=== PATIENT | female | born 1950 | race Hispanic/Latino ===

== ENCOUNTER 2018-03-28 07:30 | Day surgery (SDC) | payer OTHER ==
--- NOTE | 2018-03-23 15:52 | RAD REPORT ---
EXAM DESCRIPTION: RAD - Chest Pa And Lat (2 Views) - 03/23/2018 3:00 pm CLINICAL HISTORY: Preop chest, pending cardiac catheterization COMPARISON: None. TECHNIQUE: PA and lateral views of the chest were obtained. FINDINGS: The lungs are clear. Interstitial markings are mildly prominent believed be baseline. Hea rt size is normal and central vasculature is within normal limits. No pleural effusion or pneumothor ax seen. No acute bony finding noted. No aortic abnormality. IMPRESSION: No acute cardiopulmonary process.
[2018-03-23 16:21] LABS: Absolute Lymphocytes (CBC) 1.9 K/uL (0.7-4.9); Absolute Monocytes 0.5 K/uL (0.1-1.3); Absolute Neutrophil 6.7 K/uL (1.8-8.0); Basophils % 0.4 % (0-1.3); Eosinophils % 1.3 % (0-4.4); Hematocrit 39.3 % (36.0-45.0); Lymphocytes % 20.8 % (15.3-44.8); MCH 30.4 pg (27.0-35.0); MPV 8.1 fL (7.6-11.3); Monocytes % 5.3 % (3.3-12.3); RBC Red Blood Cell Count 4.37 M/uL (3.86-4.86)
[2018-03-23 17:25] LABS: BUN Blood Urea Nitrogen 12 mg/dL (6-20); Bicarbonate 30 mEq/L (21-31); Glucose Level 88 mg/dL (65-120); Potassium 3.8 mEq/L (3.6-5.0); Sodium Level 139 mEq/L (135-145)
[2018-03-28] MEDS ORDERED: NA CHLORIDE 0.9% 500 ML ONE (07:54)
[2018-03-28] MEDS ORDERED: MIDAZOLAM HCL 2 MG/2 ML INJ ONE ×2 (10:43→11:02)
[2018-03-28] MEDS ORDERED: HEPA 1000U/500MLS 1,000 UNIT/500 ML BAG IV ONE (10:43)
[2018-03-28] MEDS ORDERED: LIDOCAINE 1% 20 ML MDV ONE (10:43)
[2018-03-28] MEDS ORDERED: FENTANYL CITR 100 MCG/2 ML ONE (10:44)
--- NOTE | 2018-03-29 12:10 | OP ---
Surgeon: Leif Cazares MD Plug Assembler: Elvie Tobias. Procedure: Left heart catheterization, selective coronary arteriogram. Indication: Unstable angina. History Of Present Illness: Ms. Miguel was brought to the filling station laborer as an outpatient. She was prepped and draped in the routine sterile fashion. Given 4 mg of Versed for IV sedation. 6-Lithuanian sheath i ntroduced in the right common femoral artery. Angio-Seal was used to close the case. 6-Lithuanian bakari ter was used to do the diagnostic coronary arteriogram. What I found approximately 3 years ago, Ms. Miguel had a calcified shell like lesion in the main, ostial right main and left main with about 20-30 % stenosis. Rest of the arteries were free of disease. The patient tolerated the procedure well. T here were no complications. Estimated Blood Loss: 5 cc. Total Conscious Sedation: 30 minutes. Final Diagnosis: Mild to moderate coronary artery disease. Continue medical therapy. ISAIAH/KERRY Voice ID: [id number] Report ID: [id number]
== END 2018-03-28 13:38 | disposition home or self-care (01) ==
LOC: CCL 07:30
DX: I25.110 Atherosclerotic heart disease of native coronary artery with unstable angina pectoris (principal); I65.23 Occlusion and stenosis of bilateral carotid arteries; I10 Essential (primary) hypertension; E78.5 Hyperlipidemia, unspecified; E78.6 Lipoprotein deficiency; K21.0 Gastro-esophageal reflux disease with esophagitis; F41.9 Anxiety disorder, unspecified; Z98.61 Coronary angioplasty status; Z91.018 Allergy to other foods; Z82.49 Family history of ischemic heart disease and other diseases of the circulatory system
CPT/HCPCS: 36415; 71046; 80048; 85025; 85610; 85730; 93454; C1893; J2250 ×2; J3010

== ENCOUNTER 2020-08-17 11:09 | Emergency (ER) | payer OTHER ==
--- OUTSIDE RECORDS SUMMARY | 2020-08-17 11:11 | XMS REPORT | Continuity of Care Document ---
:1950 Author Organization [facility] t Address [address] [place] [address] Care Team Providers Name Role Phone Diana Guillermo MD Attending Clinician Only, Test Attending Clinician Unavailable Diana Guillermo MD Admitting Clinician Problems This patient has no known problems. Allergies, Adverse Reactions, Alerts This patient has no known allergies or adverse reactions. Medications This patient has no known medications. Procedures This patient has no known procedures. Encounters Start End Encounter Admission Attending Care Care Encounter Source Date/Time Date/Time Type Type Clinicians Facility Department ID 2020-04-24 2020-04-24 [facility] [id number] 07:23:00 10:37:00 Encounter [place] [facility] [id number] [place] [id number] [facility] [id number] [place] 071 2020-04-23 2020-04-23 Laboratory Only, [facility] [id number] 13:23:58 13:38:58 Only Test [place] [id number] [place] [id number] [place] [id number] Results This patient has no known results.
[2020-08-17] MEDS ORDERED: MORPHINE 2 MG/ML SYR ONE ×2 (11:43→12:35)
[2020-08-17] MEDS ORDERED: ONDANSETRON 4 MG/2 ML VIAL ONE (11:43)
[2020-08-17 12:00] LABS: Protime INR 0.93
[2020-08-17 12:01] LABS: Absolute Lymphocytes (CBC) 1.8 K/uL (0.7-4.9); Basophils % 0.3 % (0-1.3); Hematocrit 39.4 % (36.0-45.0); Lymphocytes % 25.2 % (15.3-44.8); MPV 8.8 fL (7.6-11.3); RBC Red Blood Cell Count 4.42 M/uL (3.86-4.86)
[2020-08-17 12:18] LABS: ALT/SGPT 23 U/L (12-78); AST/SGOT 18 U/L (15-37); Albumin 3.7 g/dL (3.4-5.0); Alkaline Phosphatase 114 U/L (45-117); BUN Blood Urea Nitrogen 11 mg/dL (7-18); Bicarbonate 28 mmol/L (21-32); Bilirubin Direct < 0.1 mg/dL (0-0.2); Bilirubin Total 0.4 mg/dL (0.2-1.0); Glucose Level 94 mg/dL (74-106); NT PRO-BNP 288 pg/mL (<125); Potassium 3.5 mmol/L (3.5-5.1); Protein, Total 7.4 g/dL (6.4-8.2); Sodium Level 142 mmol/L (136-145); Troponin (Emerg Dept Use Only) < 0.02 ng/mL (0.0-0.045)
--- NOTE | 2020-08-17 12:19 | RAD REPORT ---
EXAM DESCRIPTION: RAD - Chest Single View - 08/17/2020 12:14 pm CLINICAL HISTORY: chest pain Chest pain. COMPARISON: Chest Pa And Lat (2 Views) dated 03/23/2018 FINDINGS: Portable technique limits examination quality. The lungs are grossly clear. The heart is upper limit of normal in size. No displaced fractures. IMPRESSION: No acute intrathoracic process suspected.
--- NOTE | 2020-08-17 13:30 | RAD REPORT ---
EXAM DESCRIPTION: CT - Angio Aorta For Dissection - 08/17/2020 1:08 pm CLINICAL HISTORY: Chest pain radiating to the back. chest pain COMPARISON: No comparisons TECHNIQUE: CT angiography of the aorta was performed with MIPs. All CT scans are performed using dose optimization technique as appropriate and may include automated exposure control or mA/KV adjustment according to patient size. FINDINGS: A left aortic arch is present with normal branching pattern of the great vessels.No acute aortic finding is seen such as aneurysm, penetrating ulcer or dissection. The celiac axis, SMA, JONATHON and renal arteries are patent. No evidence of pulmonary embolism. The lungs are clear. The liver demonstrates no focal mass or biliary dilatation.Cholecystectomy.The spleen, pancreas, adre nal glands and kidneys are within normal limits for arterial phase imaging. No bowel obstruction, free fluid or abscess.Prominent sigmoid diverticulosis coli without diverticuli tis.No pathologic enlarged lymphadenopathy identified.Normal appendix. No fracture or worrisome bone lesion seen. IMPRESSION: No acute aortic finding is demonstrated.
--- NOTE | 2020-08-17 15:21 | EDPHYS ---
Physician Documentation [facility] Name: Dari Miguel Age: 70 yrs Sex: Female : 1950 Arrival Date: 08/17/2020 Time: 11:11 Bed 16 Private MD: Leif Cazares S ED Physician Fco Hinojosa HPI: 08/17 11:25 This 70 yrs old Female presents to ER via Unassigned with complaints of Chest rn Pain, Back Pain. 11:25 The patient or guardian reports chest pain that is located primarily in the substernal rn area. The patient or guardian reports chest pain that is located primarily in the anterior chest wall. Onset: this morning. The pain radiates to The chest pain is described as a heaviness, a pressure. Duration: The patient or guardian reports multiple episodes, that are intermittent. Modifying factors: The symptoms are alleviated by nothing. the symptoms are aggravated by deep breath. Severity of pain: At its worst the pain was moderate in the emergency department the pain is unchanged. The patient has not experienced similar symptoms in the past. The patient has not recently seen a physician. Reports back pain yesterday, began with chest pain this morning, no trauma, did do yard work yesterday, not getting better, feels worse, no fever/cough. Hurts more with deep breath. No cough/fever/abd pain. Just had stress test as outpt with Dr. cazares, but no results yet. . Historical: - Allergies: 11:13 PECANS; aa5 11:13 Peanut; aa5 - Home Meds: 11:15 metoprolol tartrate 25 mg Oral tab once daily [Active]; omeprazole 40 mg Oral cpDR once aa5 daily [Active]; Plavix 75 mg Oral tab 1 tab once daily [Active]; furosemide 20 mg oral tab once daily [Active]; alprazolam 0.25 mg Oral tab 3 times per day [Active]; atorvastatin 40 mg oral tab once daily [Active]; - PMHx: 11:13 Hyperlipidemia; Anxiety; Hypertension; Acid Reflux; aa5 - PSHx: 11:13 Hysterectomy; Cholecystectomy; Appendectomy; aa5 - Immunization history:: Adult Immunizations unknown. - Social history:: Smoking status: Patient denies any tobacco usage or history of. - Family history:: not pertinent. - Hospitalizations: : No recent hospitalization is reported. ROS: 11:25 Constitutional: Negative for fever, chills, and weight loss, Eyes: Negative for injury, rn pain, redness, and discharge, Neck: Negative for injury, pain, and swelling, Cardiovascular: Negative for palpitations, and edema, Respiratory: Negative for cough, wheezing Abdomen/GI: Negative for abdominal pain, nausea, vomiting, diarrhea, and constipation, Back: + mid back pain MS/Extremity: Negative for injury and deformity, Skin: Negative for injury, rash, and discoloration, Neuro: Negative for headache, weakness, numbness, tingling, and seizure. Exam: 11:25 Constitutional: This is a well developed, well nourished patient who is awake, alert, rn sitting on edge of bed, appears anxious and uncomfortable Head/Face: Normocephalic, atraumatic. Cardiovascular: Regular rate and rhythm. No pulse deficits. Respiratory: Speaking full sentences. Unlabored. Abdomen/GI: soft, non-tender Back: No spinal tenderness. MS/ Extremity: Pulses equal, no cyanosis. Neuro: Awake and alert, GCS 15, oriented to person, place, time, and situation. Cranial nerves II-XII grossly intact. Motor strength 5/5 in all extremities. Sensory grossly intact. Vital Signs: 11:15 BP 185 / 63; Pulse 69; Resp 16 S; Temp 98.2(O); Pulse Ox 99% on R/A; Weight 90.72 kg aa5 (R); Height 5 ft. 0 in. (152.40 cm) (R); Pain 9/10; 11:48 BP 146 / 62; Pulse 60; Resp 20; Pulse Ox 100% on R/A; Pain 10/10; tw2 12:54 BP 135 / 49; Pulse 63; Resp 17; Pulse Ox 99% on R/A; Pain 10/10; tw2 13:50 BP 144 / 54; Pulse 66; Resp 17; Pulse Ox 98% on R/A; tw2 14:52 Pain 4/10; tw2 14:53 BP 116 / 60; Pulse 81; Resp 20; Pulse Ox 99% on R/A; tw2 11:15 Body Mass Index 39.06 (90.72 kg, 152.40 cm) aa5 11:48 pt reports pain "10 when it hits me, but it comes and goes" tw2 12:54 "its a 10 when it hits me, but it still hurts" tw2 MDM: 11:16 Patient medically screened. rn 12:29 ED course: No acute ischemia on ECG, neg troponin, clear CXR, improved some with repeat rn morphine. Awaiting CT aorta given chest and back pain. . 14:10 ED course: Called Dr. Cazares to discuss results of stress a few days ago, no answer. rn Unable to see results in our system, so put out call to [employer] instrument and tool maker service. Awaiting call back. Pain resolved. No acute findings. Repeat troponin sent. . 15:17 Differential diagnosis: acute myocardial infarction, acute pericarditis, anxiety, rn coronary artery disease chest wall pain, costochondritis, esophagitis, gastroesophageal reflux disease (GERD), pleurisy, pneumothorax, thoracic aortic disection. Data reviewed: vital signs, nurses notes, lab test result(s), EKG, radiologic studies, CT scan, plain films, and as a result, I will discharge patient. Counseling: I had a detailed discussion with the patient and/or guardian regarding: the historical points, exam findings, and any diagnostic results supporting the discharge/admit diagnosis, lab results, radiology results, the need for outpatient follow up, to return to the emergency department if symptoms worsen or persist or if there are any questions or concerns that arise at home. ED course: NO call back from cardiology. Repeat troponin negative, pain free, has appt with Dr. Cazares tomorrow at 10 AM, will dc home with return precautions. No ischemia on ECG.. 15:20 ED course: Pt reports this has been happening for months, just lasted longer today so rn worried her, states Dr. Cazares aware of these daily episodes. . 16:32 ED course: Aaron Cazares called back, reports stress test was normal and previous cath rn clean. Will see in clinic tomorrow as scheduled. . 08/17 11:52 Order name: Basic Metabolic Panel; Complete Time: 12:22 EDMS 08/17 11:52 Order name: Liver (Hepatic) Function; Complete Time: 12:22 EDMS 08/17 11:52 Order name: Troponin (Emerg Dept Use Only); Complete Time: 12:22 EDMS 08/17 11:52 Order name: NT PRO-BNP; Complete Time: 12:22 EDMS 08/17 11:52 Order name: CBC with Automated Diff; Complete Time: 12:22 EDMS 08/17 11:52 Order name: Protime (+INR); Complete Time: 12:22 EDMS 08/17 14:00 Order name: Troponin (emerg Dept Use Only); Complete Time: 15:16 rn 08/17 11:24 Order name: EKG; Complete Time: 12:07 rn 08/17 11:24 Order name: Cardiac monitoring; Complete Time: 11:26 rn 08/17 11:24 Order name: EKG - Nurse/Tech; Complete Time: 11:39 rn 08/17 11:24 Order name: IV Saline Lock; Complete Time: 11:39 rn 08/17 11:24 Order name: Labs collected and sent; Complete Time: 11:39 rn 08/17 11:24 Order name: O2 Per Protocol; Complete Time: 11:46 rn 08/17 11:24 Order name: O2 Sat Monitoring; Complete Time: 11:46 rn 08/17 11:58 Order name: Angio Aorta For Dissection; Complete Time: 13:34 EDMS 08/17 11:58 Order name: Chest Single View; Complete Time: 12:22 EDMS Administered Medications: 11:35 Drug: morphine 2 mg Route: IVP; Site: right antecubital; tw2 11:35 Drug: Zofran (Ondansetron) 4 mg Route: IVP; Site: right antecubital; tw2 12:55 Follow up: Response: No adverse reaction tw2 12:26 Drug: morphine 2 mg Route: IVP; Site: right antecubital; tw2 12:29 Follow up: Response: No adverse reaction; Pain is unchanged, physician notified; RASS: tw2 Alert and Calm (0) 14:01 Follow up: Response: No adverse reaction; Pain is unchanged, physician notified; RASS: tw2 Alert and Calm (0) 14:52 Follow up: Pain 4/10 Adult; Response: No adverse reaction; Pain is decreased; RASS: tw2 Alert and Calm (0) Disposition: 08/17/20 15:19 Discharged to Home. Impression: Chest pain, unspecified. - Condition is Stable. - Discharge Instructions: Nonspecific Chest Pain. - Prescriptions for Tramadol 50 mg Oral Tablet - take 1 tablet by ORAL route every 8 hours as needed; 12 tablet. - Medication Reconciliation Form, Thank You Letter, Antibiotic Education, Prescription Opioid Use form. - Follow up: Leif Cazares MD; When: Tomorrow; Reason: Recheck today's complaints, Re-evaluation by your physician. - Problem is an ongoing problem. - Symptoms have improved. Signatures: Dispatcher [employer] EDDC Fco Hinojosa MD MD rn Calderon, Audri RN RN aa5 Dacia Sloan RN RN tw2 Corrections: (The following items were deleted from the chart) 12:14 12:07 Chest Single View+RAD.RAD.BRZ ordered. EDMS EDMS 12:16 12:06 BASIC METABOLIC PANEL+C.LAB.BRZ ordered. EDMS EDMS 12:16 12:07 HEPATIC FUNCTION+C.LAB.BRZ ordered. EDMS EDMS 12:16 12:07 PROBNP+C.LAB.BRZ ordered. EDMS EDMS 12:16 12:07 TROPONIN (EMERG DEPT USE ONLY)+C.LAB.BRZ ordered. EDMS EDMS 12:16 12:07 LIPASE+C.LAB.BRZ ordered. EDMS EDMS 12:18 12:07 Angio Aorta For Dissection+CT.RAD.BRZ ordered. EDDC EDMS 12:28 12:07 CBC+H.LAB.BRZ ordered. EDMS EDMS 12:29 12:07 PROTIME (+INR)+COAG.LAB.BRZ ordered. EDDC EDMS 15:32 15:19 08/17/2020 15:19 Discharged to Home. Impression: Chest pain, unspecified. tw2 Condition is Stable. Forms are Medication Reconciliation Form, Thank You Letter, Antibiotic Education, Prescription Opioid Use. Follow up: Leif Cazares; When: Tomorrow; Reason: Recheck today's complaints, Re-evaluation by your physician. Problem is an ongoing problem. Symptoms have improved. rn
--- NOTE | 2020-08-17 15:21 | ER ---
Nurse's Notes [facility] Name: Dari Miguel Age: 70 yrs Sex: Female : 1950 Arrival Date: 08/17/2020 Time: 11:11 Bed 16 Private MD: Leif Cazares S Diagnosis: Chest pain, unspecified Presentation: 08/17 11:13 Chief complaint: Patient states: chest pain radiating to back that began this morning. aa5 Pt denies fever, cough. Pt reports hx of anxiety and also reports she takes Plavix but does not know the reason why. 11:13 Coronavirus screen: Client denies travel out of the [place] in the last 14 days. At this aa5 time, the client does not indicate any symptoms associated with coronavirus-19. Ebola Screen: Patient negative for fever greater than or equal to 101.5 degrees Fahrenheit, and additional compatible Ebola Virus Disease symptoms. Initial Sepsis Screen: Does the patient meet any 2 criteria? No. Patient's initial sepsis screen is negative. Does the patient have a suspected source of infection? No. Patient's initial sepsis screen is negative. Risk Assessment: Do you want to hurt yourself or someone else? Patient reports no desire to harm self or others. Onset of symptoms was July 2020. 11:13 Acuity: ANISHA 3 aa5 11:13 Method Of Arrival: Wheelchair aa5 Historical: - Allergies: 11:13 PECANS; aa5 11:13 Peanut; aa5 - Home Meds: 11:15 metoprolol tartrate 25 mg Oral tab once daily [Active]; omeprazole 40 mg Oral cpDR once aa5 daily [Active]; Plavix 75 mg Oral tab 1 tab once daily [Active]; furosemide 20 mg oral tab once daily [Active]; alprazolam 0.25 mg Oral tab 3 times per day [Active]; atorvastatin 40 mg oral tab once daily [Active]; - PMHx: 11:13 Hyperlipidemia; Anxiety; Hypertension; Acid Reflux; aa5 - PSHx: 11:13 Hysterectomy; Cholecystectomy; Appendectomy; aa5 - Immunization history:: Adult Immunizations unknown. - Social history:: Smoking status: Patient denies any tobacco usage or history of. - Family history:: not pertinent. - Hospitalizations: : No recent hospitalization is reported. Screenin:47 Abuse screen: Denies threats or abuse. Nutritional screening: No deficits noted. tw2 Tuberculosis screening: No symptoms or risk factors identified. Fall Risk Secondary diagnosis (15 points) impaired mobility. Assessment: 11:18 Reassessment: provider at bedside at this time. tw2 11:30 General: Appears in no apparent distress. uncomfortable, obese, well groomed, Behavior tw2 is calm, cooperative, appropriate for age. Pain: Complains of pain in chest Pain radiates to back Pain began 1 day ago. "last night". Neuro: Level of Consciousness is awake, alert, obeys commands, Oriented to person, place, time, situation. Cardiovascular: Reports chest pain, Heart tones S1 S2 Patient's skin is warm and dry. Respiratory: Airway is patent Respiratory effort is even, unlabored, Respiratory pattern is regular, symmetrical, Breath sounds are clear bilaterally. GI: No signs and/or symptoms were reported involving the gastrointestinal system. Abdomen is round non-distended, obese, Bowel sounds present X 4 quads. : No signs and/or symptoms were reported regarding the genitourinary system. EENT: No signs and/or symptoms were reported regarding the EENT system. Derm: No signs and/or symptoms reported regarding the dermatologic system. Musculoskeletal: Range of motion: intact in all extremities. 12:30 Reassessment: Patient appears in no apparent distress at this time. No changes from tw2 previously documented assessment. Patient and/or family updated on plan of care and expected duration. Pain level reassessed. Patient is alert, oriented x 3, equal unlabored respirations, skin warm/dry/pink. 13:58 Reassessment: provider at bedside at this time. tw2 14:01 Reassessment: Patient appears in no apparent distress at this time. No changes from tw2 previously documented assessment. Patient and/or family updated on plan of care and expected duration. Pain level reassessed. Patient is alert, oriented x 3, equal unlabored respirations, skin warm/dry/pink. 14:35 Reassessment: pt in restroom at this time, will draw repeat Trop after pt returns from tw2 restroom. 14:52 Reassessment: Patient appears in no apparent distress at this time. Patient and/or tw2 family updated on plan of care and expected duration. Pain level reassessed. Patient is alert, oriented x 3, equal unlabored respirations, skin warm/dry/pink. pt states "that second dose of pain medicine helped, i still feel it but is bearable. its like a 3 or 4 now" Patient states feeling better. Patient states symptoms have improved. 15:22 Reassessment: provider at bedside at this time going over results and discharge tw2 information. provider to add medication prescription at this time PRIOR to discharge. 15:31 Reassessment: Patient appears in no apparent distress at this time. No changes from tw2 previously documented assessment. Patient and/or family updated on plan of care and expected duration. Pain level reassessed. Patient is alert, oriented x 3, equal unlabored respirations, skin warm/dry/pink. Vital Signs: 11:15 BP 185 / 63; Pulse 69; Resp 16 S; Temp 98.2(O); Pulse Ox 99% on R/A; Weight 90.72 kg aa5 (R); Height 5 ft. 0 in. (152.40 cm) (R); Pain 9/10; 11:48 BP 146 / 62; Pulse 60; Resp 20; Pulse Ox 100% on R/A; Pain 10/10; tw2 12:54 BP 135 / 49; Pulse 63; Resp 17; Pulse Ox 99% on R/A; Pain 10/10; tw2 13:50 BP 144 / 54; Pulse 66; Resp 17; Pulse Ox 98% on R/A; tw2 14:52 Pain 4/10; tw2 14:53 BP 116 / 60; Pulse 81; Resp 20; Pulse Ox 99% on R/A; tw2 11:15 Body Mass Index 39.06 (90.72 kg, 152.40 cm) aa5 11:48 pt reports pain "10 when it hits me, but it comes and goes" tw2 12:54 "its a 10 when it hits me, but it still hurts" tw2 ED Course: 11:11 Patient arrived in ED. ag5 11:11 Leif Cazares MD is Private Physician. ag5 11:13 Arm band placed on Patient placed in an exam room, on a stretcher. aa5 11:16 Fco Hinojosa MD is Attending Physician. rn 11:18 Dacia Sloan RN is Primary Nurse. tw2 11:22 EKG done, by ED staff, reviewed by Fco Hinojosa MD. aa5 11:28 Triage completed. aa5 11:35 Inserted saline lock: 20 gauge in right antecubital area, using aseptic technique. tw2 Blood collected. 11:39 Patient has correct armband on for positive identification. Placed in gown. Bed in low mh5 position. Call light in reach. Side rails up X 1. Adult w/ patient. Warm blanket given. house repairer on. Pulse ox on. NIBP on. 11:39 Initial lab(s) drawn, by me, sent to lab. mh5 11:47 Patient maintains SpO2 saturation greater than 95% on room air. tw2 12:14 Chest Single View In Process Unspecified. EDMS 13:08 Angio Aorta For Dissection In Process Unspecified. EDMS 14:52 Troponin (emerg Dept Use Only) Sent. tw2 15:19 Leif Cazares MD is Referral Physician. rn 15:31 No provider procedures requiring assistance completed. IV discontinued, intact, tw2 bleeding controlled, No redness/swelling at site. Pressure dressing applied. Administered Medications: 11:35 Drug: morphine 2 mg Route: IVP; Site: right antecubital; tw2 11:35 Drug: Zofran (Ondansetron) 4 mg Route: IVP; Site: right antecubital; tw2 12:55 Follow up: Response: No adverse reaction tw2 12:26 Drug: morphine 2 mg Route: IVP; Site: right antecubital; tw2 12:29 Follow up: Response: No adverse reaction; Pain is unchanged, physician notified; RASS: tw2 Alert and Calm (0) 14:01 Follow up: Response: No adverse reaction; Pain is unchanged, physician notified; RASS: tw2 Alert and Calm (0) 14:52 Follow up: Pain 4/10 Adult; Response: No adverse reaction; Pain is decreased; RASS: tw2 Alert and Calm (0) Outcome: 15:19 Discharge ordered by . rn 15:31 Discharged to home via wheelchair, with family. tw2 15:31 Condition: stable 15:31 Discharge instructions given to patient, family, Instructed on discharge instructions, follow up and referral plans. no drinking with medication, no driving heavy equipment, medication usage, Demonstrated understanding of instructions, follow-up care, medications, Prescriptions given X 1. 15:32 Patient left the ED. tw2 Signatures: Dispatcher [employer] EDFco Casillas MD MD rn Calderon, Audri, RN RN luis5 Dacia Sloan RN RN tw2 Dari Reddy [facility] Allyson Lockhart [facility] Corrections: (The following items were deleted from the chart) 11:47 11:39 Inserted saline lock: 20 gauge in right antecubital area, using aseptic tw2 technique. Blood collected. [facility]
[2020-08-17 15:38] VITALS: TEMP 98.2
[2020-08-17 15:45] VITALS: BP 116/60; O2SAT 99
--- NOTE | 2020-08-19 16:12 | EKG ---
Test Date: 2020-08-17 Test Time: 12:26:48 Warehouse Assistant: ANTWAN MEASUREMENT RESULTS: Intervals: Rate: 70 AR: 160 QRSD: 86 QT: 400 QTc: 432 Proctor: P: 64 AR: 160 QRS: 43 T: 55 INTERPRETIVE STATEMENTS: Normal sinus rhythm with sinus arrhythmia Normal ECG Compared to ECG 08/17/2020 11:22:10 Myocardial infarct finding no longer present Electronically Signed On 08-19-20 16:08:30 CDT by Leif Cazares
== END 2020-08-17 15:32 | disposition home or self-care (01) ==
LOC: ER 11:09
DX: R07.9 Chest pain, unspecified (principal); I10 Essential (primary) hypertension; E78.5 Hyperlipidemia, unspecified; F41.9 Anxiety disorder, unspecified; Z79.01 Long term (current) use of anticoagulants; Z91.018 Allergy to other foods; Z91.010 Allergy to peanuts
CPT/HCPCS: 93005 ×2; 85025; 80048; 36415; 85610; 80076; 84484 ×2; 83880; 71275; 74175; 71045; 96375; 96374; 99285; Q9967; J2270 ×2; J2405

== ENCOUNTER 2022-03-18 09:58 | Emergency (ER) | payer OTHER ==
--- OUTSIDE RECORDS SUMMARY | 2022-03-18 10:02 | XMS REPORT | Continuity of Care Document ---
:1950 Author Organization [facility] t Address [address] [place] [address] Care Team Providers Name Role Phone YIN Primary Care Physician Unavailable MEL JOSEPH Attending Clinician Unavailable Diana SHCILLING Attending Clinician Unavailable RADIOLOGY Attending Clinician Unavailable Diana Schilling MD Attending Clinician Only, Test Attending Clinician Unavailable MEL JOSEPH Admitting Clinician Unavailable Diana SCHILLING Admitting Clinician Unavailable Diana Schilling MD Admitting Clinician Payers Payer Name Policy Type Policy Number Effective Date Expiration Date [facility] [id number] 2021 [facility] [place] 00:00:00 P[place] [employer] MEDICARE [id number] 2018 00:00:00 Problems Condition Condition Condition Status Onset Resolution Last Treating Co mments Source Name Details Category Date Date Treatment Clinician Date No known No known Disease Unive rs active active ity of problems problems [facility] Allergies, Adverse Reactions, Alerts Allergy Allergy Status Severity Reaction(s) Onset Inactive Treating Comm ents Source Name Type Date Date Clinician Tree Propensi Active Swelling 2020-0 Univer s Nuts ty to 6-23 ity of adverse 00:00: [place] reaction 00 Medical s [place] TREE Food Active Swelling 2020-0 Univers NUTS 6-23 ity of 00:00: [place] 00 Medical [place] Social History Social Habit Start Date Stop Date Quantity Comments Source Sex Assigned At Uni versity [facility] Exposure to SARS-CoV-2 Not sure [facility] [place] (event) Medical [place] Smoking Status Start Date Stop Date Source Never smoker [facility] Medications Ordered Filled Start Stop Current Ordering Indication Dosage Frequency Signature Comments Components Source Medication Medication Date Date Medication? Clinician (SIG) Name Name omeprazole 2020-0 Yes 40mg Take 40 mg U nivers 40 mg 6-25 by mouth ity of capsule 17:24: daily. [place] [address] Medical Branch furosemide 2020-0 Yes 20mg Take 20 mg U nivers 20 mg 6-25 by mouth ity of tablet 17:24: daily. [place] [address] Medical Branch metoprolol 2020-0 Yes 1{tbl} Take 1 Uni vers succinate 6-25 tablet by ity o f XL 25 mg 24 17:24: mouth [place] hr tablet 56 daily. Medical Branch atorvastati 2020-0 Yes 20mg Take 20 mg Univers n 20 mg 6-25 by mouth ity of tablet 17:24: at [place] [address] bedtime. Medical Branch clopidogreL 2020-0 Yes 75mg Take 75 mg Univers 75 mg 6-25 by mouth ity of tablet 17:24: daily. [place] [address] Medical Branch ALPRAZolam 2020-0 Yes .25mg Take 0.25 U nivers (XANAX) 6-25 mg by ity of 0.25 mg 17:24: mouth [place] tablet 56 daily. Medical Branch diphenhydrA 2019-0 Yes 25mg Take 25 mg Univers MINE 6-25 by mouth ity of (BENADRYL) 17:24: every 6 [place] 25 mg 56 (six) Medical capsule hours as Branch needed for Allergies. olopatadine 2019-0 Yes 1[drp] Place 1 U nivers (PAZEO) 0.7 6-25 Drop in ity o f % Drop 17:24: each eye [place] 56 as needed Medical (allergies Branch ). water for 2019-0 Yes PRN, Univers irrigation 6-25 Starting ity o f irrigation 14:24: Meri [place] solution 00 04/24/20 at Medic al 0924, Branch Until Discontinu ed, Routine, Intra-op simethicone 2020-0 Yes PRN, Univer s (GAS RELIEF 6-25 Starting ity of (SIMETHICON 14:24: Meri [place] E)) 40 00 04/24/20 at Medical mg/0.6 mL 0924, Branch drops Until Discontinu ed, Routine, Intra-op lactated 2019-0 2020- No 1000mL at 20 Unive rs ringers IV 6-25 06-25 mL/hr, ity of infusion 12:45: 12:37 1,000 mL, [place] as 1,000 mL 00 :00 IV Medical Infusion, Branch ONCE, 1 dose, Meri 04/24/20 at 0745, Routine, DSU Pre-op clopidogreL 2020-0 Yes 75mg Take 75 mg Univers 75 mg 6-23 by mouth ity of tablet 19:13: daily. [place] [address] Medical Branch ALPRAZolam 2020-0 Yes .25mg Take 0.25 U nivers (XANAX) 6-23 mg by ity of 0.25 mg 19:13: mouth [place] tablet 39 daily. Medical Branch diphenhydrA 2020-0 Yes 25mg Take 25 mg Univers MINE 6-23 by mouth ity of (BENADRYL) 19:13: every 6 [place] 25 mg 39 (six) Medical capsule hours as Branch needed for Allergies. olopatadine 2020-0 Yes 1[drp] Place 1 U nivers (PAZEO) 0.7 6-23 Drop in ity o f % Drop 19:13: each eye [place] [address] as needed Medical (allergies Branch ). clopidogreL 2020-0 Yes 75mg Take 75 mg Univers 75 mg 6-23 by mouth ity of tablet 19:13: daily. [place] [address] Medical Branch ALPRAZolam 2020-0 Yes .25mg Take 0.25 U nivers (XANAX) 6-23 mg by ity of 0.25 mg 19:13: mouth [place] tablet 39 daily. Medical Branch diphenhydrA 2020-0 Yes 25mg Take 25 mg Univers MINE 6-23 by mouth ity of (BENADRYL) 19:13: every 6 [place] 25 mg 39 (six) Medical capsule hours as Branch needed for Allergies. olopatadine 2020-0 Yes 1[drp] Place 1 U nivers (PAZEO) 0.7 6-23 Drop in ity o f % Drop 19:13: each eye [place] [address] as needed Medical (allergies Branch ). atorvastati 2020-0 Yes 20mg Take 20 mg Univers n 20 mg 6-23 by mouth ity of tablet 19:13: at [place] [address] bedtime. Medical Branch omeprazole 2020-0 Yes 40mg Take 40 mg U nivers 40 mg 6-23 by mouth ity of capsule 19:13: daily. [place] [address] Medical Branch furosemide 2020-0 Yes 20mg Take 20 mg U nivers 20 mg 6-23 by mouth ity of tablet 19:13: daily. [address] metoprolol 2019- Yes 1{tbl} Take 1 Uni vers succinate 6-23 tablet by ity o f XL 25 mg 24 19:13: mouth [place] hr tablet 38 daily. Medical Branch atorvastati 2019-0 Yes 20mg Take 20 mg Univers n 20 mg 6-23 by mouth ity of tablet 19:13: at [place] [address] bedtime. Medical Branch omeprazole 2019-0 Yes 40mg Take 40 mg U nivers 40 mg 6-23 by mouth ity of capsule 19:13: daily. [place] [address] Medical Branch furosemide 2019-0 Yes 20mg Take 20 mg U nivers 20 mg 6-23 by mouth ity of tablet 19:13: daily. [address] metoprolol 2019- Yes 1{tbl} Take 1 Uni vers succinate 6-23 tablet by ity o f XL 25 mg 24 19:13: mouth [place] hr tablet 38 daily. Medical Branch Vital Signs Vital Name Observation Time Observation Value Comments Source Systolic blood 2020-04-24 15:05:00 145 mm[Hg] Univer sity of [facility] Diastolic blood 2020-04-24 15:05:00 49 mm[Hg] Unive rsity [facility] Heart rate 2020-04-24 15:05:00 70 /min [facility] Body temperature 2020-04-24 15:05:00 36.94 Basia [facility] Respiratory rate 2020-04-24 15:05:00 23 /min [facility] Oxygen saturation in 2020-04-24 15:05:00 97 /min [facility] Arterial blood by [facility] Pulse oximetry Branch Body height 2020-04-22 19:00:00 152.4 cm [facility] Body weight 2020-04-22 19:00:00 88.905 kg [facility] BMI 2020-04-22 19:00:00 38.28 kg/m2 [facility] Systolic blood 2020-04-24 15:05:00 145 mm[Hg] Univer sity of [facility] Diastolic blood 2020-04-24 15:05:00 49 mm[Hg] Unive rsity [facility] Heart rate 2020-04-24 15:05:00 70 /min [facility] Body temperature 2020-04-24 15:05:00 36.94 Basia [facility] Respiratory rate 2020-04-24 15:05:00 23 /min [facility] Oxygen saturation in 2020-04-24 15:05:00 97 /min [facility] blood by [facility] Pulse oximetry Branch Body height 2020-04-22 19:00:00 152.4 cm [facility] Body weight 2020-04-22 19:00:00 88.905 kg [facility] BMI 2020-04-22 19:00:00 38.28 kg/m2 [facility] Procedures Procedure Date / Time Performing Clinician Source Performed EGD (ENDO) 2020-04-24 14:05:27 Yin Pingree o f [facility] COVID-19 (ID NOW 2020-04-23 18:32:00 [facility] RAPID TESTING) [facility] Encounters Start End Encounter Admission Attending Care Care Encounter Source Date/Time Date/Time Type Type Clinicians Facility Department ID 2021-09-01 Outpatient R [facility] [id number] [facility] R [facility] [id number] Univers 02:40:20 DELORIS Payton ity [facility] 2021-12-04 2021-12-04 Outpatient R [facility] [id number] Univers 00:00:00 00:00:00 [id number] ity [facility] 2021-12-04 2021-12-04 Outpatient R RADIOLOGY [facility] [id number] Univers 00:00:00 00:00:00 ity [facility] 2021-08-25 2021-08-25 Outpatient R [facility] [id number] Univers 10:30:00 10:30:00 [id number] ity [facility] 2021-08-18 2021-08-18 Outpatient R [facility] [id number] Univers 11:45:00 11:45:00 [id number] ity [facility] 2021-08-18 2021-08-18 Outpatient R OPAL [facility] [id number] Univers 11:45:00 11:45:00 [facility] 2020-04-24 2020-04-24 [facility] [id number] 07:23:00 10:37:00 Encounter Deloris payton [id number] [place] [id number] Surgical [id number] [place] [address] 2020-04-24 2020-04-24 [facility] [id number] Univers 07:23:00 10:37:00 Encounter Deloris payton [id number] ity of [place] [id number] [facility] Surgical [id number] [address] 2020-04-23 2020-04-23 [id number] Univers 13:45:00 13:45:00 DELORIS Payton o f [facility] 2020-04-23 2020-04-23 Laboratory Only, [facility] Test [facility] [id number] Univers 13:23:58 13:38:58 Only Deloris Schillington [id number] 3.10 ity of [place] [id number] [facility] [place] [id number] [address] 2020-04-23 2020-04-23 Laboratory Only, [facility] [id number] 13:23:58 13:38:58 Only Test [place] [id number] [place] [id number] [place] [id number] Results Test Description Test Time Test Comments Results Result Comments Source CBC W/AUTO DIFF WITH PLATELETS 2022-02-04 08:35:24 Test Item Value Reference Range Interpretation Comme nts WBC (test code = 1001) 5.0 K/UL 3.5-11.0 RBC (test code = 1002) 4.34 M/UL 3.80-5.40 HEMOGLOBIN (test code = 13.0 G/DL 11.5-15.5 1003) HEMATOCRIT (test code = 38.4 % 34.0-45.0 1004) MCV (test code = 1005) 88.5 fL 80.0-99.0 MCH (test code = 1006) 30.0 PG 25.0-33.0 MCHC (test code = 1007) 33.9 G/DL 31.0-36.0 RDW (test code = 1038) 13.0 % 11.5-15.0 NEUTROPHILS (test code = 71.1 % 1008) LYMPHOCYTES (test code = 18.1 % 1010) MONOCYTES (test code = 1011) 9.6 % EOSINOPHILS (test code = 0.6 % 1012) BASOPHILS (test code = 1013) 0.4 % IMMATURE GRANULOCYTES (test 0.2 % code = 1036) NUCLEATED RBCS (test code = 0.0 /100 WBC'S See_Comment [Automated message] The 1065) system which ge nerated this result transmit zohra reference range : 0.0. The reference range was not used to interpr et this result as toney l/abnormal. PLATELET COUNT (test code = 234 K/UL 838-645 3222) ABSOLUTE NEUTROPHILS (test 3.54 K/UL 1.50-7.50 code = 1066) ABSOLUTE LYMPHOCYTES (test 0.90 K/UL 1.00-4.00 L code = 1067) ABSOLUTE MONOCYTES (test 0.48 K/UL 0.20-1.00 code = 1068) ABSOLUTE EOSINOPHILS (test 0.03 K/UL 0.00-0.50 code = 1040) ABSOLUTE BASOPHILS (test 0.02 K/UL 0.00-0.20 code = 1069) ABS IMMATURE GRANULOCYTES 0.01 K/UL 0.00-0.10 (test code = 1020) ABS NUCLEATED RBCS (test 0.00 K/UL 0.00-0.11 code = 24881) COMPREHENSIVE METABOLIC [id number] 06:57:11 Test Item Value Reference Range Interpretation Comments GLUCOSE (test code = 92 MG/DL 70-99 2216) BUN (test code = 10 MG/DL 8-23 2207) CREATININE (test 0.63 MG/DL 0.60-1.30 code = 2214) eGFR (2020 CKD-EPI) 94 >60 (test code = 55306) ML/MIN/1.73 CALC BUN/CREAT (test 16 RATIO 6-28 code = 2235) SODIUM (test code = 139 MEQ/L 032-913 9717) POTASSIUM (test code 3.5 MEQ/L 3.5-5.4 = 2227) CHLORIDE (test code 101 MEQ/L 95-107 = 221) CARBON DIOXIDE (test 25 MEQ/L 19-31 code = 220) CALCIUM (test code = 9.1 MG/DL 8.5-10.5 2208) PROTEIN, TOTAL (test 6.7 G/DL 6.1-8.3 code = 222) ALBUMIN (test code = 4.1 G/DL 3.5-5.2 2200) CALC GLOBULIN (test 2.6 G/DL 1.9-3.7 code = 224) CALC A/G RATIO (test 1.6 RATIO 1.0-2.6 code = 223) BILIRUBIN, TOTAL 0.7 MG/DL See_Comment [Automated message] (test code = 2206) The [employer] which generated this result transmitted ref erence range: <=1.2. T he reference range was not used to int erpret this result as normal/abnormal . ALKALINE PHOSPHATASE 111 U/L 40-142 (test code = 2203) AST (test code = 27 U/L 9-40 2217) ALT (test code = 19 U/L 5-40 UNLE SS 2218) OTHERWISE INDIC ATED, ALL TESTING PER FORMED ATCLINICAL PATH [facility], [place]. [address] [place] [address] LABORATORY DIRE CTOR: LAWRENCE CATES M.D. CLIA NUMBER [id number] CAP ACCREDITATION N O. [id number] LIPID [id number] 03:34:36 Test Item Value Reference Range Interpretation Comments CHOLESTEROL (test 162 MG/DL <200 code = 2210) TRIGLYCERIDES (test 129 MG/DL <150 code = 2232) HDL CHOLESTEROL (test 43 MG/DL >39 code = 2220) CALC LDL CHOL (test 96 MG/DL <100 NOTE: C ALCULATED LDL code = 2237) IS BASED ON NIMO-OANH METHOD WHICHINCLUDES ADJUSTABLE TRIGLYCERIDE:VL DL CHOLESTEROL RAT IO.THIS FACTOR VARIES B Y MEASURED TRIGLY CERIDE AND NON-HDLCHOL ESTEROL CONCENTRATIONS WITH INCREASED CALCU LATED LDL SEENIN HIGH ER TRIGLYCERIDE OR LOWER NON-HDL SPECIME NS. FOR MOREINFORMATION , SEE CLIENT ANNOUNCE MENT AT [email or web address] RISK RATIO LDL/HDL 2.23 RATIO <3.22 (test code = 2238) COMPREHENSIVE METABOLIC [id number] 03:34:36 Test Item Value Reference Range Interpretation Comments GLUCOSE (test code = 98 MG/DL 70-99 2216) BUN (test code = 11 MG/DL 8-23 2207) CREATININE (test 0.52 MG/DL 0.60-1.30 L EFFECTIVE code = 2214) 10/12/2021, [facility] HAS IMPLEMENTED THE NKF-ASN RECOMME NDED KD-EPI EGF R REFIT CALCULATI ON THAT DOES NOT I NCLUDE A COEFFICIENT FORRACE. FOR MO RE INFORMATION, SE E ANNOUNCEMENT [email or web address] eGFR (2020 CKD-EPI) 98 >60 (test code = 34044) ML/MIN/1.73 CALC BUN/CREAT (test 21 RATIO 6-28 code = 2235) SODIUM (test code = 142 MEQ/L 891-841 2758) POTASSIUM (test code 3.8 MEQ/L 3.5-5.4 = 222) CHLORIDE (test code 105 MEQ/L 95-107 = 2215) CARBON DIOXIDE (test 27 MEQ/L 19-31 code = 2206) CALCIUM (test code = 8.9 MG/DL 8.5-10.5 2208) PROTEIN, TOTAL (test 6.4 G/DL 6.1-8.3 code = 2229) ALBUMIN (test code = 4.0 G/DL 3.5-5.2 2200) CALC GLOBULIN (test 2.4 G/DL 1.9-3.7 code = 2240) CALC A/G RATIO (test 1.7 RATIO 1.0-2.6 code = 2234) BILIRUBIN, TOTAL 0.4 MG/DL See_Comment [Automated message] (test code = 2207) The syste m which generated this result transmitted ref erence range: <=1.2. T he reference range was not used to int erpret this result as normal/abnormal . ALKALINE PHOSPHATASE 123 U/L 40-142 (test code = 2204) AST (test code = 17 U/L 9-40 2218) ALT (test code = 15 U/L 5-40 UNLE SS 2219) OTHERWISE INDIC ATED, ALL TESTING PER FORMED ATCLINICAL PATH [facility], [place]. [address] [place] [address] LABORATORY DIRE CTOR: LAWRENCE CATES M.D. CLIA NUMBER [id number] CAP ACCREDITATION N O. [id number] COVID-19 (ID NOW RAPID TESTING)2020-04-23 19:24:00 Test Item Value Reference Range Interpretation Comments SARS-CoV-2 Rapid ID NOW Not Detected Not Detected (test code = 34672-1) NIRMAL (test code = NIRMAL) ID NOW COVID-19 Assay is an isothermal nucleic acid amplification test intended for the qualitative detection of nucleic acid from SARS-CoV-2 viral RNA in nasopharyngeal (FEATURE WRITER) specimens. It is used under Emergency Use Authorization (EUA) by FDA. The limit of detection (LOD) of the assay is 125 Genome Equivalents/mL. A positive result is indicative of the presence of SARS-CoV-2 RNA. ?Clinical correlation with patient history and other diagnostic information is necessary to determine patient infection status. A negative (Not Detected) result does not preclude SARS-CoV-2 infection. In patients with clinical symptoms and other tests that are consistent with SARS-CoV-2 infection, negative results should be treated as presumptive negative and a new specimen should be tested with alternative PCR molecular test. Invalid: Please collect a new specimen for repeat patient testing if clinically indicated. Lab Interpretation Normal (test code = 19029-9) [facility]
[2022-03-18] MEDS ORDERED: KETOROLAC 30 MG/ML INJ ONE (11:38)
--- NOTE | 2022-03-18 12:10 | ER ---
Nurse's Notes [facility] Name: Dari Miguel Age: 71 yrs Sex: Female : 1950 Arrival Date: 03/18/2022 Time: 10:01 Bed 11 Private MD: Diagnosis: Sciatica, left side Presentation: 03/18 10:38 Chief complaint: Patient states: left leg pain since Tuesday night , has had it before iw and the doctor told her it was sciatic nerve pain, pain starts from her hip and goes down leg , has appt this week but pain is too bad. Coronavirus screen: At this time, the client does not indicate any symptoms associated with coronavirus-19. Ebola Screen: Patient negative for fever greater than or equal to 101.5 degrees Fahrenheit, and additional compatible Ebola Virus Disease symptoms Patient denies exposure to infectious person. Patient denies travel to an Ebola-affected area in the 21 days before illness onset. No symptoms or risks identified at this time. Initial Sepsis Screen: Does the patient meet any 2 criteria? No. Patient's initial sepsis screen is negative. Does the patient have a suspected source of infection? No. Patient's initial sepsis screen is negative. Risk Assessment: Do you want to hurt yourself or someone else? Patient reports no desire to harm self or others. Onset of symptoms was March 15, 2022. 10:38 Method Of Arrival: Ambulatory iw 10:38 Acuity: ANISHA 4 iw Historical: - Allergies: 10:41 Peanut; iw 10:41 PECANS; iw - PMHx: 10:41 acid reflux; Anxiety; Hyperlipidemia; Hypertension; iw Vital Signs: 10:38 BP 158 / 74; Pulse 71; Resp 16; Temp 98.9; Pulse Ox 100% on R/A; iw ED Course: 10:01 Patient arrived in ED. as 10:41 Triage completed. iw 10:41 Arm band placed on. iw 10:43 [facility] 10:43 Rene Lenz MD is Attending Physician. 7 11:28 Mila Mccullough, RN is Primary Nurse. iw Administered Medications: 11:38 Not Given (Physician Discretion): Orphenadrine 60 mg IM once [facility] 11:38 Drug: Ketorolac 30 mg Route: IM; Site: left deltoid; ld1 11:48 Follow up: Response: No adverse reaction iw 11:57 Drug: Flexeril (cyclobenzaprine) 10 mg Route: PO; ld1 12:15 Follow up: Response: No adverse reaction iw 12:39 Drug: Dexamethasone 10 mg Route: IM; Site: right deltoid; iw 12:50 Follow up: Response: No adverse reaction iw Outcome: 12:10 Discharge ordered by jh7 12:39 Patient left the ED. iw Signatures: Nichol Reddy Irene, RN RN iw Siria Palacio RN RN ld1 Jeanette Goodman, MANAGER UTILITIES MANAGER UTILITIES 7
--- NOTE | 2022-03-18 12:11 | EDPHYS ---
Physician Documentation [facility] Name: Dari Miguel Age: 71 yrs Sex: Female : 1950 Arrival Date: 03/18/2022 Time: 10:01 Bed 11 Private MD: ED Physician Rene Lenz HPI: 03/18 10:45 This 71 yrs old Female presents to ER via Ambulatory with complaints of Leg jh7 Pain. 10:45 The patient presents with pain, that is chronic. jh7 11:46 Patient reports left buttock pain radiating down left lower extremity since Tuesday jh7 night. The patient has a history of sciatica, and has an appointment with her doctor next week. She states that the pain was too bad and she would just like a shot to relieve her pain. Denies any trauma, or any changes to her pain.. Historical: - Allergies: 10:41 Peanut; iw 10:41 PECANS; iw - PMHx: 10:41 acid reflux; Anxiety; Hyperlipidemia; Hypertension; iw ROS: 11:46 Constitutional: Negative for fever, chills, and weight loss, Neck: Negative for injury, jh7 pain, and swelling, Cardiovascular: Negative for chest pain, palpitations, and edema, Respiratory: Negative for shortness of breath, cough, wheezing, and pleuritic chest pain, Abdomen/GI: Negative for abdominal pain, nausea, vomiting, diarrhea, and constipation. 11:46 Back: Negative for injury and pain. 11:46 Back: Positive for 11:46 MS/extremity: Positive for pain, Negative for injury or acute deformity, contusion, tingling. 11:46 All other systems are negative. Exam: 11:52 Constitutional: This is a well developed, well nourished patient who is awake, alert, jh7 and in no acute distress. Cardiovascular: Regular rate and rhythm with a normal S1 and S2. No gallops, murmurs, or rubs. Normal PMI, no JVD. No pulse deficits. Respiratory: Lungs have equal breath sounds bilaterally, clear to auscultation and percussion. No rales, rhonchi or wheezes noted. No increased work of breathing, no retractions or nasal flaring. Abdomen/GI: Soft, non-tender, with normal bowel sounds. No distension or tympany. No guarding or rebound. No evidence of tenderness throughout. Back: No spinal tenderness. No costovertebral tenderness. Full range of motion. Skin: Warm, dry with normal turgor. Normal color with no rashes, no lesions, and no evidence of cellulitis. Neuro: Awake and alert, GCS 15, oriented to person, place, time, and situation. Motor strength 5/5 in all extremities. Sensory grossly intact. Normal gait. 11:52 Musculoskeletal/extremity: ROM: intact in all extremities, Circulation is intact in all extremities. Sensation intact. Left buttock pain that radiates down left lower extremity. Pain is elicited with movement. No tenderness to palpation, bruising, swelling, or any signs of injury.. Vital Signs: 10:38 BP 158 / 74; Pulse 71; Resp 16; Temp 98.9; Pulse Ox 100% on R/A; iw MDM: 10:43 Patient medically screened. [facility] 12:40 Differential diagnosis: sciatica. Data reviewed: vital signs, nurses notes. Data [facility] interpreted: Pulse oximetry: is 100 %. Interpretation: normal. Counseling: I had a detailed discussion with the patient and/or guardian regarding: the historical points, exam findings, and any diagnostic results supporting the discharge/admit diagnosis. Counseling: I had a detailed discussion with the patient and/or guardian regarding: to return to the emergency department if symptoms worsen or persist or if there are any questions or concerns that arise at home. Response to treatment: the patient's symptoms have mildly improved after treatment. ED course: Patient's pain mildly responded to Toradol and Flexeril. She asked if she could have 1 more shot to help with her pain. She was given Decadron, and her pain significantly improved. The patient remained stable throughout her ER visit, and was advised to follow-up with her PCP for further care. If her pain returns, worsens, she develops any new concerning symptoms, she is to return to the ER for further eval. The patient understood the plan of care.. Administered Medications: 11:38 Not Given (Physician Discretion): Orphenadrine 60 mg IM once 7 11:38 Drug: Ketorolac 30 mg Route: IM; Site: left deltoid; ld1 11:48 Follow up: Response: No adverse reaction iw 11:57 Drug: Flexeril (cyclobenzaprine) 10 mg Route: PO; ld1 12:15 Follow up: Response: No adverse reaction iw 12:39 Drug: Dexamethasone 10 mg Route: IM; Site: right deltoid; iw 12:50 Follow up: Response: No adverse reaction iw Disposition Summary: 03/18/22 12:10 Discharge Ordered Location: Home [facility] Problem: new [facility] Symptoms: have improved [facility] Condition: Stable 7 Diagnosis - Sciatica, left side jh7 Followup: [facility] - With: Private Physician - When: 2 - 3 days - Reason: Recheck today's complaints Discharge Instructions: - Discharge Summary Sheet [facility] - Sciatica [facility] - Sciatica, Slfa-jn-Dchn [facility] Forms: - Medication Reconciliation Form [facility] - Thank You Letter [facility] - Antibiotic Education [facility] - Prescription Opioid Use [facility] Prescriptions: - Medrol (Sebastián) 4 mg Oral Tablets, Dose Pack - take 1 tablet by ORAL route as directed - follow package instructions; 1 [facility] packet; Refills: 0, Product Selection Permitted Signatures: Mila Mccullough RN RN Siria Palacio RN RN ld1 Jeanette Goodman FNP FNP [facility]
[2022-03-18 12:56] VITALS: BP 158/74; TEMP 98.9; O2SAT 100
== END 2022-03-18 12:39 | disposition home or self-care (01) ==
LOC: ER 09:58
DX: M54.32 Sciatica, left side (principal); I10 Essential (primary) hypertension; Z91.010 Allergy to peanuts; Z91.018 Allergy to other foods
CPT/HCPCS: 96372; 99282

== ENCOUNTER 2023-05-30 08:30 | Day surgery (SDC) | payer OTHER ==
[2023-05-25 12:40] LABS: Absolute Lymphocytes (CBC) 1.6 K/uL (0.7-4.9); Hematocrit 41.1 % (36.0-45.0); Lymphocytes % 27.4 % (15.3-44.8); MCV 93.4 fL (80-100); MPV 7.8 fL (7.6-11.3)
[2023-05-25 12:47] LABS: Protime INR 1.01
--- NOTE | 2023-05-25 12:58 | RAD REPORT ---
EXAM DESCRIPTION: RAD - Chest Pa And Lat (2 Views) - 05/25/2023 12:52 pm CLINICAL HISTORY: PREPROCEDURE SCREENING Chest pain. COMPARISON: Chest Single View dated 08/17/2020; Chest Pa And Lat (2 Views) dated 03/23/2018 TECHNIQUE: PA and lateral views of the chest were obtained. FINDINGS: The lungs are hyperexpanded compatible with COPD. The heart is upper limit of normal in si ze. No fracture or aggressive bony process. IMPRESSION: COPD without acute process identified. The USPSTF recommends annual screening for lung cancer with low-dose CT (LDCT) in adults aged 50 to 80 years who have a 20 pack-year smoking history and currently smoke or have quit within the past 15 years.
--- NOTE | 2023-05-25 19:15 | EKG ---
Test Date: 2023-05-25 Test Time: 12:37:29 [employer] Production Technician: KELSIE MEASUREMENT RESULTS: Intervals: Rate: 62 LA: 174 QRSD: 88 QT: 446 QTc: 452 Coolin: P: 73 LA: 174 QRS: 65 T: 76 INTERPRETIVE STATEMENTS: Normal sinus rhythm Normal ECG Compared to ECG 08/17/2020 12:26:48 Sinus arrhythmia no longer present Electronically Signed On 05-25-23 19:15:19 CDT by Travis Coello
[2023-05-30] MEDS ORDERED: NA CHLORIDE 0.9% 500 ML ONE (09:02)
[2023-05-30] MEDS ORDERED: HEPA 1000U/500MLS 2,000 UNIT/1,000 ML BAG IV ONE (11:03)
[2023-05-30] MEDS ORDERED: FENTANYL CITR 100 MCG/2 ML ONE (11:04)
[2023-05-30] MEDS ORDERED: ASPIRIN 325 MG TAB ONE (11:04)
[2023-05-30] MEDS ORDERED: VERAPAMIL HCL 10 MG/4 ML VIAL IV ONE (11:04)
[2023-05-30] MEDS ORDERED: MIDAZOLAM HCL 2 MG/2 ML INJ ONE ×2 (11:04→13:05)
[2023-05-30] MEDS ORDERED: HEPARIN 5000 UNIT/ML 1 ML VIAL ONE (11:04)
[2023-05-30] MEDS ORDERED: CLOPIDOGREL 75 MG TABLET ONE (11:04)
[2023-05-30] MEDS ORDERED: ATROPINE SULF 1 MG/10 ML SYR IV ONE (11:05)
[2023-05-30] MEDS ORDERED: TICAGRELOR 90 MG TABLET PO ONE (11:05)
[2023-05-30] MEDS ORDERED: HEPARIN 10,000 UNIT/10 ML VIAL IV ONE (11:05)
--- NOTE | 2023-05-30 14:02 | OP ---
Date of Procedure: 05/30/2023 Surgeon: NELLIE CAGLE Procedures Performed: 1.Selective coronary angiogram. 2.Left heart catheterization. Indication: Unstable angina. Access: 1.Right radial artery 6-Australian closed with TR band. 2.Right femoral artery 6-Australian closed with 6-Australian Angio-Seal. Complications: None. Bleeding: Less than 20 mL. Anesthesia: Total sedation time was 45 minutes. Used fentanyl and Versed. Description Of Procedure: After risks, benefits, alternatives were explained, the patient agreed to procedure and signed informed consent. The patient was brought into the cardiac catheterization [facility], prepped and draped in the usual sterile fashion. Then, I accessed the right radial artery us ing pediatric micropuncture kit, placed 6-Australian Slender sheath, took 5-Australian Satsop 4.0 catheter int o the aortic root, engaged the RCA, took standard views, I could not engage the left main exchanging for many catheters, then I started to go through the groin access. The groin was prepped using lidoc james. The local anesthetic was applied and then using micropuncture and ultrasound guidance, I acces sed right femoral artery using micropuncture kit and placed a 6-Australian [place] sheath and took a 6-F rench JL3 catheter into the aortic root, engaged left main, took standard views and then removed the catheter, and the JR4 was advanced over the wire into the LV, measured LVEDP, pullback did not record any gradient. All catheters were removed. Sheath was removed. A 6-Australian Angio-Seal was used for closure of the femoral access. TR band was used for closure of radial access. The patient was sent to recovery in stable condition. Findings: 1.Left main is normal. 2.LAD; proximal multiple tandem lesions ranging between 30% and 40%, mid to distal appears normal. Normal diagonal branches. 3.Left circumflex; very large and normal. 4.RCA; moderate size with an ostial 40%, otherwise no disease. 5.Elevated LVEDP at 90 mmHg. Conclusion: 1.Mild nonobstructive coronary artery disease. 2.Elevated LVEDP. Recommendation: Medical management. /KERRY Voice ID: [id number] Report ID: [id number]
[2023-05-30 15:30] VITALS: BP 143/56; O2SAT 93
== END 2023-05-30 15:53 | disposition home or self-care (01) ==
LOC: CCL 08:30
PROVIDERS: ATTEND Internal Medicine
DX: I25.110 Atherosclerotic heart disease of native coronary artery with unstable angina pectoris (principal); I10 Essential (primary) hypertension; E78.2 Mixed hyperlipidemia; Z01.810 Encounter for preprocedural cardiovascular examination; Z79.899 Other long term (current) drug therapy; Z91.018 Allergy to other foods; Z82.49 Family history of ischemic heart disease and other diseases of the circulatory system
CPT/HCPCS: 93005; 85025; 80048; 36415; 85610; 85730; 71046; 93458; 76937; C1893; Q9966; C1760; G0269; J1644; J2250 ×2; J3010; J7040; J0461

== ENCOUNTER 2023-06-06 16:02 | Emergency (ER) | payer OTHER ==
--- OUTSIDE RECORDS SUMMARY | 2023-06-06 16:05 | XMS REPORT | Continuity of Care Document ---
:1950 Author Organization [facility] t Address [address] [place] [address] [address] [place] [address] Care Team Providers Name Role Phone JENNIE ESQUEDA Primary Care Physician Unavailable JENA JOSEPH Attending Clinician Unavailable DELORIS SCHILLING Attending Clinician Unavailable RADIOLOGY Attending Clinician Unavailable Deloris Schilling MD Attending Clinician Only, Adc Test Attending Clinician Unavailable JENA JOSEPH Admitting Clinician Unavailable DELORIS SCHILLING Admitting Clinician Unavailable Deloris Schilling MD Admitting Clinician Payers Payer Name Policy Type Policy Number Effective Date Expiration Date [facility] [id number] 2021 [facility] 00:00:00 PPO [employer] MEDICARE [id number] 2018 00:00:00 Problems Condition Condition Condition Status Onset Resolution Last Treating Co mments Source Name Details Category Date Date Treatment Clinician Date No known No known Disease Unive rs active active ity of problems problems [facility] Allergies, Adverse Reactions, Alerts Allergy Allergy Status Severity Reaction(s) Onset Inactive Treating Comm ents Source Name Type Date Date Clinician Tree Propensi Active Swelling 2020-0 Univer s Nuts ty to 6-23 ity of adverse 00:00: [place] reaction 00 Medical [facility] TREE Food Active Swelling 2020-0 Univers NUTS 6-23 ity of 00:00: [place] [address] [place] [address] Social History Social Habit Start Date Stop Date Quantity Comments Source Sex Assigned At Uni versity of [facility] Exposure to SARS-CoV-2 Not sure Un iversity of [place] (event) Medical Branch Smoking Status Start Date Stop Date Source Never smoker [facility] Medications Ordered Filled Start Stop Current Ordering Indication Dosage Frequency Signature Comments Components Source Medication Medication Date Date Medication? Clinician (SIG) Name Name omeprazole 2020-0 Yes 40mg Take 40 mg U nivers 40 mg 6-25 by mouth ity of capsule 17:24: daily. [place] [address] Medical Branch furosemide 2020-0 Yes 20mg Take 20 mg U nivers 20 mg 6-25 by mouth ity of tablet 17:24: daily. [place] [address] Medical Branch metoprolol 2020-0 Yes 1{tbl} Take 1 Uni vers succinate 6-25 tablet by ity o f XL 25 mg 24 17:24: mouth [place] hr tablet 56 daily. Medical Branch atorvastati 2020-0 Yes 20mg Take 20 mg Univers n 20 mg 6-25 by mouth ity of tablet 17:24: at [place] [address] bedtime. Medical Branch clopidogreL 2020-0 Yes 75mg Take 75 mg Univers 75 mg 6-25 by mouth ity of tablet 17:24: daily. [place] [address] Medical Branch ALPRAZolam 2020-0 Yes .25mg Take 0.25 U nivers (XANAX) 6-25 mg by ity of 0.25 mg 17:24: mouth [place] tablet 56 daily. Medical Branch diphenhydrA 2020-0 Yes 25mg Take 25 mg Univers MINE 6-25 by mouth ity of (BENADRYL) 17:24: every 6 [place] 25 mg 56 (six) Medical capsule hours as Branch needed for Allergies. olopatadine 2019-0 Yes 1[drp] Place 1 U nivers (PAZEO) 0.7 6-25 Drop in ity o f % Drop 17:24: each eye [place] 56 as needed Medical (allergies Branch ). water for 2020-0 Yes PRN, Univers irrigation 6-25 Starting ity o f irrigation 14:24: Meri [place] solution 00 04/24/20 at Medic al 0924, Branch Until Discontinu ed, Routine, Intra-op simethicone 2020-0 Yes PRN, Univer s (GAS RELIEF 6-25 Starting ity of (SIMETHICON 14:24: Meri [place] E)) 40 00 6/20 at Medical mg/0.6 mL 0924, Branch drops Until Discontinu ed, Routine, Intra-op lactated 2020-0 2020- No 1000mL at 20 Unive rs ringers IV 6-25 06-25 mL/hr, ity of infusion 12:45: 12:37 1,000 mL, Miguel as 1,000 mL 00 :00 IV Medical Infusion, Branch ONCE, 1 dose, Meri 04/24/20 at 0745, Routine, DSU Pre-op clopidogreL 2020-0 Yes 75mg Take 75 mg Univers 75 mg 6-23 by mouth ity of tablet 19:13: daily. [place] [address] Medical Branch ALPRAZolam 2020-0 Yes .25mg Take [...] o f % Drop 19:13: each eye [place] 39 as needed Medical (allergies Branch ). clopidogreL 2020-0 Yes 75mg Take 75 mg Univers 75 mg 6-23 by mouth ity of tablet 19:13: daily. [place] [address] Medical Branch ALPRAZolam 2020-0 Yes .25mg Take [...] o f % Drop 19:13: each eye [place] 39 as needed Medical (allergies Branch ). atorvastati 2020-0 Yes 20mg Take 20 mg Univers n 20 mg 6-23 by mouth ity of tablet 19:13: at [place] [address] bedtime. Medical Branch omeprazole 2020-0 Yes 40mg Take 40 mg U nivers 40 mg 6-23 by mouth ity of capsule 19:13: daily. [place] [address] Medical Branch furosemide 2019-0 Yes 20mg Take 20 mg U nivers 20 mg 6-23 by mouth ity of tablet 19:13: daily. [address] Branch metoprolol 2020-0 Yes 1{tbl} Take 1 Uni vers succinate 6-23 tablet by ity o f XL 25 mg 24 19:13: mouth [place] hr tablet 38 daily. Medical Branch atorvastati 2019-0 Yes 20mg Take 20 mg Univers n 20 mg 6-23 by mouth ity of tablet 19:13: at [place] [address] bedtime. Medical Branch omeprazole 2019-0 Yes 40mg Take 40 mg U nivers 40 mg 6-23 by mouth ity of capsule 19:13: daily. [address] furosemide 2019-0 Yes 20mg Take 20 mg U nivers 20 mg 6-23 by mouth ity of tablet 19:13: daily. [address] metoprolol 2019- Yes 1{tbl} Take 1 Uni vers succinate 6-23 tablet by ity o f XL 25 mg 24 19:13: mouth [place] hr tablet 38 daily. Medical [place] Vital Signs Vital Name Observation Time Observation Value Comments Source Systolic blood 2020-04-24 15:05:00 145 mm[Hg] Univer [facility] Diastolic blood 2020-04-24 15:05:00 49 mm[Hg] Unive [facility] Heart rate 2020-04-24 15:05:00 70 /min [facility] Body temperature 2020-04-24 15:05:00 36.94 Basia [facility] Respiratory rate 2020-04-24 15:05:00 23 /min [facility] Oxygen saturation in 2020-04-24 15:05:00 97 /min [facility] Arterial blood by [facility] Pulse oximetry Branch Body height 2020-04-22 19:00:00 152.4 cm [facility] Body weight 2020-04-22 19:00:00 88.905 kg [facility] BMI 2020-04-22 19:00:00 38.28 kg/m2 [facility] Systolic blood 2020-04-24 15:05:00 145 mm[Hg] [facility] Diastolic blood 2020-04-24 15:05:00 49 mm[Hg] Unive rsity of pressure [facility] Heart rate 2020-04-24 15:05:00 70 /min [facility] Body temperature 2020-04-24 15:05:00 36.94 Basia [facility] Respiratory rate 2020-04-24 15:05:00 23 /min [facility] Oxygen saturation in 2020-04-24 15:05:00 97 /min [facility] Arterial blood by [facility] Pulse oximetry [place] Body height 2020-04-22 19:00:00 152.4 cm [facility] Body weight 2020-04-22 19:00:00 88.905 kg [facility] BMI 2020-04-22 19:00:00 38.28 kg/m2 [facility] Procedures Procedure Date / Time Performing Clinician Source Performed EGD (ENDO) [facility]-04-[facility] NOW 2020-04-23 18:32:00 Deloris Schilling [facility] RAPID TESTING) [facility] Encounters Start End Encounter Admission Attending Care Care Encounter Source Date/Time Date/Time Type Type Clinicians Facility Department ID 2021-09-01 Outpatient R OPAL, [facility] OPH [id number] Univers 05:23:58 [facility] 2021-08-28 Outpatient R LON [facility] HU [id number] Univers 02:40:20 DELORIS Borja [facility] 2021-12-04 2021-12-04 Outpatient R RADIOLOGY [facility] [id number] Univers 00:00:00 00:00:00 [facility] 2021-08-18 2021-08-18 Outpatient R OPAL [facility] [id number] Univers 11:45:00 11:45:00 [facility] 2020-04-24 2020-04-24 [facility] [id number] Univers 07:23:00 10:37:00 Encounter e, Nizar C [place] [id number] ity of [place] 4.2.7.2.686 [facility] Surgical [id number] Med ical Center 071 [place] 2020-04-24 2020-04-24 [facility] [id number] 07:23:00 10:37:00 Encounter ftio Deloris Ortiz [place] [id number] [place] 4.2.7.2.686 Surgical [id number] [place] [address] 2020-04-23 2020-04-23 Outpatient R [facility] [id number] Univers 13:45:00 13:45:00 DELORIS Borja o f [facility] 2020-04-23 2020-04-23 Laboratory Only, [facility] Test [facility] [id number] [facility] 13:23:58 13:38:58 Only Deloris Schilling 350.1.1 3.10 ity of [place] 4.2.7.2.686 [facility] s [place] [id number] [place] [address] Branch 2020-04-23 2020-04-23 Laboratory Only, [facility] [id number] 13:23:58 13:38:58 Only Test [place] [id number] [place] 4.2.7.2.686 [place] [id number] Results Test Description Test Time Test Comments Results Result Comments Source CBC W/AUTO DIFF WITH PLATELETS 2022-02-04 08:35:24 Test Item Value Reference Range Interpretation Comme nts WBC (test code = 1001) 5.0 K/UL 3.5-11.0 RBC (test code = 1002) 4.34 M/UL 3.80-5.40 HEMOGLOBIN (test code = 1003) 13.0 G/DL 11.5-15.5 HEMATOCRIT (test code = 1004) 38.4 % 34.0-45.0 MCV (test code = 1005) 88.5 fL [...] PLATELET COUNT (test code = 234 K/UL [phone]) ABSOLUTE NEUTROPHILS (test 3.54 K/UL 1.50-7.50 code = 1066) ABSOLUTE LYMPHOCYTES (test 0.90 K/UL 1.00-4.00 L code = 1067) ABSOLUTE MONOCYTES (test code 0.48 K/UL 0.20-1.00 = 1068) ABSOLUTE EOSINOPHILS (test 0.03 K/UL 0.00-0.50 code = 1040) ABSOLUTE BASOPHILS (test code 0.02 K/UL 0.00-0.20 = 1069) ABS IMMATURE GRANULOCYTES 0.01 K/UL 0.00-0.10 (test code = 1020) ABS NUCLEATED RBCS (test code 0.00 K/UL 0.00-0.11 = 37716) COMPREHENSIVE METABOLIC [id number] 06:57:11 Test Item Value Reference Range Interpretation Comments GLUCOSE (test code = 92 MG/DL 70-99 2216) BUN (test code = 10 MG/DL 8-23 2207) CREATININE (test 0.63 MG/DL 0.60-1.30 code = 2214) eGFR (2020 CKD-EPI) 94 >60 (test code = 64015) ML/MIN/1.73 CALC BUN/CREAT (test 16 RATIO 6-28 code = 2235) SODIUM (test code = 139 MEQ/L 793-672 9032) POTASSIUM (test code 3.5 MEQ/L 3.5-5.4 = 2228) CHLORIDE (test code 101 MEQ/L 95-107 = 2215) CARBON DIOXIDE (test 25 MEQ/L 19-31 code = 2206) CALCIUM (test code = 9.1 MG/DL 8.5-10.5 2208) PROTEIN, TOTAL (test 6.7 G/DL 6.1-8.3 code = 222) ALBUMIN (test code = 4.1 G/DL 3.5-5.2 2200) CALC GLOBULIN (test 2.6 G/DL 1.9-3.7 code = 2240) CALC A/G RATIO (test 1.6 RATIO 1.0-2.6 code = 223) BILIRUBIN, TOTAL 0.7 MG/DL See_Comment [Automated message] (test code = 220) The syste m which generated this result transmitted ref erence range: <=1.2. T he reference range was not used to int erpret this result as normal/abnormal . ALKALINE PHOSPHATASE 111 U/L 40-142 (test code = 2203) AST (test code = 27 U/L 9-40 2217) ALT (test code = 19 U/L 5-40 UNLESS OTH ERWISE 2218) INDICATED, ALL TESTING PERFORM ED ATCLINICAL PATH [facility]LOGY LABORATORIES, [place]. [address] [place] [id number] [place] [address] DIRECTOR: LAWRENCE GLORIA M.D. CLIA NUMBER [id number] CAP ACCREDITATION N O. [id number] LIPID [id number] 03:34:36 Test Item Value Reference Range Interpretation Comments CHOLESTEROL (test 162 MG/DL <200 code = 2210) TRIGLYCERIDES (test 129 MG/DL <150 code = 2232) HDL CHOLESTEROL (test 43 MG/DL >39 code = 2220) CALC LDL CHOL (test 96 MG/DL <100 NOTE: C ALCULATED LDL code = 2237) IS BASED ON NIMO-HUGO METHOD WHICHINCLUDES ADJUSTABLE TRIGLYCERIDE:VL DL CHOLESTEROL RAT IO.THIS FACTOR VARIES B Y MEASURED TRIGLY CERIDE AND NON-HDLCHOL ESTEROL CONCENTRATIONS WITH INCREASED CALCU LATED LDL SEENIN HIGH ER TRIGLYCERIDE OR LOWER NON-HDL SPECIME NS. FOR MOREINFORMATION , SEE CLIENT ANNOUNCE MENT AT [email or web address] RISK RATIO LDL/HDL 2.23 RATIO <3.22 (test code = 2238) COMPREHENSIVE METABOLIC [id number] 03:34:36 Test Item Value Reference Range Interpretation Comments GLUCOSE (test code = 98 MG/DL 70-99 2216) BUN (test code = 11 MG/DL 8-23 2207) CREATININE (test 0.52 MG/DL 0.60-1.30 L EFFECTIVE code = 2214) 10/12/2021, [facility] HAS IMPLEMENTED THE NKF-ASN RECOMME NDED KD-EPI EGF R REFIT CALCULATI ON THAT DOES NOT I NCLUDE A COEFFICIENT FORRACE. FOR MO RE INFORMATION, SE E ANNOUNCEMENT [email or web address] eGFR (2020 CKD-EPI) 98 >60 (test code = 57514) ML/MIN/1.73 CALC BUN/CREAT (test 21 RATIO 6-28 code = 2235) SODIUM (test code = 142 MEQ/L 494-220 4448) POTASSIUM (test code 3.8 MEQ/L 3.5-5.4 = 2227) CHLORIDE (test code 105 MEQ/L 95-107 = 2214) CARBON DIOXIDE (test 27 MEQ/L 19-31 code = 2206) CALCIUM (test code = 8.9 MG/DL 8.5-10.5 2208) PROTEIN, TOTAL (test 6.4 G/DL 6.1-8.3 code = 222) ALBUMIN (test code = 4.0 G/DL 3.5-5.2 [...] PHOSPHATASE 123 U/L 40-142 (test code = 220) AST (test code = 17 U/L 9-40 2217) ALT (test code = 15 U/L 5-40 UNLESS OTH ERWISE 2218) INDICATED, ALL TESTING PERFORM ED ATCLINICAL PATH [facility] LAB[facility], [place]. [address] [place] [address] [facility] DIRECTOR: LAWRENCE GLORIA M.D. IA NUMBER [id number] CAP ACCREDITATION N O. [id number] COVID-19 (ID NOW RAPID TESTING)2020-04-23 19:24:00 Test Item Value Reference Range Interpretation Comments SARS-CoV-2 Rapid ID NOW Not Detected Not Detected (test code = 18705-9) NIRMAL (test code = NIRMAL) ID NOW COVID-19 Assay is an isothermal nucleic acid amplification test intended for the qualitative detection of nucleic acid from SARS-CoV-2 viral RNA in nasopharyngeal ([employer]) specimens. It is used under Emergency Use [...] indicated. Lab Interpretation Normal (test code = 00225-5) [facility]
[2023-06-06] MEDS ORDERED: NA CHLORIDE 0.9% 250 ML ONE (16:55)
[2023-06-06 17:04] LABS: Absolute Lymphocytes (CBC) 1.6 K/uL (0.7-4.9); Hematocrit 39.4 % (36.0-45.0); Lymphocytes % 26.3 % (15.3-44.8); MCV 93.6 fL (80-100); MPV 7.9 fL (7.6-11.3); Platelets 235 thou/uL (152-406); RBC Red Blood Cell Count 4.21 M/uL (3.86-4.86)
[2023-06-06 17:07] LABS: SARS-CoV-2 Antigen Rapid Res Negative (Negative)
[2023-06-06 17:11] LABS: Protime INR 0.98
[2023-06-06 17:22] LABS: Albumin 3.6 g/dL (3.4-5.0); Bilirubin Total 0.5 mg/dL (0.2-1.0); Potassium 3.5 mEq/L (3.5-5.1); Protein, Total 7.2 g/dL (6.4-8.2)
[2023-06-06 17:31] LABS: Troponin High Sensitivity 6.5 pg/mL (<58.9)
--- NOTE | 2023-06-06 18:10 | RAD REPORT ---
EXAM DESCRIPTION: CT - Chest Abdomen Pelvis W Cont - 06/06/2023 5:56 pm CLINICAL HISTORY: Chest and abdominal pain. Right femoral catheterization 1 week ago COMPARISON: 2019 TECHNIQUE: Computed axial tomography of the chest, abdomen and pelvis was obtained. 100 cc Isovue-30 0 was administered intravenously. Oral contrast was not requested. This limits evaluation of bowel. All CT scans are performed using dose optimization technique as appropriate and may include automated exposure control or mA/KV adjustment according to patient size. FINDINGS: The lungs are clear No mediastinal or hilar lymphadenopathy. No pleural effusion. No pericardial effusion. Liver, spleen, pancreas, adrenals and kidneys are unremarkable Cholecystectomy. Hysterectomy. No adnexal mass. No evidence of diverticulitis No right groin hematoma Sigmoid diverticulosis IMPRESSION: No acute abnormality is displayed
--- NOTE | 2023-06-06 18:11 | RAD REPORT ---
EXAM DESCRIPTION: [place] Single View06/06/2023 4:59 pm CLINICAL HISTORY: fever COMPARISON: April 2023 FINDINGS: The lungs appear clear of acute infiltrate. The heart is normal size IMPRESSION: No acute abnormalities displayed
[2023-06-06 19:59] LABS: Urine Bilirubin NEGATIVE (Negative); Urine Blood Negative (Negative); Urine Clarity Clear (Clear); Urine Color Colorless (Yellow); Urine Glucose NEGATIVE (Negative); Urine Protein NEGATIVE (Negative); Urine Urobilinogen Normal (Normal)
[2023-06-06 20:02] LABS: Specific Gravity > 1.030 (1.005-1.030)
--- NOTE | 2023-06-06 20:20 | ER ---
Nurse's Notes [facility] Name: Dari Miguel Age: 73 yrs Sex: Female : 1950 Arrival Date: 06/06/2023 Time: 16:02 Bed 2 Private MD: Diagnosis: Other fatigue;Abdominal pain, unspecified;Essential (primary) hypertension Presentation: 06/06 16:25 Chief complaint: Patient states: Dizziness and chills onset Tuesday. Pt states that cm10 she had a heart cath done on Tuesday and her symptoms started Tuesday. Pt was sent over by Dr. Coello. Pt also reports headache. Coronavirus screen: Vaccine status: Patient reports receiving the 2nd dose of the covid vaccine. Ebola Screen: No symptoms or risks identified at this time. Initial Sepsis Screen: Does the patient meet any 2 criteria? No. Patient's initial sepsis screen is negative. Does the patient have a suspected source of infection? No. Patient's initial sepsis screen is negative. Risk Assessment: Do you want to hurt yourself or someone else? Patient reports no desire to harm self or others. Onset of symptoms was June 06, 2023. 16:25 Method Of Arrival: Ambulatory 10 16:25 Acuity: ANISHA 2 cm10 16:27 Chief complaint:. cm10 Triage Assessment: 20:28 General: Appears in no apparent distress. Behavior is calm, cooperative. Pain: Denies rv pain. Historical: - Allergies: 16:27 Peanut; cm10 16:27 PECANS; cm10 - PMHx: 16:27 acid reflux; Anxiety; Hyperlipidemia; Hypertension; cm10 - Immunization history:: Adult Immunizations unknown. - Social history:: Smoking status: unknown. - Family history:: not pertinent. - Hospitalizations: : No recent hospitalization is reported. Screenin:28 [facility] ED Fall Risk Assessment (Adult) History of falling in the last 3 months, rv including since admission No falls in past 3 months (0 pts) Confusion or Disorientation No (0 pts) Intoxicated or Sedated No (0 pts) Impaired Gait No (0 pts) Mobility Assist Device Used No (0 pt) Altered Elimination No (0 pt) Score/Fall Risk Level 0 - 2 = Low Risk Oriented to surroundings, Maintained a safe environment, Educated pt \T\ family on fall prevention, incl call for assistance when getting out of bed, Assessed \T\ reinforced patient's understanding of fall precautions, Provided non-skid footwear, Hourly rounding (assess needs \T\ fall precautionary measures) done, Used ambulatory aids as needed (educated on \T\ assisted with), Used gait belt as appropriate. Abuse screen: Denies threats or abuse. Denies injuries from another. Nutritional screening: No deficits noted. Tuberculosis screening: No symptoms or risk factors identified. Assessment: 17:05 Reassessment: Patient appears in no apparent distress at this time. Patient and/or iw family updated on plan of care and expected duration. Pain level reassessed. Patient is alert, oriented x 3, equal unlabored respirations, skin warm/dry/pink. 19:55 Reassessment: Patient appears in no apparent distress at this time. Patient and/or jb4 family updated on plan of care and expected duration. Pain level reassessed. Patient is alert, oriented x 3, equal unlabored respirations, skin warm/dry/pink. Vital Signs: 16:25 BP 238 / 91; Pulse 74; Resp 16; Temp 99(O); Pulse Ox 98% ; Weight 44.45 kg; Height 5 cm10 ft. 0 in. ; Pain 5/10; 18:17 BP 137 / 51; Pulse 68; Resp 16; Pulse Ox 97% on R/A; iw 19:55 BP 137 / 60; Pulse 70; Resp 16; Pulse Ox 100% on R/A; jb4 16:25 Body Mass Index 19.14 (44.45 kg, 152.4 cm) cm10 16:25 Pain Scale: Adult cm10 ED Course: 16:03 Patient arrived in ED. rg4 16:27 Triage completed. cm10 16:28 Arm band placed on Patient placed in an exam room, on a stretcher. cm10 16:30 Fco Hinojosa MD is Attending Physician. rn 16:33 Mila Mccullough, BENIGNO is Primary Nurse. iw 16:40 Inserted saline lock: 20 gauge in right antecubital area, using aseptic technique. iw Blood collected. 17:01 Chest Single View XRAY In Process Unspecified. EDMS 17:58 CT Chest, Abdomen, Pelvis - W/Contrast In Process Unspecified. EDMS 18:08 Attending Physician role handed off by Fco Hinojosa MD ms3 18:08 Jaret Coelho DO is Attending Physician. ms3 20:19 Travis Coello MD is Referral Physician. ms3 20:28 Patient has correct armband on for positive identification. Provided Education on: rv DIZZINESS. Client placed on continuous cardiac and pulse oximetry monitoring. NIBP monitoring applied. potline monitor on. 20:28 No provider procedures requiring assistance completed. IV discontinued, intact, rv bleeding controlled, No redness/swelling at site. Pressure dressing applied. Administered Medications: 16:56 Drug: NS 0.9% IV 250 ml Route: IV; Rate: 1 bolus; Site: right antecubital; aa5 20:29 Follow up: IV Status: Completed infusion rv Medication: 20:29 VIS not applicable for this client. rv Outcome: 20:20 Discharge ordered by . ms3 20:29 Discharged to home ambulatory. rv 20:29 Condition: improved 20:29 Discharge instructions given to patient, Instructed on discharge instructions, follow up and referral plans. Demonstrated understanding of instructions, follow-up care. 20:30 Patient left the ED. rv Signatures: Dispatcher [employer] EDMS Mila Mccullough, RN RN Fco Shay MD MD rn Calderon, Audri, RN RN aa5 Victoria Guzmán 4 Armando Cassidy RN RN jb4 Jefferson Estevez RN RN rv Jaret Coelho DO DO ms3 Nelly Reddy, RN RN cm10 Corrections: (The following items were deleted from the chart) 16:27 16:25 Chief complaint: Patient states: Dizziness and chills onset Tuesday. Pt states cm10 that she had a heart cath done on Tuesday and her symptoms started Tuesday. Pt was sent over by Dr. Coello. cm10
--- NOTE | 2023-06-06 20:20 | EDPHYS ---
Physician Documentation [facility] Name: Drai Miguel Age: 73 yrs Sex: Female : 1950 Arrival Date: 06/06/2023 Time: 16:02 Bed 2 Private MD: ED Physician Jaret Coelho HPI: 06/06 16:39 This 73 yrs old Female presents to ER via Ambulatory with complaints of Sent rn By Oumou, Dizziness. 16:39 The patient presents with dizziness, feeling faint, generalized weakness, rn lightheadedness. Onset: The symptoms/episode began/occurred yesterday. Modifying factors: The symptoms are alleviated by lying down, the symptoms are aggravated by standing up, changing position. Associated signs and symptoms: Pertinent positives: abdominal pain, Pertinent negatives: chest pain, confusion. Severity of symptoms: At their worst the symptoms were moderate in the emergency department the symptoms have improved. The patient has not experienced similar symptoms in the past. The patient has been recently seen by a physician:. Sent by Dr. Coello for dizziness, had heart cath last week, did not require stent, no medication changed. Reports 2 days after cath began with subjective fever, chills, generalized weakness and fatigue. No chest pain. + right sided abd pain. . Historical: - Allergies: 16:27 Peanut; cm10 16:27 PECANS; cm10 - PMHx: 16:27 acid reflux; Anxiety; Hyperlipidemia; Hypertension; cm10 - Immunization history:: Adult Immunizations unknown. - Social history:: Smoking status: unknown. - Family history:: not pertinent. - Hospitalizations: : No recent hospitalization is reported. ROS: 16:39 Constitutional: Negative for fever, chills, and weight loss, Cardiovascular: Negative rn for chest pain, palpitations, and edema, Respiratory: Negative for shortness of breath, cough, wheezing, and pleuritic chest pain, Abdomen/GI: + right abd pain Back: Negative for injury and pain, MS/Extremity: Negative for injury and deformity, Skin: Negative for injury, rash, and discoloration, Neuro: + generalized weakness, negative for headache. Exam: 16:39 Constitutional: This is a well developed, well nourished patient who is awake, alert, rn and in no acute distress. Head/Face: Normocephalic, atraumatic. ENT: dry MM Cardiovascular: Regular rate and rhythm. No pulse deficits. Respiratory: No increased work of breathing, no retractions or nasal flaring. Abdomen/GI: Soft, mild RLQ tenderness, no ecchymosis or discoloration Skin: Warm, dry MS/ Extremity: Pulses equal, no cyanosis. No right inguinal or groin swelling/tenderness. Neuro: Awake and alert, GCS 15, oriented to person, place, time, and situation. Cranial nerves II-XII grossly intact. Motor strength 5/5 in all extremities. Sensory grossly intact. 16:44 ECG was reviewed by the Attending Physician. rn Vital Signs: 16:25 BP 238 / 91; Pulse 74; Resp 16; Temp 99(O); Pulse Ox 98% ; Weight 44.45 kg; Height 5 cm10 ft. 0 in. ; Pain 5/10; 18:17 BP 137 / 51; Pulse 68; Resp 16; Pulse Ox 97% on R/A; iw 19:55 BP 137 / 60; Pulse 70; Resp 16; Pulse Ox 100% on R/A; jb4 16:25 Body Mass Index 19.14 (44.45 kg, 152.4 cm) cm10 16:25 Pain Scale: Adult cm10 MDM: 16:30 Patient medically screened. rn 18:08 Transition of care: Care assumed from Fco Hinojosa MD. ms3 20:21 Differential diagnosis: generalized weakness, idiopathic dizziness, Diverticulitis vs ms3 abdominal pain. Data reviewed: vital signs, nurses notes, lab test result(s), radiologic studies, and as a result, I will discharge patient. Care significantly affected by the following chronic conditions: Hypertension, HLD. Counseling: I had a detailed discussion with the patient and/or guardian regarding: the historical points, exam findings, and any diagnostic results supporting the discharge/admit diagnosis, lab results, radiology results, the need for outpatient follow up, to return to the emergency department if symptoms worsen or persist or if there are any questions or concerns that arise at home. Response to treatment: the patient's symptoms have markedly improved after treatment, and as a result, I will discharge patient. Special discussion: I discussed with the patient/guardian in detail that at this point there is no indication for admission to the hospital. It is understood, however, that if the symptoms persist or worsen the patient needs to return immediately for re-evaluation. 06/06 16:39 Order name: Blood Culture Adult (2) rn 06/06 16:39 Order name: CBC with Diff; Complete Time: 17:17 rn 06/06 16:39 Order name: CMP; Complete Time: 17:32 rn 06/06 16:39 Order name: Lactate w/ 2H reflex if indic.; Complete Time: 17:32 rn 06/06 16:39 Order name: Protime (+inr); Complete Time: 17:17 rn 06/06 16:39 Order name: Ptt, Activated; Complete Time: 17:17 rn 06/06 16:39 Order name: Urinalysis w/ reflexes; Complete Time: 20:10 rn 06/06 16:39 Order name: SARS RAPID; Complete Time: 17:17 rn 06/06 16:39 Order name: Flu; Complete Time: 17:32 rn 06/06 16:44 Order name: Troponin High Sensitivity; Complete Time: 17:32 rn 06/06 16:44 Order name: BNP; Complete Time: 17:32 rn 06/06 16:39 Order name: Chest Single View XRAY; Complete Time: 18:16 rn 06/06 16:39 Order name: CT Chest, Abdomen, Pelvis - W/Contrast; Complete Time: 18:16 rn 06/06 16:39 Order name: EKG; Complete Time: 16:39 rn 06/06 16:39 Order name: Accucheck; Complete Time: 17:44 rn 06/06 16:39 Order name: Cardiac monitoring; Complete Time: 16:42 rn 06/06 16:39 Order name: EKG - Nurse/Tech; Complete Time: 16:42 rn 06/06 16:39 Order name: IV Saline Lock - Large Bore; Complete Time: 16:57 rn 06/06 16:39 Order name: Labs collected and sent; Complete Time: 16:57 rn 06/06 16:39 Order name: O2 Per Protocol; Complete Time: 16:42 rn 06/06 16:39 Order name: O2 Sat Monitoring; Complete Time: 16:42 rn 06/06 16:39 Order name: Vital Signs; Complete Time: 16:42 rn EC:44 Rate is 71 beats/min. Rhythm is regular. QRS [place] is Normal. VT interval is normal. QRS rn interval is normal. QT interval is normal. No Q waves. T waves are Normal. No ST changes noted. Clinical impression: Normal ECG. Interpreted by me. Administered Medications: 16:56 Drug: NS 0.9% IV 250 ml Route: IV; Rate: 1 bolus; Site: right antecubital; aa5 20:29 Follow up: IV Status: Completed infusion rv Disposition Summary: 06/06/23 20:20 Discharge Ordered Location: Home ms3 Condition: Stable ms3 Diagnosis - Other fatigue ms3 - Abdominal pain, unspecified ms3 - Essential (primary) hypertension ms3 Followup: ms3 - With: Travis Coello MD - When: 2 - 3 days - Reason: Recheck today's complaints Discharge Instructions: - Discharge Summary Sheet ms3 - Abdominal Pain, Adult ms3 - Hypertension, Adult ms3 Forms: - Medication Reconciliation Form ms3 - Thank You Letter ms3 - Antibiotic Education ms3 - Prescription Opioid Use ms3 - Patient Portal Instructions ms3 Signatures: Dispatcher [employer] EDMS Fco Hinojosa MD MD rn Calderon, Audri, RN RN aa5 Jaret Coelho DO DO ms3 Nelly Reddy RN RN cm10 Jefferson Estevez RN rv Corrections: (The following items were deleted from the chart) 17:03 16:39 Constitutional: This is a well developed, well nourished patient who is awake, rn alert, and in no acute distress. Head/Face: Normocephalic, atraumatic. ENT: dry MM Cardiovascular: Regular rate and rhythm. No pulse deficits. Respiratory: No increased work of breathing, no retractions or nasal flaring. Abdomen/GI: Soft, mild RLQ tenderness, no ecchymosis or discoloration Skin: Warm, dry MS/ Extremity: Pulses equal, no cyanosis. Neuro: Awake and alert, GCS 15, oriented to person, place, time, and situation. Cranial nerves II-XII grossly intact. Motor strength 5/5 in all extremities. Sensory grossly intact. rn
[2023-06-06 20:47] VITALS: TEMP 99
[2023-06-06 20:57] VITALS: BP 137/60; O2SAT 100
--- NOTE | 2023-06-08 18:15 | EKG ---
Test Date: 2023-06-06 Test Time: 16:40:24 Butter Maker: WEN MEASUREMENT RESULTS: Intervals: Rate: 71 AL: 172 QRSD: 90 QT: 430 QTc: 467 [place]: P: 70 AL: 172 QRS: 58 T: 64 INTERPRETIVE STATEMENTS: Normal sinus rhythm Normal ECG Compared to ECG 05/25/2023 12:37:29 No significant changes Electronically Signed On 06-08-23 18:11:57 CDT by Travis Coello
== END 2023-06-06 20:30 | disposition home or self-care (01) ==
LOC: ER 16:02
DX: R53.83 Other fatigue (principal); R10.31 Right lower quadrant pain; I10 Essential (primary) hypertension; R53.1 Weakness; Z98.890 Other specified postprocedural states; Z91.010 Allergy to peanuts; Z91.018 Allergy to other foods; Z20.822 Contact with and (suspected) exposure to COVID-19
CPT/HCPCS: 96365; 93005; 87040 ×2; 85025; 36415; 85610; 83605; 85730; 81003; 84484; 80053; 83880; 87804 ×2; 71260; 74177; 71045; 99285; 96366; 87811; Q9967; J7050

== ENCOUNTER 2024-01-03 11:42 | Day surgery (SDC) | payer OTHER ==
[2023-12-29 10:19] LABS: Absolute Basophils 0.1 K/uL (0-0.5); Absolute Eosinophils 0.1 K/uL (0-0.5); Eosinophils % 1.1 % (0-4.4); Hematocrit 37.6 % (36.0-45.0); Hemoglobin 12.7 g/dL (12.0-15.0); Lymphocytes % 13.8 % (15.3-44.8); MPV 8.5 fL (7.6-11.3); Platelets 227 thou/uL (152-406); RBC Red Blood Cell Count 4.14 M/uL (3.86-4.86)
[2023-12-29 10:29] LABS: Protime INR 1.03
[2023-12-29 10:42] LABS: Anion Gap 6.5 mEq/L (5.0-15.0); Potassium 4.5 mEq/L (3.5-5.1)
--- NOTE | 2023-12-29 11:40 | RAD REPORT ---
EXAM DESCRIPTION: RAD - Chest Pa And Lat (2 Views) - 12/29/2023 9:46 am CLINICAL HISTORY: Pre op pending heart catheterization. Hypertension COMPARISON: Chest Single View dated 06/06/2023; Chest Pa And Lat (2 Views) dated 05/25/2023; Chest Sing le View dated 08/17/2020; Chest Pa And Lat (2 Views) dated 03/23/2018 TECHNIQUE: PA and lateral views of the chest were obtained. FINDINGS: The lungs are clear. Heart size is normal and central vasculature is within normal limits. No pleural effusion or pneumothorax seen. No acute bony finding noted. IMPRESSION: No acute cardiopulmonary process.
--- NOTE | 2023-12-29 15:23 | EKG ---
Test Date: 2023-12-29 Test Time: 10:21:10 Health Occupations Instructor: KATHERIN MEASUREMENT RESULTS: Intervals: Rate: 60 SD: 136 QRSD: 72 QT: 458 QTc: 458 [place]: P: 37 SD: 136 QRS: 38 T: 80 INTERPRETIVE STATEMENTS: Normal sinus rhythm Septal infarct, age undetermined Inferior injury pattern ACUTE IA Consider right ventricular involvement in acute inferior infarct Abnormal ECG Compared to ECG 06/06/2023 16:40:24 Myocardial infarct finding now present Electronically Signed On 12-29-23 15:22:30 AERIAL APPLICATOR PILOT by Travis Coello
--- NOTE | 2024-01-02 16:07 | EKG ---
Test Date: 2023-12-29 Test Time: 10:22:59 Senior Marketing Associate: KATHERIN MEASUREMENT RESULTS: Intervals: Rate: 59 ND: 128 QRSD: 84 QT: 466 QTc: 461 [place]: P: 14 ND: 128 QRS: 54 T: 64 INTERPRETIVE STATEMENTS: Sinus bradycardia Otherwise normal ECG Compared to ECG 12/29/2023 10:21:10 Sinus rhythm no longer present Myocardial infarct finding no longer present Electronically Signed On 01-02-24 16:04:48 WAITER/WAITRESS TOURIST CLASS by Travis Coello
[2024-01-03] MEDS: NA CHLORIDE 0.9% 500 ML ONE (11:45)
[2024-01-03] MEDS ORDERED: LIDOCAINE 1% 20 ML MDV ONE (12:02)
[2024-01-03] MEDS ORDERED: HEPA 1000U/500MLS 2,000 UNIT/1,000 ML BAG IV ONE (12:02)
[2024-01-03] MEDS ORDERED: MIDAZOLAM HCL 2 MG/2 ML INJ ONE ×2 (12:03→12:41)
[2024-01-03] MEDS ORDERED: ATROPINE SULF 1 MG/10 ML SYR IV ONE (12:03)
[2024-01-03] MEDS ORDERED: ASPIRIN 325 MG TAB ONE (12:03)
[2024-01-03] MEDS ORDERED: CLOPIDOGREL 75 MG TABLET ONE (12:03)
[2024-01-03] MEDS ORDERED: FENTANYL CITR 100 MCG/2 ML ONE ×2 (12:03→13:18)
[2024-01-03] MEDS ORDERED: NITROGLYCERIN/D5W 25 MG/250 ML BTL IV ONE (12:09)
[2024-01-03] MEDS ORDERED: HEPARIN 10,000 UNIT/10 ML VIAL IV ONE (12:13)
[2024-01-03] MEDS ORDERED: REGADENOSON 0.4 MG/5 ML SYR IV ONE (12:21)
[2024-01-03] MEDS ORDERED: HEPA 1000U/500MLS 1,000 UNIT/500 ML BAG IV ONE (12:58)
[2024-01-03] MEDS ORDERED: ONDANSETRON 4 MG/2 ML VIAL ONE (13:18)
--- NOTE | 2024-01-03 14:54 | OP ---
Date of Procedure: 01/03/2024 Surgeon: NELLIE CAGLE Procedure Performed: 1.Selective coronary angiogram. 2.Left heart catheterization. 3.FFR of proximal LAD was insignificant at 0.85. 4.PCI of severe ostial RCA stenosis with 3.0 x 16 mm Synergy drug-eluting stent. Indication: Unstable angina and abnormal stress test. Access: Right femoral artery, 6-Moroccan, closed with 6-Moroccan Angio-Seal. Complications: None. Bleeding: Less than 50 mL. Anesthesia: Total sedation time was 1 hour. Description Of Procedure: After risks, benefits, alternatives were explained, the patient agreed to proceed and signed informed consent. The patient was brought into the cardiac catheterization labora tory, prepped and draped in usual sterile fashion. Then, I accessed right femoral artery using micro puncture kit, ultrasound guidance, fluoroscopy, placed 6-Moroccan [place] sheath and took 6-Moroccan JL3 catheter into the aortic root, engaged left main, took standard views and exchanged for 6-Moroccan JR4 catheter, crossed the aortic valve, measured LVEDP. Pullback did not record any gradient. Then eng aged the RCA, took standard views and then gave systemic heparin to assure ACT level above 250 and th en took a 6-Moroccan 3DRC guide with side holes into the aortic root, engaged the RCA, took Runthrough wire into the RCA, placed it distally and then using a 2.5 balloon, lesion was pre-dilated successful ly and then placed 3.0 x 16 mm Synergy drug-eluting stent with excellent expansion. Then we exchang ed for 6-Moroccan JL3 guide, engaged the left main and took a Comet PressureWire into the aortic root a nd pressures were equalized and then wire was advanced into the LAD, placed distally and FFR was done using Lexiscan and lowest value was 0.85. Wire was pulled back and there was no drift. Then final angiogram was satisfactory. Removed the guide and the sheath. 6-Moroccan Angio-Seal was used for clos ure. Good hemostasis. Findings: 1.Left main: Ostial to proximal 30% to 40% stenosis with FFR negative as above. 2.LAD: Proximal 60%, mid 50% to 60%. FFR 0.85 which is negative. Diagonal branch 1 has ostial 50% stenosis. Rest of LAD is normal. 3.Left circumflex: Moderate to large size vessel. Ostial 20% stenosis. Rest of the circ appears n ormal. 4.RCA: Moderate size and dominant. Ostial 80% stenosis. Status post successful PCI as above. Dis fany RCA appears to be normal. 5.LVEDP elevated at 21 mmHg. Conclusion: 1.Severe ostial RCA stenosis, status post successful PCI as above. 2.Moderate coronary artery disease involving left main and LAD with negative FFR. 3.Elevated LVEDP. Recommendation: Aspirin, Plavix, high dose statin, and diuretics. Follow up in the office in 1-2 we eks. SR/MODL Voice ID: [id number] Report ID: [id number]
[2024-01-03 18:12] VITALS: BP 136/60; TEMP 97; O2SAT 97
== END 2024-01-03 17:00 | disposition home or self-care (01) ==
LOC: CCL 11:42
PROVIDERS: ATTEND Internal Medicine Interventional Cardiology
DX: I25.110 Atherosclerotic heart disease of native coronary artery with unstable angina pectoris (principal); I10 Essential (primary) hypertension; I48.91 Unspecified atrial fibrillation; E78.5 Hyperlipidemia, unspecified; Z79.02 Long term (current) use of antithrombotics/antiplatelets; Z79.899 Other long term (current) drug therapy; Z91.018 Allergy to other foods; Z82.49 Family history of ischemic heart disease and other diseases of the circulatory system
CPT/HCPCS: 93005 ×2; 85025; 80048; 36415; 85610; 85730; 71046; 93458; 76937; 93571; C1893; C1760; Q9967; C1725; C9600; J2785; J2001; J2250 ×2; J3010; J7040; 85347; J0461; J2405

== ENCOUNTER 2024-06-05 10:20 | Inpatient (IN) | payer OTHER ==
--- OUTSIDE RECORDS SUMMARY | 2024-06-05 10:24 | XMS REPORT | Continuity of Care Document ---
Author Name Unknown Address [address] [facility] [address] [place] [address] [facility] Address [address] [facility] [address] [place] [address] Care Team Providers Care Continuous Improvement Specialist Name Role Phone Jake ANTOINE, Ashli Primary Care Physic niles [phone] JENA JOSEPH Attending Clinician DELORIS Chowdhury Attending Clinician Jena Sharp MD Attending Clinician + [phone] Doctor Unassigned, Jolly Attending Clinician U navailable RADIOLOGY Attending Clinician Unavailable Deloris Guillermo MD Attending Clinician +- [phone] Only, Adc Test Attending Clinician Unavailable JENA JOSEPH Admitting Clinician DELORIS Chowdhury Admitting Clinician Jena Sharp MD Admitting Clinician + [phone] Deloris Guillermo MD Admitting Clinician + [phone] Payers Payer Name Policy Type Policy Number Effective Date Expirati on Date Source [facility] [id number] 2021 00:00:00 [employer] [id number] 2018 00:00:00 Problems Condition Name Condition Details Condition Category Status Onset Date Resolution Date Last Treatment Date Treating Clinician Comments Source Obesity (BMI 30-39.9) Obesity (BMI 30-39.9) Disease Active 07-28 00:00: 00 [facility] No known active problems No known active problems Disease [facility] Allergies, Adverse Reactions, Alerts Allergy Name Allergy Type Status Severity Reaction(s) Onset Date Inactive Date Treating Clinician Comments Source Tree Nuts Propensi ty to adverse reaction s Active Swelling 6 00:00: 00 [facility] TREE NUTS Food Active Swelling 6 00:00: 00 [facility] pecan nut Propensi ty to adverse reaction to drug Active 1-17 00:00: 00 Candido Ford Social History Social Habit Start Date Stop Date Quantity Comments [facility] to SARS-CoV-2 (event) Not sure [facility] History of Social function 2023-08-04 00:00:00 2023-08-04 00:00:00 [facility] Alcohol intake 2023-08-01 00:00:00 2023-08-01 00:00:00 Lifetime non-drinker (finding) [facility] Tobacco use and exposure 2023-07-28 00:00:00 2023-07-28 00:00:00 Smokeless tobacco non-user [facility] Sex Assigned At 1950 00:00:00 1950 00:00:00 [facility] Smoking Status Start Date Stop Date Source Never smoked tobacco [facility] Medications Ordered Medication Name Filled Medication Name Start Date Stop Date Current Medication? Ordering Clinician Indication Dosage Frequency Signature (SIG) Comments Components Source FUROSEMIDE 40 MG 4-22 00:00: 00 Yes Candido Ford AMIODARONE HCL 200 MG 4-11 00:00: 00 Yes Candido Ford TAKE 1 TABLET BY MOUTH ONCE DAILY IN THE MORNING 3-13 00:00: 00 Yes Candido Ford OMEPRAZOLE DR 40 MG CAPSULE 3-08 00:00: 00 Yes Candido Ford ATORVASTATI N 40 MG 2-26 00:00: 00 Yes Candido Ford CARVEDILOL 12.5 MG 2-14 00:00: 00 Yes Candido Ford AMLODIPINE BESYLATE 10 MG 12-14 00:00: 00 Yes Candido Ford TAKE 1 TABLET 3 TIMES DAILY UNTIL GONE. 12-14 00:00: 00 03-12 00:00 :00 No 500 Candido Ford TAKE 1 TABLET BY MOUTH TWICE DAILY WITH FOOD 18 00:00: 00 Yes Candido Ford NITROFURANT OIN MONO-MCR 100 MG 11-04 00:00: 00 Yes Candido Ford TAKE 1 CAPSULE TWICE DAILY. 11-04 00:00: 00 03-12 00:00 :00 No 100 Candido Ford TAKE 1 TABLET BY MOUTH ONCE DAILY NEEDED 11-03 00:00: 00 Yes Candido Ford TAKE 1 & 1/2 (ONE & ONE-HALF) TABLETS BY MOUTH ONCE DAILY 11-03 00:00: 00 Yes Candido Ford TAKE 1 TABLET BY MOUTH ONCE DAILY 2022-10 00:00: 00 Yes Candido Ford OMEPRAZOLE 40MG 2022-10 00:00: 00 Yes Candido Ford TAKE 1 CAPSULE BY MOUTH IN THE MORNING 30 MINUTES BEFORE BREAKFAST 2022-10 00:00: 00 Yes Candido Ford TAKE 1 TABLET BY MOUTH TWICE DAILY WITH FOOD 2022-10 00:00: 00 Yes Candido Ford CLOPIDOGREL 75MG 2022-10 00:00: 00 Yes Candido Ford CLOPIDOGREL 75MG 2022-10 00:00: 00 Yes [id number] Candido Ford SERTRALINE 50MG 2022-10 00:00: 00 Yes Candido Ford INJECT 0.3ML INTRAMUSCUL BETSY DIRECTED. 2022-10 00:00: 00 03-12 00:00 :00 No 303 Candido Ford EPINEPH(E)2 P 0.3MG KIT 2022-10 00:00: 00 03-12 00:00 :00 No Candido Ford TAKE 1 TABLET BY MOUTH ONCE DAILY 2022-10 020 00:00: 00 Yes Candido Ford TAKE 1 TABLET BY MOUTH ONCE DAILY NEEDED 2022-10 00:00: 00 Yes Candido Justin Ford SERTRALINE 50MG 2022-10 0-10 00:00: 00 03-12 00:00 :00 No Candido Ford neomycin-po lymyxin-dex amethasone (MAXITROL) 3.5 mg/g-10,000 unit/g-0.1 % ophthalmic ointment 2022-10 0-05 13:22: 00 08-04 13:35 :45 No PRN, Starting on Meri 08/04/23 at 0822, Until Meri 08/04/23 at 0835, Routine, Intra-op [facility] sodium chloride (NS) injection 2022-10 0-05 13:21: 00 08-04 13:35 :45 No PRN, Starting on Meri 08/04/23 at 0821, Until Meri 08/04/23 at 0835, Routine, Intra-op [facility] gentamicin injection 2022-10 0-05 13:21: 00 08-04 13:35 :45 No PRN, Starting on Meri 08/04/23 at 0821, Until Meri 08/04/23 at 0835, JOSTIN, Intra-op [facility] dexamethaso ne (DECADRON PHOSPHATE) injection 2022-10 0-05 13:21: 00 08-04 13:35 :45 No PRN, Starting on Meri 08/04/23 at 0821, Until Meri 08/04/23 at 0835, Routine, Intra-op [facility] ceFAZolin (ANCEF) injection 2022-10 0-05 13:21: 00 08-04 13:35 :45 No PRN, Starting on Meri 08/04/23 at 0821, Until Meri 08/04/23 at 0835, JOSTIN, Intra-op [facility] EPINEPHrine (PF) 1:1,000 (1 mg/mL) (ADRENALIN (PF)) injection 2022-10 0-05 13:09: 00 Yes PRN, Starting on Meri 08/04/23 at 0809, Until Discontinu ed, Routine, [facility] chondroitin sulf-sod hyaluronate (DUOVISC VISCO ELASTIC) intraocular injection 2022-10 005 13:09: 00 08-04 13:35 :45 No PRN, Starting on Meri 08/04/23 at 0809, Until Meri 08/04/23 at 0835, Routine, Intra-op [facility] balanced salt soln no.2 irrig. (BSS) ophthalmic solution 2022-10 0 13:09: 00 08-04 13:35 :45 No PRN, Starting on Meri 08/04/23 at 0809, Until Meri 08/04/23 at 0835, Routine, Intra-op [facility] water for irrigation irrigation solution 2022-10 13:07: 00 08-04 13:35 :45 No PRN, Starting on Meri 08/04/23 at 0807, Until Meri 08/04/23 at 0835, Routine, Intra-op [facility] tetracaine (PONTOCAINE ) 0.5 % ophthalmic drops 2022-10 005 13:05: 00 08-04 13:35 :45 No PRN, Starting on Meri 08/04/23 at 0805, Until Meri 08/04/23 at 0835, Routine, Intra-op [facility] eye block syringe 11 mL 2022-10 005 13:04: 00 08-04 13:35 :45 No PRN, Starting on Meri 08/04/23 at 0804, Until Meri 08/04/23 at 0835, Intra-op [facility] cyclopent 1%-tropic 1%-phenyl 2.5%-ketor 0.5% (MYDRIATIC #5) ophthalmic solution syringe 0.5 mL 2022-10 005 11:30: 00 08-04 12:00 :00 No .5mL 0.5 mL, Right Eye, ONCE, 1 dose, On Meri 08/04/23 at 0630, Routine, DSU Pre-op [facility] omeprazole 40 mg capsule 2022-10 0-05 09:04: 07 Yes 40mg Take 1 capsule by mouth in the morning. [facility] furosemide 20 mg tablet 2022-10 0 09:04: 07 Yes 20mg Take 1 tablet by mouth in the morning. [facility] metoprolol succinate XL 25 mg 24 hr tablet 2022-10 0 09:04: 07 Yes 25mg Take 1 tablet by mouth in the morning. [facility] atorvastati n 40 mg tablet 2022-10 0 09:04: 07 Yes 40mg Take 1 tablet by mouth at bedtime. [facility] clopidogreL 75 mg tablet 2022-10 0 09:04: 07 Yes 75mg Take 1 tablet by mouth in the morning. [facility] ALPRAZolam (XANAX) 0.25 mg tablet 2022-10 09:04: 07 Yes .25mg Take 1 tablet by mouth in the morning. [facility] diphenhydrA MINE (BENADRYL) 25 mg capsule 2022-10 09:04: 07 Yes 25mg Take 1 capsule by mouth every 6 (six) hours as needed for Allergies. [facility] clonazePAM 0.5 mg tablet 2022-10 09:04: 07 Yes .5mg Take 1 tablet by mouth as needed. [facility] SERTraline 25 mg tablet 2022-10 0 09:04: 07 Yes 25mg Take 1 tablet by mouth at bedtime. [facility] amiodarone 200 mg tablet 2022-10 0 09:04: 07 Yes 200mg Take 1 tablet by mouth in the morning. [facility] Olopatadine (PATADAY ONCE DAILY RELIEF) 0.2 % ophthalmic drops 2022-10 0 09:04: 07 Yes 1[drp] Place 1 Drop in each eye as needed. [facility] omeprazole 40 mg capsule 2022-10 0 12:38: 16 Yes 40mg Take 1 capsule by mouth in the morning. [facility] furosemide 20 mg tablet 2022-10 0 12:38: 16 Yes 20mg Take 1 tablet by mouth in the morning. [facility] metoprolol succinate XL 25 mg 24 hr tablet 2022-10 12:38: 16 Yes 25mg Take 1 tablet by mouth in the morning. [facility] atorvastati n 40 mg tablet 2022-10 12:38: 16 Yes 40mg Take 1 tablet by mouth at bedtime. [facility] clopidogreL 75 mg tablet 2022-10 12:38: 16 Yes 75mg Take 1 tablet by mouth in the morning. [facility] ALPRAZolam (XANAX) 0.25 mg tablet 2022-10 12:38: 16 Yes .25mg Take 1 tablet by mouth in the morning. [facility] diphenhydrA MINE (BENADRYL) 25 mg capsule 2022-10 12:38: 16 Yes 25mg Take 1 capsule by mouth every 6 (six) hours as needed for Allergies. [facility] clonazePAM 0.5 mg tablet 2022-10 12:38: 16 Yes .5mg Take 1 tablet by mouth as needed. [facility] SERTraline 25 mg tablet 2022-10 12:38: 16 Yes 25mg Take 1 tablet by mouth at bedtime. [facility] amiodarone 200 mg tablet 2022-10 12:38: 16 Yes 200mg Take 1 tablet by mouth in the morning. [facility] Olopatadine (PATADAY ONCE DAILY RELIEF) 0.2 % ophthalmic drops 2022-10 12:38: 16 Yes 1[drp] Place 1 Drop in each eye as needed. [facility] neomycin-po lymyxin-dex amethasone (MAXITROL) 3.5 mg/g-10,000 unit/g-0.1 % ophthalmic ointment 07-28 13:58: 00 07-28 14:28 :03 No PRN, Starting on Meri 07/28/23 at 0858, Until Tue07/28/23 at 0928, Routine, Intra-op [facility] sodium chloride (NS) injection 07-28 13:56: 00 Yes PRN, Starting on Tue07/28/23 at 0856, Until Discontinu ed, Routine, Intra-op [facility] gentamicin injection 07-28 13:56: 00 07-28 14:28 :03 No PRN, Starting on Meri 07/28/23 at 0856, Until Meri 07/28/23 at 0928, JOSTIN, Intra-op [facility] dexamethaso ne (DECADRON PHOSPHATE) injection 07-28 13:56: 00 07-28 14:28 :03 No PRN, Starting on Meri 07/28/23 at 0856, Until Meri 07/28/23 at 0928, Routine, Intra-op [facility] ceFAZolin (ANCEF) injection 07-28 13:56: 00 07-28 14:28 :03 No PRN, Starting on Meri 07/28/23 at 0856, Until Meri 07/28/23 at 0928, JOSTIN, Intra-op [facility] EPINEPHrine (PF) 1:1,000 (1 mg/mL) (ADRENALIN (PF)) injection 07-28 13:39: 00 07-28 14:28 :03 No PRN, Starting on Meri 07/28/23 at 0839, Until Meri 07/28/23 at 0928, Routine, Intra-op [facility] chondroitin sulf-sod hyaluronate (DUOVISC VISCO ELASTIC) intraocular injection 07-28 13:39: 00 07-28 14:28 :03 No PRN, Starting on Mrei 07/28/23 at 0839, Until Meri 07/28/23 at 0928, Routine, Intra-op [facility] balanced salt soln no.2 irrig. (BSS) ophthalmic solution 07-28 13:39: 00 07-28 14:28 :03 No PRN, Starting on Meri 07/28/23 at 0839, Until Meri 07/28/23 at 0928, Routine, Intra-op [facility] water for irrigation irrigation solution 07-28 13:37: 00 07-28 14:28 :03 No PRN, Starting on Tue07/28/23 at 0837, Until Meri 07/28/23 at 09, Routine, Intra-op [facility] tetracaine (PONTOCAINE ) 0.5 % ophthalmic drops 07-28 13:35: 00 07-28 14:28 :03 No PRN, Starting on Tue07/28/23 at 0835, Until Meri 07/28/23 at 09, Routine, Intra-op [facility] eye block syringe 11 mL 07-28 13:34: 00 07-28 14:28 :03 No PRN, Starting on Tue07/28/23 at 0834, Until Meri 07/28/23 at 09, Intra-op [facility] cyclopent 1%-tropic 1%-phenyl 2.5%-ketor 0.5% (MYDRIATIC #5) ophthalmic solution syringe 0.5 mL 07-28 12:45: 00 07-28 12:41 :00 No .5mL 0.5 mL, Left Eye, ONCE, 1 dose, On Meri 07/28/23 at 0745, Routine, DSU Pre-op [facility] lactated ringers IV infusion 1,000 mL 07-28 12:45: 00 07-28 12:55 :00 No 1000mL at 42 mL/hr, 1,000 mL, IV Infusion, ONCE, 1 dose, On Meri 07/28/23 at 0745, Routine, DSU Pre-op [facility] omeprazole 40 mg capsule 07-28 09:29: 17 Yes 40mg Take 1 capsule by mouth in the morning. [facility] furosemide 20 mg tablet 07-28 09:29: 17 Yes 20mg Take 1 tablet by mouth in the morning. [facility] metoprolol succinate XL 25 mg 24 hr tablet 07-28 09:29: 17 Yes 25mg Take 1 tablet by mouth in the morning. [facility] atorvastati n 20 mg tablet 07-28 09:29: 17 Yes 40mg Take 2 tablets by mouth at bedtime. [facility] clopidogreL 75 mg tablet 07-28 09:29: 17 Yes 75mg Take 1 tablet by mouth in the morning. [facility] ALPRAZolam (XANAX) 0.25 mg tablet 07-28 09:29: 17 Yes .25mg Take 1 tablet by mouth in the morning. [facility] diphenhydrA MINE (BENADRYL) 25 mg capsule 07-28 09:29: 17 Yes 25mg Take 1 capsule by mouth every 6 (six) hours as needed for Allergies. [facility] clonazePAM 0.5 mg tablet 07-28 09:29: 17 Yes .5mg Take 1 tablet by mouth as needed. [facility] SERTraline 25 mg tablet 07-28 09:29: 17 Yes 25mg Take 1 tablet by mouth at bedtime. [facility] amiodarone 200 mg tablet 07-28 09:29: 17 Yes 200mg Take 1 tablet by mouth in the morning. [facility] Olopatadine (PATADAY ONCE DAILY RELIEF) 0.2 % ophthalmic drops 07-28 09:29: 17 Yes 1[drp] Place 1 Drop in each eye as needed. [facility] olopatadine (PAZEO) 0.7 % Drop 07-28 09:00: 29 07-28 00:00 :00 No 1[drp] Place 1 Drop in each eye as needed (allergies ). [facility] PRED ACETATE 1% OP SELIN 07-19 00:00: 00 03-12 00:00 :00 No Candido Ford PROLENSA 0.07% YI 07-19 00:00: 00 03-12 00:00 :00 Judith Ford INSTILL 1 DROP INTO LEFT EYE THE NIGHT BEFORE AND THE MORNING OF SURGERY THEN THREE TIMES DAILY FOR 1 WEEK 07-19 00:00: 00 03-12 00:00 :00 No Candido Ford OMEPRAZOLE 40MG 0 9-14 00:00: 00 Yes [id number] Candido Ford TAKE 1 TABLET BY MOUTH ONCE DAILY AT DINNER - 00:00: 00 03-12 00:00 :00 No Candido Ford TAKE 1 TABLET BY MOUTH ONCE DAILY NEEDED 0 - 00:00: 00 03-12 00:00 :00 No Candido Ford ATORVASTATI N 40MG 8- 00:00: 00 03-12 00:00 :00 No [id number] Candido Ford FUROSEMIDE 20MG -24 00:00: 00 03-12 00:00 :00 No Candido Ford AMIODARONE 200MG 7-24 00:00: 00 03-12 00:00 :00 No Candido Justin Ford AZITHROMYCI N 250MG - 00:00: 00 03-12 00:00 :00 No Candido Ford TAKE 10 ML EVERY 12 HOURS. -18 00:00: 00 03-12 00:00 :00 No [id number] Candido Ford TAKE 2 TABLETS ON DAY 1 THEN TAKE 1 TABLET A DAY FOR 4 DAYS. -18 00:00: 00 03-12 00:00 :00 No 250 Candido Ford FUROSEMIDE 20MG 2022-0 4-27 00:00: 00 03-12 00:00 :00 No Candido Justin Ford AMIODARONE 200MG 2022-0 4-27 00:00: 00 03-12 00:00 :00 No [id number] Candido Justin Ford AMOXICILLIN 500MG 2022-0 3-22 00:00: 00 03-12 00:00 :00 No [id number] Candido Justin Ford CLOPIDOGREL 75MG 2022-0 3-14 00:00: 00 03-12 00:00 :00 No [id number] Candido Justin Ford AMOXICILLIN 500MG 2022-0 2-15 00:00: 00 03-12 00:00 :00 No Candido Justin Ford ATORVASTATI N 40MG 2023-0 2-14 00:00: 00 03-12 00:00 :00 No [id number] Candido Ford ATORVASTATI N 40MG 11-30 00:00: 00 03-12 00:00 :00 No Candido Ford BUSPIRONE 10MG 30 00:00: 00 03-12 00:00 :00 No [id number] Candido Ford TAKE 1 TABLET BY MOUTH ONCE DAILY 11-29 00:00: 00 03-12 00:00 :00 No Candido Ford TAKE 2 TABLETS ON DAY 1 THEN TAKE 1 TABLET A DAY FOR 4 DAYS. -24 00:00: 00 03-12 00:00 :00 No 250 Candido Ford FLUOROMETHO L 0.1% OP SELIN 2021-10 00:00: 00 03-12 00:00 :00 No 100 Candido Ford OMEPRAZOLE 40MG 2021-10 2- 00:00: 00 Yes Candido Ford TAKE 1 CAPSULE BY MOUTH IN THE MORNING 30 MINUTES BEFORE BREAKFAST 2021-10 00:00: 00 Yes Candido Ford CLOPIDOGREL 75MG 2021-10 00:00: 00 Yes Candido Ford INSTILL 1 DROP INTO EACH EYE TWICE DAILY 2021-10- 00:00: 00 03-12 00:00 :00 No Candido Ford AMIODARONE 200MG 2021-10- 00:00: 00 Yes Candido Ford TAKE 1 TABLET BY MOUTH ONCE DAILY 2021-10- 00:00: 00 Yes Candido Justin Ford FUROSEMIDE 20MG 2021-10 00:00: 00 03-12 00:00 :00 No [id number] Candido Justin Ford TIZANIDINE 2MG 2021-10 0- 00:00: 00 03-12 00:00 :00 No 2000 Candido Justin Ford OMEPRAZOLE 40MG 07-13 00:00: 00 Yes [id number] Candido Justin Ford TAKE 1 TABLET BY MOUTH NIGHTLY -17 00:00: 00 Yes 10 Candido Justin Ford TAKE 1 TABLET BY MOUTH ONCE DAILY 2022-0 8-14 00:00: 00 Yes 40 Candidotayler Ford FUROSEMIDE 20MG 2021-0 8-14 00:00: 00 03-12 00:00 :00 No [id number] Candido F Logan Dose Unknown 2021-0 8-10 00:00: 00 Yes Candido F Logan &lt 2022-0 8-10 00:00: 00 Yes 20 Candido F Logan &lt 2022-0 8-10 00:00: 00 Yes 75 Candido F Logan &lt 2022-0 8-10 00:00: 00 Yes 5 Candido F Logan &lt 2022-0 8-10 00:00: 00 Yes 4 Candido F Logan Dose Unknown 2021-0 8-10 00:00: 00 Yes Candido Ford amiodarone 200 mg tablet 2021-0 8-10 00:00: 00 Yes 1mg Candido F Logan &lt 2022-0 8-10 00:00: 00 Yes 10 Candido F Logan &lt 2022-0 8-10 00:00: 00 Yes Candido F Logan &lt 2022-0 7-27 00:00: 00 Yes 4 Candido F Logan &lt 2022-0 7-27 00:00: 00 Yes 75 Candido Ford TAKE 1 CAPSULE BY MOUTH ONCE DAILY FOR 5 DAYS 2021-0 7-27 00:00: 00 Yes 60 Candido Ford &lt 2022-0 7-27 00:00: 00 Yes 200 Candido Ford buspirone 10 mg tablet 2021-0 7-18 00:00: 00 Yes 1mg Candido Ford &lt 2022-0 7-11 00:00: 00 Yes 4 Candido Ford BUSPIRONE HYDROCHLORI DE 10MG 2021-0 7-11 00:00: 00 03-12 00:00 :00 No [id number] Candido Ford TAKE BY MOUTH DIRECTED ON INSIDE OF PACKAGE 2021-0 6-28 00:00: 00 Yes Candido F Logan Dose Unknown 2021-0 6-28 00:00: 00 Yes Candido F Logan &lt 2022-0 6-27 00:00: 00 Yes Candido F Logan &lt 2022-0 6-27 00:00: 00 Yes Candido Ford CLOPIDOGREL 75MG 2-0 6-16 00:00: 00 Yes [id number] Candido F Logan METHYLPREDN ISOLONE DOSE P 4MG DPAK 0 5-19 00:00: 00 Yes 4000 Candido Ford diphenoxyla te-atropine 2.5 mg-0.025 mg tablet 0 4-06 00:00: 00 Yes 1mg Candido Ford ondansetron HCl 4 mg tablet 0 4-06 00:00: 00 Yes 1mg Candido Ford TIZANIDINE HCL 2MG 0 3-19 00:00: 00 Yes 2000 Candido Ford ATORVASTATI N CALCIUM 40MG 0 3-17 00:00: 00 Yes [id number] Candido Ford Flonase Allergy Relief 50 mcg/actuati on nasal spray,suspe nsion 3-04 00:00: 00 Yes 2mcg/ac tuation Candido Ford Dose Unknown 3-04 00:00: 00 Yes Candido Ford Dose Unknown 0 3-04 00:00: 00 Yes Candido Ford Dose Unknown 0 3-04 00:00: 00 Yes Candido Ford Dose Unknown 0 3-04 00:00: 00 Yes Candido Ford Dose Unknown 0 3-04 00:00: 00 Yes Candido Ford USE 2 SPRAY(S) IN EACH NOSTRIL ONCE DAILY 0 3-04 00:00: 00 Yes Candido Ford buspirone 10 mg tablet 0 2-22 00:00: 00 Yes 1mg Candido Ford TIZANIDINE HCL 2MG 0 2-17 00:00: 00 Yes 1999 Candido Ford TAKE 1 TABLET BY MOUTH ONCE DAILY 0 2-15 00:00: 00 Yes Candido Ford clopidogrel 75 mg tablet 0 2-11 00:00: 00 Yes 1mg Candido Ford metoprolol tartrate 25 mg tablet 0 2-11 00:00: 00 Yes 1mg Candido Ford furosemide 20 mg tablet 0 2-11 00:00: 00 Yes 1mg Candido Ford atorvastati n 40 mg tablet 0 2-11 00:00: 00 Yes 1mg Candido Ford ibuprofen 400 mg tablet 2022-0 2-11 00:00: 00 Yes 1mg Candido Ford omeprazole 40 mg capsule,del ayed release 2 00:00: 00 Yes 1mg Candido Ford buspirone 10 mg tablet 2020-10 2 00:00: 00 Yes 1mg Candido Ford alprazolam 0.5 mg tablet 06-10 00:00: 00 Yes 1mg Candido Ford alprazolam 0.5 mg tablet 06-09 00:00: 00 Yes 1mg Candido Ford diclofenac potassium 50 mg tablet 02-02 00:00: 00 Yes 1mg Candido Ford EpiPen 2-Sebastián 0.3 mg/0.3 mL injection, auto-inject or 11-04 00:00: 00 Yes 1mg/0.3 mL Candido Ford duloxetine 60 mg capsule,del ayed release 1 00:00: 00 Yes 1mg Candido Ford Lasix 20 mg tablet 06-16 00:00: 00 Yes 1mg Candido Ford omeprazole 20 mg capsule,del ayed release 05-08 00:00: 00 Yes 1mg Candido Ford duloxetine 30 mg capsule,del ayed release 05-08 00:00: 00 Yes 1mg Candido Ford omeprazole 40 mg capsule 04-24 17:24: 56 Yes 40mg Take 40 mg by mouth daily. [facility] furosemide 20 mg tablet 04-24 17:24: 56 Yes 20mg Take 20 mg by mouth daily. [facility] metoprolol succinate XL 25 mg 24 hr tablet 04-24 17:24: 56 Yes 1{tbl} Take 1 tablet by mouth daily. [facility] atorvastati n 20 mg tablet 04-24 17:24: 56 Yes 20mg Take 20 mg by mouth at bedtime. [facility] clopidogreL 75 mg tablet 04-24 17:24: 56 Yes 75mg Take 75 mg by mouth daily. [facility] ALPRAZolam (XANAX) 0.25 mg tablet 04-24 17:24: 56 Yes .25mg Take 0.25 mg by mouth daily. [facility] diphenhydrA MINE (BENADRYL) 25 mg capsule 04-24 17:24: 56 Yes 25mg Take 25 mg by mouth every 6 (six) hours as needed for Allergies. [facility] olopatadine (PAZEO) 0.7 % Drop 04-24 17:24: 56 Yes 1[drp] Place 1 Drop in each eye as needed (allergies ). [facility] water for irrigation irrigation solution 04-24 14:24: 00 Yes PRN, Starting Meri 04/24/20 at 0924, Until Discontinu ed, Routine, Intra-op [facility] simethicone (GAS RELIEF (SIMETHICON E)) 40 mg/0.6 mL drops 04-24 14:24: 00 Yes PRN, Starting Meri 04/24/20 at 0924, Until Discontinu ed, Routine, Intra-op [facility] lactated ringers IV infusion 1,000 mL 04-24 12:45: 00 04-24 12:37 :00 No 1000mL at 20 mL/hr, 1,000 mL, IV Infusion, ONCE, 1 dose, Meri 04/24/20 at 0745, Routine, DSU Pre-op [facility] clopidogreL 75 mg tablet 04-22 19:13: 39 Yes 75mg Take 75 mg by mouth daily. [facility] ALPRAZolam (XANAX) 0.25 mg tablet 04-22 19:13: 39 Yes .25mg Take 0.25 mg by mouth daily. [facility] diphenhydrA MINE (BENADRYL) 25 mg capsule 04-22 19:13: 39 Yes 25mg Take 25 mg by mouth every 6 (six) hours as needed for Allergies. [facility] olopatadine (PAZEO) 0.7 % Drop 04-22 19:13: 39 Yes 1[drp] Place 1 Drop in each eye as needed (allergies ). [facility] atorvastati n 20 mg tablet 04-22 19:13: 38 Yes 20mg Take 20 mg by mouth at bedtime. [facility] omeprazole 40 mg capsule 04-22 19:13: 38 Yes 40mg Take 40 mg by mouth daily. [facility] furosemide 20 mg tablet 04-22 19:13: 38 Yes 20mg Take 20 mg by mouth daily. [facility] metoprolol succinate XL 25 mg 24 hr tablet 04-22 19:13: 38 Yes 1{tbl} Take 1 tablet by mouth daily. [facility] famotidine 20 mg tablet 11-18 00:00: 00 Yes 1mg Candido Ford EpiPen 2-Sebastián 0.3 mg/0.3 mL injection, auto-inject or 11-16 00:00: 00 Yes 1(1.5 mL) Candido Ford Lasix 20 mg tablet 11-16 00:00: 00 Yes 1mg Candido Ford metoprolol succinate ER 25 mg tablet,exte nded release 24 hr 11-16 00:00: 00 Yes 1mg Candido Ford Plavix 75 mg tablet 11-16 00:00: 00 Yes 1mg Candido Ford Xanax 0.5 mg tablet 11-16 00:00: 00 Yes 1mg Candido Ford famotidine 20 mg tablet 11-16 00:00: 00 Yes 1mg Candido Ford atorvastati n 40 mg tablet 11-16 00:00: 00 Yes 1mg Candido Ford Immunizations Ordered Immunization Name Filled Immunization Name Date Status Comments Source influenza, seasonal vaccine, quadrivalent, adjuvanted, .5mL dose, preservative-free influenza, seasonal vaccine, quadrivalent, adjuvanted, .5mL dose, preservative-free 2023-09-12 00:00:00 Completed Candido Justin Logan Moderna COVID-19 Vaccine Moderna COVID-19 Vaccine 2021-10-21 00:00:00 Completed Candido Justin Logan Influenza, seasonal, inj Influenza, seasonal, inj 2021-08-28 00:00:00 Completed Candido Justin Logan Moderna COVID-19 Vaccine Moderna COVID-19 Vaccine 2021-01-06 00:00:00 Completed Candido Ford Moderna COVID-19 Vaccine Moderna COVID-19 Vaccine 2020-12-10 00:00:00 Completed Candido Ford Vital Signs Vital Name Observation Time Observation Value [facility] Heart rate 2023-08-04 13:43:00 63 /min [facility] Respiratory rate 2023-08-04 13:43:00 18 /min [facility] Oxygen saturation in Arterial blood by Pulse oximetry 2023-08-04 13:43:00 96 /min [facility] Systolic blood pressure 2023-08-04 13:42:00 171 mm[Hg] [facility] Diastolic blood pressure 2023-08-04 13:42:00 62 mm[Hg] [facility] Body temperature 2023-08-04 13:28:00 36.67 Basia [facility] Body height 2023-08-01 17:00:00 152.4 cm [facility] Body weight 2023-08-01 17:00:00 86.183 kg [facility] BMI 2023-08-01 17:00:00 37.11 kg/m2 [facility] Heart rate 2023-08-04 13:39:00 60 /min [facility] Respiratory rate 2023-08-04 13:39:00 20 /min [facility] Oxygen saturation in Arterial blood by Pulse oximetry 2023-08-04 13:39:00 97 /min [facility] Systolic blood pressure 2023-08-04 13:37:00 173 mm[Hg] [facility] Diastolic blood pressure 2023-08-04 13:37:00 53 mm[Hg] [facility] Body temperature 2023-08-04 13:28:00 36.67 Basia [facility] Body height 2023-08-01 17:00:00 152.4 cm [facility] Body weight 2023-08-01 17:00:00 86.183 kg [facility] BMI 2023-08-01 17:00:00 37.11 kg/m2 [facility] Systolic blood pressure 2023-07-28 14:15:00 193 mm[Hg] [facility] Diastolic blood pressure 2023-07-28 14:15:00 52 mm[Hg] [facility] Heart rate 2023-07-28 14:15:00 57 /min [facility] Respiratory rate 2023-07-28 14:15:00 21 /min [facility] Oxygen saturation in Arterial blood by Pulse oximetry 2023-07-28 14:15:00 97 /min [facility] Body temperature 2023-07-28 14:01:00 36.39 Basia [facility] Body height 2023-07-21 19:00:00 152.4 cm [facility] Body weight 2023-07-21 19:00:00 86.183 kg [facility] BMI 2023-07-21 19:00:00 37.11 kg/m2 [facility] Systolic blood pressure 2023-07-28 14:05:00 181 mm[Hg] [facility] Diastolic blood pressure 2023-07-28 14:05:00 70 mm[Hg] [facility] Heart rate 2023-07-28 14:05:00 58 /min [facility] Oxygen saturation in Arterial blood by Pulse oximetry 2023-07-28 14:05:00 97 /min [facility] Body temperature 2023-07-28 14:01:00 36.39 Basia [facility] Respiratory rate 2023-07-28 14:01:00 16 /min [facility] Body height 2023-07-21 19:00:00 152.4 cm [facility] Body weight 2023-07-21 19:00:00 86.183 kg [facility] BMI 2023-07-21 19:00:00 37.11 kg/m2 [facility] Systolic blood pressure 2020-04-24 15:05:00 145 mm[Hg] [facility] Diastolic blood pressure 2020-04-24 15:05:00 49 mm[Hg] [facility] Heart rate 2020-04-24 15:05:00 70 /min [facility] Body temperature 2020-04-24 15:05:00 36.94 Basia [facility] Respiratory rate 2020-04-24 15:05:00 23 /min [facility] Oxygen saturation in Arterial blood by Pulse oximetry 2020-04-24 15:05:00 97 /min [place] [facility] Body height 2020-04-22 19:00:00 152.4 cm [facility] Body weight 2020-04-22 19:00:00 88.905 kg [facility] BMI 2020-04-22 19:00:00 38.28 kg/m2 [facility] Systolic blood pressure 2020-04-24 15:05:00 145 mm[Hg] [facility] Diastolic blood pressure 2020-04-24 15:05:00 49 mm[Hg] [facility] Heart rate 2020-04-24 15:05:00 70 /min [facility] Body temperature 2020-04-24 15:05:00 36.94 Basia [facility] Respiratory rate 2020-04-24 15:05:00 23 /min [facility] Oxygen saturation in Arterial blood by Pulse oximetry 2020-04-24 15:05:00 97 /min [facility] Body height 2020-04-22 19:00:00 152.4 cm [facility] Body weight 2020-04-22 19:00:00 88.905 kg [facility] BMI 2020-04-22 19:00:00 38.28 kg/m2 [facility] BP Systolic 2024-04-11 10:56:00 123 mm[Hg] Step hen F Logan BP Diastolic 2024-04-11 10:56:00 65 mm[Hg] Aubrey phen F Logan Weight Measured 2024-04-11 10:56:00 189.80 pounds Candido F Logan Height Measured 2024-04-11 10:56:00 60.00 inches Candido F Logan Body Temperature 2024-04-11 10:56:00 97.40 degrees Candido F Logan Heart Rate 2024-04-11 10:56:00 61.00 /min Renetta en F Logan Respiratory Rate 2024-04-11 10:56:00 Candido F Logan BP Systolic 2023-12-14 11:00:00 118 mm[Hg] Step hen F Logan BP Diastolic 2023-12-14 11:00:00 72 mm[Hg] Aubrey phen F Logan Weight Measured 2023-12-14 11:00:00 189.60 pounds Candido F Logan Height Measured 2023-12-14 11:00:00 60.00 inches Candido F Logan Body Temperature 2023-12-14 11:00:00 98.10 degrees Candido F Logan Heart Rate 2023-12-14 11:00:00 68.00 /min Renetta en F Logan Respiratory Rate 2023-12-14 11:00:00 Candido F Logan BP Systolic 2023-11-04 13:58:00 156 mm[Hg] Step hen F Logan BP Diastolic 2023-11-04 13:58:00 57 mm[Hg] Aubrey phen F Logan Weight Measured 2023-11-04 13:58:00 190.60 pounds Candido F Logan Height Measured 2023-11-04 13:58:00 60.00 inches Candido F Logan Body Temperature 2023-11-04 13:58:00 Candido F Logan Heart Rate 2023-11-04 13:58:00 60.00 /min Renetta en F Logan Respiratory Rate 2023-11-04 13:58:00 Candido F Logan BP Systolic 2023-09-12 09:26:00 165 mm[Hg] Step hen F Logan BP Diastolic 2023-09-12 09:26:00 74 mm[Hg] Aubrey phen F Logan Weight Measured 2023-09-12 09:26:00 192.80 pounds Candido F Logan Height Measured 2023-09-12 09:26:00 60.00 inches Candido F Logan Body Temperature 2023-09-12 09:26:00 97.60 degrees Candido F Logan Heart Rate 2023-09-12 09:26:00 78.00 /min Renetta en F Logan Respiratory Rate 2023-09-12 09:26:00 Candido F Logan BP Systolic 2023-08-10 11:43:00 161 mm[Hg] Step hen F Logan BP Diastolic 2023-08-10 11:43:00 77 mm[Hg] Aubrey phen F Logan Weight Measured 2023-08-10 11:43:00 191.80 pounds Candido F Logan Height Measured 2023-08-10 11:43:00 60.00 inches Candido F Logan Body Temperature 2023-08-10 11:43:00 97.30 degrees Candido F Logan Heart Rate 2023-08-10 11:43:00 68.00 /min Renetta en F Logan Respiratory Rate 2023-08-10 11:43:00 Candido F Logan BP Systolic 2022-06-09 14:55:00 171 mm[Hg] Step hen F Logan BP Diastolic 2022-06-09 14:55:00 72 mm[Hg] Aubrey phen F Logan Weight Measured 2022-06-09 14:55:00 183.20 pounds Candido F Logan Height Measured 2022-06-09 14:55:00 60.00 inches Candido F Logan Body Temperature 2022-06-09 14:55:00 98.30 degrees Candido F Logan Heart Rate 2022-06-09 14:55:00 76.00 /min Renetta en F Logan Respiratory Rate 2022-06-09 14:55:00 Candido F Logan BP Systolic 2022-02-03 16:18:00 117 mm[Hg] Step hen F Logan BP Diastolic 2022-02-03 16:18:00 68 mm[Hg] Aubrey phen F Logan Weight Measured 2022-02-03 16:18:00 173.00 pounds Candido F Logan Height Measured 2022-02-03 16:18:00 60.00 inches Candido F Logan Body Temperature 2022-02-03 16:18:00 97.40 degrees Candido F Logan Heart Rate 2022-02-03 16:18:00 72.00 /min Renetta en F Logan Respiratory Rate 2022-02-03 16:18:00 Candido F Logan BP Systolic 2021-12-11 14:12:00 192 mm[Hg] Step hen F Logan BP Diastolic 2021-12-11 14:12:00 75 mm[Hg] Aubrey phen F Logan Weight Measured 2021-12-11 14:12:00 176.60 pounds Candido F Logan Height Measured 2021-12-11 14:12:00 60.00 inches Candido F Logan Body Temperature 2021-12-11 14:12:00 97.40 degrees Candido F Logan Heart Rate 2021-12-11 14:12:00 72.00 /min Renetta en F Logan Respiratory Rate 2021-12-11 14:12:00 Candido F Logan BP Systolic 2021-10-27 16:00:00 135 mm[Hg] Step hen F Logan BP Diastolic 2021-10-27 16:00:00 66 mm[Hg] Aubrey phen F Logan Weight Measured 2021-10-27 16:00:00 178.40 pounds Candido F Logan Height Measured 2021-10-27 16:00:00 60.00 inches Candido F Logan Body Temperature 2021-10-27 16:00:00 98.20 degrees Candido F Logan Heart Rate 2021-10-27 16:00:00 80.00 /min Renetta en F Logan Respiratory Rate 2021-10-27 16:00:00 Candido F Logan BP Systolic 2021-10-21 09:52:00 139 mm[Hg] Step hen F Logan BP Diastolic 2021-10-21 09:52:00 62 mm[Hg] Aubrey phen F Logan Weight Measured 2021-10-21 09:52:00 180.20 pounds Candido F Logan Height Measured 2021-10-21 09:52:00 60.00 inches Candido Ford Body Temperature 2021-10-21 09:52:00 97.40 degrees Candido F Logan Heart Rate 2021-10-21 09:52:00 78.00 /min Renetta en F Logan Respiratory Rate 2021-10-21 09:52:00 Candido Ford Procedures Procedure Date / Time Performed Performing Clinician Source PHACOEMULSIFICATION OF CATARACT WITH INTRAOCULAR LENS IMPLANT 2023-08-04 12:52:00 Jena Joseph [facility] ASSIGNMENT OF BENEFITS 2023-08-03 15:24:21 Doctor Unassigned, Jolly [facility] PHACOEMULSIFICATION OF CATARACT WITH INTRAOCULAR LENS IMPLANT 2023-07-28 13:24:00 Jena Joseph [facility] PATIENT QUESTIONNAIRE 2023-07-28 05:01:00 Doctor Unassigned, Jolly [facility] DAY SURGERY - ADC 2023-07-28 05:01:00 Doctor Unassigned, Jolly [facility] PATIENT QUESTIONNAIRE 2023-07-28 05:01:00 Doctor Unassigned, Jolly [facility] DAY SURGERY - ADC 2023-07-28 05:01:00 Doctor Unassigned, Jolly [facility] EGD (ENDO) 2020-04-24 14:05:27 Ashli Joseph [facility] COVID-19 (ID NOW RAPID TESTING) 2020-04-23 18:32:00 Deloris Guillermo [facility] Encounters Start Date/Time End Date/Time Encounter Type Admission Type Attending [facility] Care Department Encounter ID Source 2021-09-01 05:23:58 Outpatient R JENA JOSEPH [facility] OPH [id number] [facility] 2021-08-28 02:40:20 Outpatient R DELORIS IMX [facility] HU [id number] [facility] 2024-04-11 10:56:04 2024-04-11 10:56:04 Outpatient SFA SFA [id number] Candido Anderson Logan 2024-04-11 00:00:00 2024-04-11 00:00:00 Outpatient Visit SFA [id number] Candido Anderson Logan 2023-12-14 11:10:17 2023-12-14 11:10:17 Outpatient SFA SFA [id number] Candido Anderson Logan 2023-11-28 12:25:17 2023-11-28 12:25:17 Outpatient SFA SFA [id number] Candido Anderson Logan 2023-11-04 13:51:30 2023-11-04 13:51:30 Outpatient SFA SFA [id number] Candido Anderson Logan 2023-10-05 13:46:51 2023-10-05 13:46:51 Outpatient SFA SFA [id number] Candido Anderson Logan 2023-09-12 09:22:24 2023-09-12 09:22:24 Outpatient SFA SFA [id number] Candido Anderson Logan 2023-08-10 11:38:03 2023-08-10 11:38:03 Outpatient [facility] [id number] Candido Ford 2023-08-04 06:25:00 2023-08-04 09:01:00 Hospital Encounter OpalJena [facility] [place] 1.2840.114 350.1.13.10 4.2.7.2.686 [id number] [facility] 2023-08-04 06:25:00 2023-08-04 09:01:00 Outpatient R OPAL, JENA [facility] OPH [id number] [facility] 2023-08-04 08:00:00 2023-08-04 08:39:00 Surgery Opal Jena Ortiz [facility] 1.2840.114 350.1.13.10 4.2.7.2.686 [id number] [facility] 2023-08-03 00:00:00 2023-08-03 00:00:00 Orders Only Doctor Unassigned, Jolly [facility] 1.2840.114 350.1.13.10 4.2.7.2.686 [id number] [facility] 2023-07-28 07:32:00 2023-07-28 09:20:00 Outpatient R OPALJENA ZAMORA [facility] OPH [id number] [facility] 2023-07-28 07:32:00 2023-07-28 09:20:00 Hospital Encounter Opal Jena Alcantar [facility] [place] 1.2840.114 350.1.13.10 4.2.7.2.686 [id number] [facility] 2023-07-28 08:30:00 2023-07-28 09:09:00 Surgery Jena Joseph [facility] [place] 1.2840.114 350.1.13.10 4.2.7.2.686 [id number] [facility] 2021-12-04 00:00:00 2021-12-04 00:00:00 Outpatient R RADIOLOGY [facility] [id number] [facility] 2021-08-18 11:45:00 2021-08-18 11:45:00 Outpatient R JENA JOSEPH [facility] [id number] [facility] 2020-04-24 07:23:00 2020-04-24 10:37:00 Hospital Encounter AnuelpedroDeloris holcomb [facility] [id number] 350.1.13.10 4.2.7.2.686 [id number] [facility] 2020-04-24 07:23:00 2020-04-24 10:37:00 Hospital Encounter Deloris Mix [facility] 1.2840.114 350.1.13.10 4.2.7.2.686 [id number] 2020-04-23 13:45:00 2020-04-23 13:45:00 Outpatient R ANUELBJORN DELORIS Borja [facility] [id number] [facility] 2020-04-23 13:23:58 2020-04-23 13:38:58 Laboratory Only Only, Adc Test Deloris Mix [facility] [id number] 350.1.13.10 4.2.7.2.686 [id number] [facility] 2020-04-23 13:23:58 2020-04-23 13:38:58 Laboratory Only Only, Adc Test [facility] [id number] 350.1.13.10 4.2.7.2.686 [id number] Results Test Description Test Time Test Comments Results Result Co mments Source CBC W/AUTO DIFF WITH [id number] 01:47:18* Test Item Value Reference Range Interpretation Comme nts WBC (test code = 1001) 6.6 K/UL 3.5-11.0 RBC (test code = 1002) 3.97 M/UL 3.80-5.40 HEMOGLOBIN (test code = 1003) 12.2 G/DL 11.5-15.5 HEMATOCRIT (test code = 1004) 36.5 % 34.0-45.0 MCV (test code = 1005) 91.9 fL 80.0-99.0 MCH (test code = 1006) 30.7 PG 25.0-33.0 MCHC (test code = 1007) 33.4 G/DL 31.0-36.0 RDW (test code = 1038) 13.2 % 11.5-15.0 NEUTROPHILS (test code = 1008) 75.0 % LYMPHOCYTES (test code = 1010) 15.0 % MONOCYTES (test code = 1011) 7.6 % EOSINOPHILS (test code = 1012) 1.4 % BASOPHILS (test code = 1013) 0.8 % IMMATURE GRANULOCYTES (test code = 1036) 0.2 % NUCLEATED RBCS (test code = 1065) 0.0 /100 WBC'S See_Comment [Automated message] The system which generated this result transmitted reference range: 0.0. The reference range was not used to interpret this result as normal/abnormal. PLATELET COUNT (test code = 1015) 228 K/UL 130-400 ABSOLUTE NEUTROPHILS (test code = 1066) 4.98 K/UL 1.50-7.50 ABSOLUTE LYMPHOCYTES (test code = 1067) 0.99 K/UL 1.00-4.00 L ABSOLUTE MONOCYTES (test code = 1068) 0.50 K/UL 0.20-1.00 ABSOLUTE EOSINOPHILS (test code = 1040) 0.09 K/UL 0.00-0.50 ABSOLUTE BASOPHILS (test code = 1069) 0.05 K/UL 0.00-0.20 ABS IMMATURE GRANULOCYTES (test code = 1020) 0.01 K/UL 0.00-0.10 ABS NUCLEATED RBCS (test code = 45505) 0.00 K/UL 0.00-0.11 UNLESS OTHER LOREDO INDICATED, ALL TESTING PERFORMED AT [facility] [address] [place] [id number] LE[employer] MASSAGE THERAPIST: ALONZO IBARRA M.D. CLIA NUMBER [id number] [facility] [place]. [id number] COMPREHENSIVE METABOLIC [id number] 00:00:00* Test Item Value Reference Range Interpretation Comme nts GLUCOSE (test code = 2217) 89 MG/DL BUN (test code = 2208) 14 MG/DL CREATININE (test code = 2214) 0.79 MG/DL eGFR (2020 CKD-EPI) (test co de = 78843) 78 ML/MIN/1.73 CALC BUN/CREAT (test code = 2235) 18 RATIO SODIUM (test code = 2231) 142 MEQ/L POTASSIUM (test code = 2228) 3.6 MEQ/L CHLORIDE (test code = 2215) 103 MEQ/L CARBON DIOXIDE (test code = 2206) 27 MEQ/L CALCIUM (test code = 2209) 8.6 MG/DL PROTEIN, TOTAL (test code = 2229) 6.3 G/DL ALBUMIN (test code = 2201) 3.7 G/DL CALC GLOBULIN (test code = 2240) 2.6 G/DL CALC A/G RATIO (test code = 2234) 1.4 RATIO BILIRUBIN, TOTAL (test code = 2207) 0.4 MG/DL ALKALINE PHOSPHATASE (test code = 2204) 105 U/L AST (test code = 2218) 34 U/L ALT (test code = 2219) 31 U/L [facility] [id number] 00:00:00* Test Item Value Reference Range Interpretation Comme nts WBC (test code = 1001) 6.6 K/UL RBC (test code = 1002) 3.97 M/UL HEMOGLOBIN (test code = 1003) 12.2 G/DL HEMATOCRIT (test code = 1004) 36.5 % MCV (test code = 1005) 91.9 fL MCH (test code = 1006) 30.7 PG MCHC (test code = 1007) 33.4 G/DL RDW (test code = 1038) 13.2 % NEUTROPHILS (test code = 1008) 75.0 % LYMPHOCYTES (test code = 1010) 15.0 % MONOCYTES (test code = 1011) 7.6 % EOSINOPHILS (test code = 1012) 1.4 % BASOPHILS (test code = 1013) 0.8 % IMMATURE GRANULOCYTES (test code = 1036) 0.2 % NUCLEATED RBCS (test code = 1065) 0.0 /100WBC'S PLATELET COUNT (test code = 1015) 228 K/UL ABSOLUTE NEUTROPHILS (test c ode = 1066) 4.98 K/UL ABSOLUTE LYMPHOCYTES (test c ode = 1067) 0.99 K/UL ABSOLUTE MONOCYTES (test cod e = 1068) 0.50 K/UL ABSOLUTE EOSINOPHILS (test c ode = 1040) 0.09 K/UL ABSOLUTE BASOPHILS (test cod e = 1069) 0.05 K/UL ABS IMMATURE GRANULOCYTES (t est code = 1020) 0.01 K/UL ABS NUCLEATED RBCS (test cod e = 54561) 0.00 K/UL Candido FordCULTURE, [id number] 00:00:00* Test Item Value Reference Range Interpretation Comme nts CULTURE, URINE (test code = 47903) SPECIMEN NUMBER: [id number] Candido FordCOMPREHENSIVE METABOLIC [id number] 06:09:45* Test Item Value Reference Range Interpretation Comme nts GLUCOSE (test code = 2217) 83 MG/DL 70-99 BUN (test code = 2207) 17 MG/DL 8-23 CREATININE (test code = 2214) 0.72 MG/DL 0.60-1.30 eGFR (2020 CKD-EPI) (test code = 39785) 87 ML/MIN/1.73 >60 CALC BUN/CREAT (test code = 5) 24 RATIO 6-28 SODIUM (test code = 2231) 139 MEQ/L 133-146 POTASSIUM (test code = 2228) 3.9 MEQ/L 3.5-5.4 CHLORIDE (test code = 2215) 103 MEQ/L 95-107 CARBON DIOXIDE (test code = 2206) 24 MEQ/L 19-31 CALCIUM (test code = 2209) 8.9 MG/DL 8.5-10.5 PROTEIN, TOTAL (test code = 2229) 6.5 G/DL 6.1-8.3 ALBUMIN (test code = 2201) 4.3 G/DL 3.5-5.2 CALC GLOBULIN (test code = 2240) 2.2 G/DL 1.9-3.7 CALC A/G RATIO (test code = 2234) 2.0 RATIO 1.0-2.6 BILIRUBIN, TOTAL (test code = 2206) 0.3 MG/DL <=1.2 ALKALINE PHOSPHATASE (test code = 2204) 80 U/L 40-142 AST (test code = 2218) 19 U/L 9-40 ALT (test code = 2219) 18 U/L 5-40 UNLESS OTHERWISE INDICATED, ALL TESTING PERFORMED AT [facility] [address] [place] [id number] LEAD MASSAGE THERAPIST: ALONZO IBARRA M.D. CLIA NUMBER [id number] [facility] [place]. [id number] CBC W/AUTO DIFF WITH [id number] 03:51:01* Test Item Value Reference Range Interpretation Comme nts WBC (test code = 1001) 6.9 K/UL 3.5-11.0 RBC (test code = 1002) 4.27 M/UL 3.80-5.40 HEMOGLOBIN (test code = 1003) 13.8 G/DL 11.5-15.5 HEMATOCRIT (test code = 1004) 40.1 % 34.0-45.0 MCV (test code = 1005) 93.9 fL 80.0-99.0 MCH (test code = 1006) 32.3 PG 25.0-33.0 MCHC (test code = 1007) 34.4 G/DL 31.0-36.0 RDW (test code = 1038) 12.6 % 11.5-15.0 NEUTROPHILS (test code = 1008) 72.3 % LYMPHOCYTES (test code = 1010) 18.5 % MONOCYTES (test code = 1011) 7.9 % EOSINOPHILS (test code = 1012) 0.6 % BASOPHILS (test code = 1013) 0.4 % IMMATURE GRANULOCYTES (test code = 1036) 0.3 % NUCLEATED RBCS (test code = 1065) 0.0 /100 WBC'S See_Comment [Automated messa ge] The system which generated this result transmitted reference range: 0.0. The reference range was not used to interpret this result as normal/abnormal. PLATELET COUNT (test code = 1015) 253 K/UL 130-400 ABSOLUTE NEUTROPHILS (test code = 1066) 4.96 K/UL 1.50-7.50 ABSOLUTE LYMPHOCYTES (test code = 1067) 1.27 K/UL 1.00-4.00 ABSOLUTE MONOCYTES (test code = 1068) 0.54 K/UL 0.20-1.00 ABSOLUTE EOSINOPHILS (test code = 1040) 0.04 K/UL 0.00-0.50 ABSOLUTE BASOPHILS (test code = 1069) 0.03 K/UL 0.00-0.20 ABS IMMATURE GRANULOCYTES (test code = 1020) 0.02 K/UL 0.00-0.10 ABS NUCLEATED RBCS (test code = 40943) 0.00 K/UL 0.00-0.11 CBC W/AUTO [id number] 00:00:00* Test Item Value Reference Range Interpretation Comme nts WBC (test code = 1001) 6.9 K/UL RBC (test code = 1002) 4.27 M/UL HEMOGLOBIN (test code = 1003) 13.8 G/DL HEMATOCRIT (test code = 1004) 40.1 % MCV (test code = 1005) 93.9 fL MCH (test code = 1006) 32.3 PG MCHC (test code = 1007) 34.4 G/DL RDW (test code = 1038) 12.6 % NEUTROPHILS (test code = 1008) 72.3 % LYMPHOCYTES (test code = 1010) 18.5 % MONOCYTES (test code = 1011) 7.9 % EOSINOPHILS (test code = 1012) 0.6 % BASOPHILS (test code = 1013) 0.4 % IMMATURE GRANULOCYTES (test code = 1036) 0.3 % NUCLEATED RBCS (test code = 1065) 0.0 /100WBC'S PLATELET COUNT (test code = 1015) 253 K/UL ABSOLUTE NEUTROPHILS (test c ode = 1066) 4.96 K/UL ABSOLUTE LYMPHOCYTES (test c ode = 1067) 1.27 K/UL ABSOLUTE MONOCYTES (test cod e = 1068) 0.54 K/UL ABSOLUTE EOSINOPHILS (test c ode = 1040) 0.04 K/UL ABSOLUTE BASOPHILS (test cod e = 1069) 0.03 K/UL ABS IMMATURE GRANULOCYTES (t est code = 1020) 0.02 K/UL ABS NUCLEATED RBCS (test cod e = 31406) 0.00 K/UL Candido F AustinCOMPREHENSIVE METABOLIC [id number] 00:00:00* Test Item Value Reference Range Interpretation Comme nts GLUCOSE (test code = 2217) 83 MG/DL BUN (test code = 2208) 17 MG/DL CREATININE (test code = 2214) 0.72 MG/DL eGFR (2020 CKD-EPI) (test co de = 60250) 87 ML/MIN/1.73 CALC BUN/CREAT (test code = 2235) 24 RATIO SODIUM (test code = 2231) 139 MEQ/L POTASSIUM (test code = 2228) 3.9 MEQ/L CHLORIDE (test code = 2215) 103 MEQ/L CARBON DIOXIDE (test code = 2206) 24 MEQ/L CALCIUM (test code = 2209) 8.9 MG/DL PROTEIN, TOTAL (test code = 2229) 6.5 G/DL ALBUMIN (test code = 2201) 4.3 G/DL CALC GLOBULIN (test code = 2240) 2.2 G/DL CALC A/G RATIO (test code = 2234) 2.0 RATIO BILIRUBIN, TOTAL (test code = 2207) 0.3 MG/DL ALKALINE PHOSPHATASE (test code = 2204) 80 U/L AST (test code = 2218) 19 U/L ALT (test code = 2219) 18 U/L [facility]AUTO DIFF WITH [id number] 08:35:24* Test Item Value Reference Range Interpretation Comme [...] 13.0 % 11.5-15.0 NEUTROPHILS (test code = 1008) 71.1 % LYMPHOCYTES (test code = 1010) 18.1 % MONOCYTES (test code = 1011) 9.6 % EOSINOPHILS (test code = 1012) 0.6 % BASOPHILS (test code = 1013) 0.4 % IMMATURE GRANULOCYTES (test code = 1036) 0.2 % NUCLEATED RBCS (test code = 1065) 0.0 /100 WBC'S See_Comment [Automated messa ge] The system which generated this result transmitted reference range: 0.0. The reference range was not used to interpret this result as normal/abnormal. PLATELET COUNT (test code = 1015) 234 K/UL 130-400 ABSOLUTE NEUTROPHILS (test code = 1066) 3.54 K/UL 1.50-7.50 ABSOLUTE LYMPHOCYTES (test code = 1067) 0.90 K/UL 1.00-4.00 L ABSOLUTE MONOCYTES (test code = 1068) 0.48 K/UL 0.20-1.00 ABSOLUTE EOSINOPHILS (test code = 1040) 0.03 K/UL 0.00-0.50 ABSOLUTE BASOPHILS (test code = 1069) 0.02 K/UL 0.00-0.20 ABS IMMATURE GRANULOCYTES (test code = 1020) 0.01 K/UL 0.00-0.10 ABS NUCLEATED RBCS (test code = 11146) 0.00 K/UL 0.00-0.11 COMPREHENSIVE METABOLIC [id number] 06:57:11* Test Item Value Reference Range Interpretation Comme nts GLUCOSE (test code = 2217) 92 MG/DL 70-99 BUN (test code = 2207) 10 MG/DL 8-23 CREATININE (test code = 2214) 0.63 MG/DL 0.60-1.30 eGFR (2020 CKD-EPI) (test code = 34824) 94 ML/MIN/1.73 >60 CALC BUN/CREAT (test code = 223) 16 RATIO 6-28 SODIUM (test code = 223) 139 MEQ/L 133-146 POTASSIUM (test code = 2228) 3.5 MEQ/L 3.5-5.4 CHLORIDE (test code = 2215) 101 MEQ/L 95-107 CARBON DIOXIDE (test code = 2206) 25 MEQ/L 19-31 CALCIUM (test code = 220) 9.1 MG/DL 8.5-10.5 PROTEIN, TOTAL (test code = 2228) 6.7 G/DL 6.1-8.3 ALBUMIN (test code = 220) 4.1 G/DL 3.5-5.2 CALC GLOBULIN (test code = 2240) 2.6 G/DL 1.9-3.7 CALC A/G RATIO (test code = 2234) 1.6 RATIO 1.0-2.6 BILIRUBIN, TOTAL (test code = 2207) 0.7 MG/DL See_Comment [Automated me ssage] The system which generated this result transmitted reference range: <=1.2. The reference range was not used to interpret this result as normal/abnormal. ALKALINE PHOSPHATASE (test code = 4) 111 U/L 40-142 AST (test code = 2218) 27 U/L 9-40 ALT (test code = 2219) 19 U/L 5-40 UNLESS OTHERWISE INDICATED, ALL TESTING PERFORMED THE MEDICAL [facility] [employer] [address] [place] [id number] LEAD MASSAGE THERAPIST: LAWRENCE GLORIA M.D. CLIA NUMBER [id number] [facility] [place]. [id number] CBC W/AUTO [id number] 00:00:00* Test Item Value Reference Range Interpretation Comme nts WBC (test code = 1001) 5.0 K/UL RBC (test code = 1002) 4.34 M/UL HEMOGLOBIN (test code = 1003) 13.0 G/DL HEMATOCRIT (test code = 1004) 38.4 % MCV (test code = 1005) 88.5 fL MCH (test code = 1006) 30.0 PG MCHC (test code = 1007) 33.9 G/DL RDW (test code = 1038) 13.0 % NEUTROPHILS (test code = 1008) 71.1 % LYMPHOCYTES (test code = 1010) 18.1 % MONOCYTES (test code = 1011) 9.6 % EOSINOPHILS (test code = 1012) 0.6 % BASOPHILS (test code = 1013) 0.4 % IMMATURE GRANULOCYTES (test code = 1036) 0.2 % NUCLEATED RBCS (test code = 1065) 0.0 /100WBC'S PLATELET COUNT (test code = 1015) 234 K/UL ABSOLUTE NEUTROPHILS (test c ode = 1066) 3.54 K/UL ABSOLUTE LYMPHOCYTES (test c ode = 1067) 0.90 K/UL ABSOLUTE MONOCYTES (test cod e = 1068) 0.48 K/UL ABSOLUTE EOSINOPHILS (test c ode = 1040) 0.03 K/UL ABSOLUTE BASOPHILS (test cod e = 1069) 0.02 K/UL ABS IMMATURE GRANULOCYTES (t est code = 1020) 0.01 K/UL ABS NUCLEATED RBCS (test cod e = 75656) 0.00 K/UL Candido FordCOMPREHENSIVE METABOLIC [id number] 00:00:00* Test Item Value Reference Range Interpretation Comme nts GLUCOSE (test code = 2217) 92 MG/DL BUN (test code = 2208) 10 MG/DL CREATININE (test code = 2214) 0.63 MG/DL eGFR (2020 CKD-EPI) (test co de = 63772) 94 ML/MIN/1.73 CALC BUN/CREAT (test code = 2235) 16 RATIO SODIUM (test code = 2231) 139 MEQ/L POTASSIUM (test code = 2228) 3.5 MEQ/L CHLORIDE (test code = 2215) 101 MEQ/L CARBON DIOXIDE (test code = 2206) 25 MEQ/L CALCIUM (test code = 2209) 9.1 MG/DL PROTEIN, TOTAL (test code = 2229) 6.7 G/DL ALBUMIN (test code = 2201) 4.1 G/DL CALC GLOBULIN (test code = 2240) 2.6 G/DL CALC A/G RATIO (test code = 2234) 1.6 RATIO BILIRUBIN, TOTAL (test code = 2207) 0.7 MG/DL ALKALINE PHOSPHATASE (test code = 2204) 111 U/L AST (test code = 2218) 27 U/L ALT (test code = 2219) 19 U/L Candido Anderson AustinLIPID [id number] 03:34:36* Test Item Value Reference Range Interpretation Comme nts CHOLESTEROL (test code = 2210) 162 MG/DL <200 TRIGLYCERIDES (test code = 2232) 129 MG/DL <150 HDL CHOLESTEROL (test code = 2220) 43 MG/DL >39 CALC LDL CHOL (test code = 2237) 96 MG/DL <100 NOTE: CALCULATED LDL IS BASED ON NIMO-HUGO METHOD WHICHINCLUDES ADJUSTABLE TRIGLYCERIDE:VLDL CHOLESTEROL RATIO.THIS FACTOR VARIES BY MEASURED TRIGLYCERIDE AND NON-HDLCHOLESTEROL CONCENTRATIONS WITH INCREASED CALCULATED LDL SEENIN HIGHER TRIGLYCERIDE OR LOWER NON-HDL SPECIMENS. FOR MOREINFORMATION, SEE CLIENT ANNOUNCEMENT AT [email or web address] [email or web address] RATIO LDL/HDL (test code = 2238) 2.23 RATIO <3.22 COMPREHENSIVE METABOLIC [id number] 03:34:36* Test Item Value Reference Range Interpretation Comme nts GLUCOSE (test code = 2217) 98 MG/DL 70-99 BUN (test code = 220) 11 MG/DL 8-23 CREATININE (test code = 2214) 0.52 MG/DL 0.60-1.30 L EFFECTIVE 2020, [facility] HAS IMPLEMENTED THE NKF-ASN RECOMMENDED KD-EPI EGFR REFIT CALCULATION THAT DOES NOT INCLUDE A COEFFICIENT FORRACE. FOR MORE INFORMATION, SEE ANNOUNCEMENT [email or web address] eGFR (2020 CKD-EPI) (test code = 62809) 98 ML/MIN/1.73 >60 CALC BUN/CREAT (test code = 5) 21 RATIO 6-28 SODIUM (test code = 223) 142 MEQ/L 133-146 POTASSIUM (test code = 2228) 3.8 MEQ/L 3.5-5.4 CHLORIDE (test code = 2214) 105 MEQ/L 95-107 CARBON DIOXIDE (test code = 2205) 27 MEQ/L 19-31 CALCIUM (test code = 2209) 8.9 MG/DL 8.5-10.5 PROTEIN, TOTAL (test code = 222) 6.4 G/DL 6.1-8.3 ALBUMIN (test code = 2201) 4.0 G/DL 3.5-5.2 CALC GLOBULIN (test code = 2240) 2.4 G/DL 1.9-3.7 CALC A/G RATIO (test code = 223) 1.7 RATIO 1.0-2.6 BILIRUBIN, TOTAL (test code = 2207) 0.4 MG/DL See_Comment [Automated me ssage] The system which generated this result transmitted reference range: <=1.2. The reference range was not used to interpret this result as normal/abnormal. ALKALINE PHOSPHATASE (test code = 2204) 123 U/L 40-142 AST (test code = 2218) 17 U/L 9-40 ALT (test code = 2219) 15 U/L 5-40 UNLESS OTHERWISE INDICATED, ALL TESTING PERFORMED [facility] [employer] [address] [place] [address], [place] [address] LEAD MASSAGE THERAPIST: LAWRENCE GLORIA M.D. CLIA NUMBER [id number] [place]. [id number] LIPID [id number] 00:00:00* Test Item Value Reference Range Interpretation Comme nts CHOLESTEROL (test code = 2210) 162 MG/DL TRIGLYCERIDES (test code = 2232) 129 MG/DL HDL CHOLESTEROL (test code = 2220) 43 MG/DL CALC LDL CHOL (test code = 2237) 96 MG/DL RISK RATIO LDL/HDL (test cod e = 2238) 2.23 RATIO Candido FordCOMPREHENSIVE METABOLIC [id number] 00:00:00* Test Item Value Reference Range Interpretation Comme nts GLUCOSE (test code = 2217) 98 MG/DL BUN (test code = 2208) 11 MG/DL CREATININE (test code = 2214) 0.52 MG/DL eGFR (2020 CKD-EPI) (test co de = 43945) 98 ML/MIN/1.73 CALC BUN/CREAT (test code = 2235) 21 RATIO SODIUM (test code = 2231) 142 MEQ/L POTASSIUM (test code = 2228) 3.8 MEQ/L CHLORIDE (test code = 2215) 105 MEQ/L CARBON DIOXIDE (test code = 2206) 27 MEQ/L CALCIUM (test code = 2209) 8.9 MG/DL PROTEIN, TOTAL (test code = 2229) 6.4 G/DL ALBUMIN (test code = 2201) 4.0 G/DL CALC GLOBULIN (test code = 2240) 2.4 G/DL CALC A/G RATIO (test code = 2234) 1.7 RATIO BILIRUBIN, TOTAL (test code = 2207) 0.4 MG/DL ALKALINE PHOSPHATASE (test code = 2204) 123 U/L AST (test code = 2218) 17 U/L ALT (test code = 2219) 15 U/L Candido Anderson LoganCOVID-19 (ID NOW RAPID TESTING)2020-04-23 19:24:00* Test Item Value Reference Range Interpretation Comme nts SARS-CoV-2 Rapid ID NOW (test code = 54127-7) Not Detected Not Detected NIRMAL (test code = NIRMAL) ID NOW COVID-19 As say is an isothermal nucleic acid amplification test intended for the qualitative detection of nucleic acid from SARS-CoV-2 viral RNA in nasopharyngeal (LAST INSERTER) specimens. It is used under Emergency Use [...] patient testing if clinically indicated. Lab Interpretation (test code = 07212-5) Normal [facility] Notes Date/Time Note Provider Source Candido Ford [facility]
[2024-06-05 10:51] LABS: Absolute Eosinophils 0.1 K/uL (0-0.5); Absolute Lymphocytes (CBC) 1.3 K/uL (0.7-4.9); Absolute Monocytes 0.5 K/uL (0.1-1.3); Absolute Neutrophil 3.8 K/uL (1.8-8.0); Basophils % 0.8 % (0-1.3); Eosinophils % 1.8 % (0-4.4); Hematocrit 36.1 % (36.0-45.0); Hemoglobin 12.2 g/dL (12.0-15.0); Lymphocytes % 22.8 % (15.3-44.8); MCH 30.9 pg (27.0-35.0); MCHC 33.8 g/dL (32.0-36.0); MCV 91.4 fL (80-100); Monocytes % 8.3 % (3.3-12.3); Neutrophils % 66.3 % (41.7-73.7); Nucleated Red Blood Cells % 0.1 % (0-0); Platelets 202 thou/uL (152-406); RBC Red Blood Cell Count 3.95 M/uL (3.86-4.86); Red Cell Distribution Width 14.6 % (12.1-15.2)
[2024-06-05 11:02] LABS: PT Prothrombin Time 12.2 SECONDS (9.4-12.5); Protime INR 1.09
[2024-06-05 11:07] LABS: Anion Gap 6.3 mEq/L (5.0-15.0); Potassium 3.3 mEq/L (3.5-5.1); Troponin High Sensitivity 5.7 pg/mL (<58.9)
--- NOTE | 2024-06-05 13:29 | RAD REPORT ---
EXAM DESCRIPTION: CTAngio Aorta For Dissection - 06/05/2024 1:01 pm CLINICAL HISTORY: chest pain COMPARISON: Angio Aorta For Dissection dated 08/17/2020; Chest Abdomen Pelvis W Cont dated 06/06/2023 TECHNIQUE: CTA of the chest, abdomen, and pelvis was performed with IV contrast. MIPS reconstruction s and reformats were provided. All CT scans are performed using dose optimization technique as appropriate and may include automated exposure control or mA/KV adjustment according to patient size. FINDINGS: Thorax: Chest Wall: Small right breast nodule measuring 7 millimeters unchanged since 2019. Lungs: No acute abnormality. Pleura: No effusions or pneumothorax. Kim/Mediastinum: No lymphadenopathy. Circumferential thickened distal esophagus that could reflect m ild esophagitis. Aorta/Pulmonary Arteries: Thoracic aortic atherosclerosis. No aneurysm. Aortic root calcifications. Heart: Normal size. Scattered coronary calcifications . Abdomen/Pelvis: Liver: No acute abnormality or suspicious lesions. Biliary: No biliary ductal dilatation. Cholecystectomy . Stomach: No significant focal abnormality. Duodenum: No significant focal abnormality. Pancreas: No significant abnormality. Spleen: No significant abnormality. Adrenal: No suspicious lesions. Kidney/ureter: No hydronephrosis. No renal calculi. Retroperitoneum: No retroperitoneal adenopathy. Vascular: No aneurysm. Atherosclerosis. Bowel: Large formed stool diverticulum at the distal sigmoid. Multiple other colonic diverticular not ed.. Peritoneum: No ascites or free air. Bladder: Grossly unremarkable. Reproductive: No adnexal masses. Bones: No acute fracture. Other: Prior ventral hernia repair. IMPRESSION: No aortic aneurysm or dissection identified. No pulmonary embolus. Patulous appearance of the distal sigmoid with a large diverticula containing inspissated stool. Cons ider further evaluation with colonoscopy to evaluate the etiology for the distal sigmoid distension a t this location. No evidence of diverticulitis.
[2024-06-05] MEDS ORDERED: ASPIRIN 81 MG CHEWABLE TABLET ONE (14:04)
--- NOTE | 2024-06-05 14:40 | RAD REPORT ---
EXAM DESCRIPTION: RAD - Chest Single View - 06/05/2024 2:16 pm CLINICAL HISTORY: chest pain COMPARISON: Chest Pa And Lat (2 Views) dated 12/29/2023; Chest Single View dated 06/06/2023; Chest Pa A nd Lat (2 Views) dated 05/25/2023; Chest Single View dated 08/17/2020 FINDINGS: Lines: None. Lungs: No evidence of edema or pneumonia. Pleural: No significant pleural effusions or pneumothorax. Cardiac: Similar size configuration . Mediastinum: Within normal limits. Bones: No acute fractures. Other: None IMPRESSION: No acute cardiopulmonary disease.
[2024-06-05] MEDS ORDERED: MORPHINE 2 MG/ML SYR IV PRN (16:06)
[2024-06-05] MEDS ORDERED: HYDRALAZINE HCL 20 MG/ML VIAL IV PRN (16:06)
[2024-06-05] MEDS ORDERED: NITROGLYCERIN 0.4 MG/TAB SL PRN (16:06)
--- NOTE | 2024-06-05 16:14 | P.HP ---
Certification for Inpatient Patient admitted to: Observation With expected LOS: <2 Midnights Patient will require the following post-hospital care: None Practitioner: I am a practitioner with admitting privileges, knowledge of patient current condition, hospital course, and medical plan of care. Services: Services provided to patient in accordance with Admission requirements found in Title 42 Section 412.3 of the Code of Federal Regulations Patient History Date of Service: 06/05/24 Reason for admission: Chest pain r/o History of Present Illness: Dari Miguel is a 73 year old female with Pmhx acid reflux, anxiety, hyperlipidemia, CAD with stent (2022), hypertension, atrial fibrillation, depressive disorder, and anxiety who presents to the ED with worsening chest pain. She reports being in pre-op registering for a heart cath on with Dr. Coello when her chest pain began to worsen in intensity, substernal chest pain. She reports having continual chest pain since her Stent was placed last year. Initial troponin and EKG negative. Chest x-ray report "No acute cardiopulmonary disease." CT dissection reports "No aortic aneurysm or dissection identified. No pulmonary embolus. Patulous appearance of the distal sigmoid with a large diverticula containing inspissated stool. Consider further evaluation with colonoscopy to evaluate the etiology for the distal sigmoid distension at this location. No evidence of diverticulitis." Dari will be admitted to hospitalist service for further evaluation and treatment, Dr. Coello consulted. Allergies tree nut Allergy (Verified 12/29/23 09:14) Anaphylaxis Pecans Allergy (Severe, Uncoded 12/29/23 09:14) Anaphylaxis Home Medications: Atorvastatin Calcium [Lipitor] 40 mg PO BEDTIME 01/03/17 Clopidogrel Bisulfate [Plavix] 75 mg PO DAILY 01/03/17 Famotidine 40 mg PO DAILY 01/03/17 Furosemide [Lasix] 20 mg PO DAILY 01/03/17 Amiodarone HCl 200 mg PO DAILY 05/25/23 Buspirone HCl 10 mg PO BEDTIME 05/25/23 Omeprazole [Prilosec] 40 mg PO DAILY 05/25/23 - Past Medical/Surgical History -: Hypertension -: Acid reflux -: Hyperlipidemia -: Atrial fibrillation -: Depression/anxiety -: Coronary artery stent - Family History Family History: Reviewed- Non-Contributory - Social History Smoking Status: Never smoker Alcohol use: No CD- Drugs: No Review of Systems Respiratory: Cough Cardiovascular: Chest Pain Physical Examination - Physical Exam General: Alert, In no apparent distress, Oriented x3 HEENT: Atraumatic, Normocephalic, PERRLA Neck: Supple, 2+ carotid pulse no bruit Respiratory: Clear to auscultation bilaterally, Normal air movement Cardiovascular: No edema, Normal pulses, Regular rate/rhythm, Normal S1 S2 Capillary refill: <2 Seconds Gastrointestinal: Normal bowel sounds, Soft and benign, No tenderness Musculoskeletal: No swelling Integumentary: No rashes Neurological: Normal speech, Normal tone - Studies Laboratory Data (last 24 hrs) 06/05/24 06/05/24 06/05/24 10:35 10:35 10:35 WBC 5.70 Hgb 12.2 Hct 36.1 Plt Count 202 PT 12.2 INR 1.09 Sodium 142 Potassium 3.3 L BUN 13 Creatinine 0.72 Glucose 99 Assessment and Plan - Plan Assessment and plan Chest pain rule out in a patient with CAD with stent (2022) Atrial fibrillation -Chest x-ray report "No acute cardiopulmonary disease." -CT dissection reports "No aortic aneurysm or dissection identified. No pulmonary embolus. Patulous appearance of the distal sigmoid with a large diverticula containing inspissated stool. Consider further evaluation with colonoscopy to evaluate the etiology for the distal sigmoid distension at this location. No evidence of diverticulitis." -Continue home medication - EKG: No obvious ST segment changes, trend - troponin 5.7, Serial pending - Ordered transthoracic echocardiogram - Consult Cardiology - recommendations appreciated - S/P aspirin 324 mg PO x 1 in ED - Start daily baby aspirin and statin - Symptom control with PRN acetaminophen, nitroglycerin, morphine -continuous telemetry -TSH/FreeT4, A1C, lipid panel pending -NPO at midnight Hypokalemia -k 3.3 -Replacement Protocol in place Acid reflux Anxiety/depression Hyperlipidemia Hypertension -Continue home medication DVT ppx SCD Full code LOS 24 obs Discharge Plan: Home Plan to discharge in: 24 Hours - Advance Directives Does patient have a Living Will: No Does patient have a Durable POA for Healthcare: No
--- NOTE | 2024-06-05 17:05 | EKG ---
Test Date: 2024-06-05 Test Time: 10:28:40 Optimization Engineer: HEIDY MEASUREMENT RESULTS: Intervals: Rate: 60 CA: 140 QRSD: 86 QT: 462 QTc: 462 [place]: P: 20 CA: 140 QRS: 51 T: 69 INTERPRETIVE STATEMENTS: Normal sinus rhythm Nonspecific ST abnormality Abnormal ECG Compared to ECG 12/29/2023 10:22:59 ST (T wave) deviation now present Sinus bradycardia no longer present Electronically Signed On 06-05-24 17:04:22 CDT by Travis Coello
--- NOTE | 2024-06-05 17:12 | ER ---
Nurse's Notes [facility] Name: Dari Miguel Age: 73 yrs Sex: Female : 1950 Arrival Date: 06/05/2024 Time: 10:20 Bed 20 Private MD: Diagnosis: Chest pain, unspecified Presentation: 06/05 10:30 Chief complaint: Patient states: Chest pain for a month, was at preop today for a nj1 scheduled cardiac cath on . 10:30 Coronavirus screen: Vaccine status: Patient reports receiving the 2nd dose of the covid nj1 vaccine. Ebola Screen: Patient denies travel to an Ebola-affected area in the 21 days before illness onset. Onset of symptoms was April 2024. 10:30 Method Of Arrival: Wheelchair [facility] 10:32 Initial Sepsis Screen: Does the patient meet any 2 criteria? No. Patient's initial mb9 sepsis screen is negative. Does the patient have a suspected source of infection? No. Patient's initial sepsis screen is negative. Risk Assessment: Do you want to hurt yourself or someone else? Patient reports no desire to harm self or others. 10:32 Acuity: ANISHA 2 mb9 Historical: - Allergies: 10:30 Peanut; nj1 10:30 PECANS; nj1 - PMHx: 10:30 acid reflux; Anxiety; Hyperlipidemia; Hypertension; Atrial fibrillation; Depressive nj1 disorder; - Immunization history:: Client reports receiving the 2nd dose of the Covid vaccine. - Infectious Disease History:: Denies. - Family history:: not pertinent. - Social history:: Smoking status: Patient denies any tobacco usage or history of. - Hospitalizations: : No recent hospitalization is reported. Screenin:32 [facility] ED Fall Risk Assessment (Adult) History of falling in the last 3 months, mb9 including since admission No falls in past 3 months (0 pts) Confusion or Disorientation No (0 pts) Intoxicated or Sedated No (0 pts) Impaired Gait No (0 pts) Mobility Assist Device Used No (0 pt) Altered Elimination No (0 pt) Score/Fall Risk Level 0 - 2 = Low Risk Oriented to surroundings, Maintained a safe environment, Educated pt \T\ family on fall prevention, incl call for assistance when getting out of bed. Abuse screen: Denies threats or abuse. Nutritional screening: No deficits noted. Tuberculosis screening: No symptoms or risk factors identified. Assessment: 10:42 General: Appears in no apparent distress. Behavior is calm, cooperative. Pain: kj2 Complains of pain in chest Pain does not radiate. Pain began 1 month. Neuro: Level of Consciousness is awake, alert, obeys commands, Oriented to person, place, situation. Cardiovascular: Patient's skin is warm and dry. Respiratory: Airway is patent Respiratory effort is unlabored. 10:48 Reassessment:. kj2 11:12 Reassessment: No changes from previously documented assessment. Patient and/or family kj2 updated on plan of care and expected duration. Pain level reassessed. Patient is alert, oriented x 3, equal unlabored respirations, skin warm/dry/pink. 13:55 Reassessment: Patient appears in no apparent distress at this time. Patient is alert, kj2 oriented x 3, equal unlabored respirations, skin warm/dry/pink. Vital Signs: 10:30 BP 180 / 58; Pulse 57; Resp 18; Temp 97(TE); Pulse Ox 100% on R/A; Weight 87.54 kg; nj1 Height 5 ft. 0 in. ; Pain 8/10; 11:12 BP 151 / 58; Pulse 59; Resp 18; Temp 98.8; Pulse Ox 96% on R/A; kj2 12:21 BP 161 / 58; Pulse 59; Resp 18; Pulse Ox 99% ; mb9 14:11 BP 144 / 55; Pulse 59; Resp 20; Pulse Ox 100% on R/A; kj2 16:53 BP 144 / 56; Pulse 56; Resp 20; Pulse Ox 100% on R/A; kj2 10:30 Body Mass Index 37.69 (87.54 kg, 152.4 cm) nj1 10:30 Pain Scale: Adult nj1 ED Course: 10:22 Patient arrived in ED. ph 10:24 Fco Hinojosa MD is Attending Physician. rn 10:30 Emily Manzano RN is Primary Nurse. kj2 10:31 EKG done, by ED staff, reviewed by Fco Hinojosa MD. mb9 10:32 Triage completed. mb9 10:32 Arm band placed on right wrist. nj1 10:36 Client placed on continuous cardiac and pulse oximetry monitoring. NIBP monitoring nj1 applied. clinical research monitor on. 10:36 Placed in gown. Bed in low position. Call light in reach. Side rails up X 1. Provided mb9 Education on: PRESS CALL LIGHT IF NEEDING ANYTHING. Client placed on continuous cardiac and pulse oximetry monitoring. NIBP monitoring applied. clinical research monitor on. 10:46 No provider procedures requiring assistance completed. Inserted saline lock: 20 gauge kj2 in right antecubital area, using aseptic technique. Blood collected. Flushed with 10 mL NS. 10:46 Patient maintains SpO2 saturation greater than 95% on room air. kj2 12:[address] via wheelchair. mb9 13:03 Angio Aorta For Dissection In Process Unspecified. EDMS 14:04 Marquez Rodriguez MD is Hospitalizing Provider. rn 14:18 Chest Single View In Process Unspecified. EDMS 17:35 Patient admitted, IV remains in place. mb9 Administered Medications: 14:11 Drug: Aspirin PO Chewable Tablet 324 mg PO once; 81 mg tablets x 4 Route: PO; kj2 16:51 Follow up: Response: No adverse reaction kj2 Medication: 10:36 VIS not applicable for this client. mb9 Outcome: 14:04 Decision to Hospitalize by Provider. rn 17:36 Admitted to Med/surg accompanied by nurse, via wheelchair, kj2 17:36 Condition: stable 17:36 Instructed on the need for admit, 17:38 Patient left the ED. kj2 Signatures: Dispatcher [employer] EDMS Fco Hinojosa MD MD rn Hall, Patricia RN RN jason [place], Magda Goodwin, RN RN mb9 Cheryl Rodriguez, RN RN nj1 Emily Manzano RN RN kj2 Corrections: (The following items were deleted from the chart) 10:36 10:32 Arm band placed on mb9 nj1
--- NOTE | 2024-06-05 17:12 | EDPHYS ---
Physician Documentation [facility] Name: Dari Miguel Age: 73 yrs Sex: Female : 1950 Arrival Date: 06/05/2024 Time: 10:20 Bed 20 Private MD: ED Physician Fco Hinojosa HPI: 06/05 10:31 This 73 yrs old Female presents to ER via Unassigned with complaints of Chest rn Pain. 10:31 The patient or guardian reports chest pain that is located primarily in the substernal rn area. Onset: 1 month(s) ago. The pain does not radiate. Associated signs and symptoms: Pertinent negatives: abdominal pain, cough, diaphoresis, shortness of breath, syncope, vomiting. The chest pain is described as aching, a pressure. Modifying factors: The symptoms are alleviated by nothing. the symptoms are aggravated by nothing. Severity of pain: At its worst the pain was mild in the emergency department the pain is unchanged. The patient has experienced similar episodes in the past. Pt reports sent from pre-op for chest pain. Has scheduled heart cath with Dr. Coello, has been having chest pain for 1month. + cough for last couple of days, no fever. NO abd pain. Pain radiates to back. . Historical: - Allergies: 10:30 Peanut; nj1 10:30 PECANS; nj1 - PMHx: 10:30 acid reflux; Anxiety; Hyperlipidemia; Hypertension; Atrial fibrillation; Depressive nj1 disorder; - Immunization history:: Client reports receiving the 2nd dose of the Covid vaccine. - Infectious Disease History:: Denies. - Family history:: not pertinent. - Social history:: Smoking status: Patient denies any tobacco usage or history of. - Hospitalizations: : No recent hospitalization is reported. ROS: 10:31 Constitutional: Negative for fever, chills, and weight loss, Cardiovascular: + chest rn pain Respiratory: Negative for shortness of breath, cough, wheezing, and pleuritic chest pain, Abdomen/GI: Negative for abdominal pain, nausea, vomiting, diarrhea, and constipation, MS/Extremity: Negative for injury and deformity, Skin: Negative for injury, rash, and discoloration, Neuro: Negative for headache, weakness, numbness, tingling, and seizure, Exam: 10:31 Constitutional: This is a well developed, well nourished patient who is awake, alert, rn and in no acute distress. Cardiovascular: Regular rate and rhythm. No pulse deficits. Respiratory: No increased work of breathing, no retractions or nasal flaring. Abdomen/GI: Soft, non-tender, no masses MS/ Extremity: Pulses equal, no cyanosis. Neuro: Awake and alert, GCS 15 10:35 ECG was reviewed by the Attending Physician. rn Vital Signs: 10:30 BP 180 / 58; Pulse 57; Resp 18; Temp 97(TE); Pulse Ox 100% on R/A; Weight 87.54 kg; nj1 Height 5 ft. 0 in. ; Pain 8/10; 11:12 BP 151 / 58; Pulse 59; Resp 18; Temp 98.8; Pulse Ox 96% on R/A; kj2 12:21 BP 161 / 58; Pulse 59; Resp 18; Pulse Ox 99% ; mb9 14:11 BP 144 / 55; Pulse 59; Resp 20; Pulse Ox 100% on R/A; kj2 16:53 BP 144 / 56; Pulse 56; Resp 20; Pulse Ox 100% on R/A; kj2 10:30 Body Mass Index 37.69 (87.54 kg, 152.4 cm) nj1 10:30 Pain Scale: Adult nj1 MDM: 10:24 Patient medically screened. rn 14:03 Differential diagnosis: acute myocardial infarction, acute pericarditis, anxiety, rn coronary artery disease. HEART Score: History: Moderately Suspicious (1), ECG: Non specific repolarization disturbance / LBTB / PM (1), Age: > or = 65 years (2), Risk Factors: > or = 3 Risk factors for atherosclerotic disease (2), Troponin: < or = 1 x Normal Limit (0), Total Score = 6. The patient was given aspirin in the Emergency Department. Data reviewed: vital signs, nurses notes, lab test result(s), EKG, radiologic studies, CT scan, plain films, and as a result, I will admit patient. Consideration of Admission/Observation Patient was admitted/placed on observation. Escalation of care including admission/observation considered. Counseling: I had a detailed discussion with the patient and/or guardian regarding the historical points, exam findings, and any diagnostic results supporting the discharge/admit diagnosis, lab results, radiology results, the need for further work-up and treatment in the hospital. Response to treatment: the patient's symptoms have mildly improved after treatment, and as a result, I will admit patient. 14:03 ED course: Still having intermittent chest pain, troponin negative, CT angio negative. rn After discussion with patient and family member, decision made jointly to admit for cardiac consultation and likely cath earlier than originally planned his chest pain is worsening and lasting longer.. 06/05 10:24 Order name: Basic Metabolic Panel rn 06/05 10:24 Order name: CBC with Diff rn 06/05 10:24 Order name: NT PRO-BNP rn 06/05 10:24 Order name: PT-INR rn 06/05 10:24 Order name: Troponin HS rn 06/05 10:46 Order name: Basic Metabolic Panel; Complete Time: 13:02 EDMS 06/05 10:46 Order name: Troponin High Sensitivity; Complete Time: 13:02 EDMS 06/05 10:46 Order name: NT PRO-BNP; Complete Time: 13:02 EDMS 06/05 10:46 Order name: CBC with Automated Diff; Complete Time: 13:02 EDMS 06/05 10:46 Order name: Protime (+INR); Complete Time: 13:02 EDMS 06/05 16:13 Order name: T4 Free EDMS 06/05 16:13 Order name: Thyroid Stimulating Hormone EDMS 06/05 16:13 Order name: Urinalysis w/ reflexes EDMS / 16:13 Order name: Basic Metabolic Panel EDMS 06/05 16:13 Order name: Basic Metabolic Panel EDMS 06/05 16:13 Order name: CBC with Automated Diff EDMS 06/05 16:13 Order name: CBC with Automated Diff EDMS 06/05 16:13 Order name: Lipid Profile EDMS 06/05 16:13 Order name: Lipid Profile EDMS 06/05 16:13 Order name: Magnesium EDMS 06/05 16:13 Order name: Magnesium EDMS 06/05 16:13 Order name: Phosphorus EDMS 06/05 16:13 Order name: Phosphorus EDMS / 16:13 Order name: Troponin High Sensitivity EDMS 06/05 16:13 Order name: Troponin High Sensitivity EDMS 06/05 16:13 Order name: Troponin High Sensitivity EDMS 06/05 12:53 Order name: Angio Aorta For Dissection; Complete Time: 13:51 EDMS 06/05 12:53 Order name: Chest Single View EDNY 06/05 16:13 Order name: Echo with Doppler EDNY 06/05 10:24 Order name: Cardiac monitoring; Complete Time: 10:33 rn 06/05 10:24 Order name: EKG - Nurse/Tech; Complete Time: 10:33 rn 06/05 10:24 Order name: IV Saline Lock; Complete Time: 10:41 rn 06/05 10:24 Order name: Labs collected and sent; Complete Time: 10:41 rn 06/05 10:24 Order name: O2 Per Protocol; Complete Time: 10:33 rn 06/05 10:24 Order name: O2 Sat Monitoring; Complete Time: 10:33 rn EC:35 Rate is 60 beats/min. Rhythm is regular. QRS [place] is Normal. MI interval is normal. QRS rn interval is normal. QT interval is normal. No Q waves. T waves are Normal. No ST changes noted. Clinical impression: NSR w/ Non-specific ST/T Changes. Interpreted by me. Reviewed by me. Administered Medications: 14:11 Drug: Aspirin PO Chewable Tablet 324 mg PO once; 81 mg tablets x 4 Route: PO; kj2 16:51 Follow up: Response: No adverse reaction kj2 Disposition Summary: 06/05/24 14:04 Hospitalization Ordered Notes: Hospitalization Status: Observation rn Provider: Marquez Rodriguez [facility] Condition: Stable rn Problem: new rn Symptoms: have improved rn Bed/Room Type: Standard rn Room Assignment: 215(06/05/24 16:21) eb Diagnosis - Chest pain, unspecified rn Forms: - Medication Reconciliation Form rn - SBAR form rn - Leadership Thank You Letter rn Signatures: Dispatcher [employer] EDNY Fco Hinojosa MD MD rn Botello, Elizabeth eb Jaco, Norma RN RN nj1 Emily Manzano RN RN kj2 Corrections: (The following items were deleted from the chart) 16:21 14:04 rn eb 16:57 16:57 BASIC METABOLIC PANEL+C.LAB.BRZ ordered. EDMS EDMS 16:57 16:57 CBC+H.LAB.BRZ ordered. EDMS EDMS 16:57 16:57 PROBNP+C.LAB.BRZ ordered. EDMS EDMS 16:57 16:57 PROTIME (+INR)+COAG.LAB.BRZ ordered. EDMS EDMS 16:57 16:57 Troponin High Sensitivity+C.LAB.BRZ ordered. EDMS EDMS 16:57 16:57 Chest Single View+RAD.RAD.BRZ ordered. EDMS EDMS 16:57 16:57 Angio Aorta For Dissection+CT.RAD.BRZ ordered. EDMS EDMS
[2024-06-05 18:11] LABS: Thyroid Stimulating Hormone 2.08 uIU/mL (0.358-3.740)
[2024-06-05] MEDS: NA CHLORIDE 0.9% 1,000 ML IV SCH (19:51)
[2024-06-05] MEDS: POTASSIUM 25 MEQ EFFERV TAB PO ONE (21:36)
[2024-06-05] MEDS ORDERED: clonazePAM 0.5 MG TAB PO PRN (23:18)
[2024-06-05] MEDS ORDERED: LORATADINE 10 MG TAB PO PRN (23:18)
[2024-06-06] MEDS: POTASSIUM CL 40 MEQ in NA CHLORIDE 0.9% 500 ML IV SCH (01:12)
[2024-06-06] MEDS: FUROSEMIDE 40 MG/4 ML VIAL IV ONE (01:12)
[2024-06-06] MEDS: ATORVASTATIN 40 MG TAB PO SCH ×2 (01:12→02:00)
[2024-06-06] MEDS: KCL 20 MEQ/100 mL IVPB 100 ML IV SCH (02:00)
[2024-06-06] MEDS: ACETAMINOPHEN 500 MG TAB PO PRN (02:07)
[2024-06-06 05:24] LABS: Absolute Eosinophils 0.1 K/uL (0-0.5); Absolute Lymphocytes (CBC) 1.4 K/uL (0.7-4.9); Absolute Monocytes 0.5 K/uL (0.1-1.3); Absolute Neutrophil 3.8 K/uL (1.8-8.0); Basophils % 0.7 % (0-1.3); Eosinophils % 2.4 % (0-4.4); Hematocrit 34.6 % (36.0-45.0); Hemoglobin 11.7 g/dL (12.0-15.0); MCH 30.8 pg (27.0-35.0); MCHC 33.9 g/dL (32.0-36.0); MCV 90.9 fL (80-100); MPV 8.6 fL (7.6-11.3); Monocytes % 8.7 % (3.3-12.3); Neutrophils % 64.2 % (41.7-73.7); Nucleated Red Blood Cells % 0.3 % (0-0); Platelets 183 thou/uL (152-406); Red Cell Distribution Width 14.3 % (12.1-15.2)
[2024-06-06 05:50] LABS: Specific Gravity 1.011 (1.005-1.030); Sqamous Epithelial <5 /HPF (None Seen); Urine Bacteria 20-50 /HPF (<20); Urine Bilirubin NEGATIVE (Negative); Urine Blood Negative (Negative); Urine Clarity Turbid (Clear); Urine Color Colorless (Yellow); Urine Culture Reflex Order NOT NEEDED; Urine Glucose NEGATIVE (Negative); Urine Ketones NEGATIVE (Negative); Urine Microscopic Reflex YN ORDER UMIC; Urine Mucus Slight /HPF (None Seen); Urine Nitrite 1+ (Negative); Urine Protein NEGATIVE (Negative); Urine RBC None Seen /HPF (None Seen); Urine Urobilinogen Normal (Normal); Urine WBC <5 /HPF (<5)
[2024-06-06 05:55] LABS: Anion Gap 7.5 mEq/L (5.0-15.0); Magnesium 2.2 mg/dL (1.6-2.4); Phosphorus 2.2 mg/dL (2.5-4.9); Potassium 3.5 mEq/L (3.5-5.1); Thyroid Stimulating Hormone 1.77 uIU/mL (0.358-3.740)
[2024-06-06] MEDS: POTASSIUM 25 MEQ EFFERV TAB PO ONE (06:33)
[2024-06-06] MEDS: PANTOPRAZOLE 40MG TABLET PO SCH (07:59)
[2024-06-06] MEDS: POTASS/SODIUM PHOSPHATE 1 PKT POWD.PACK PO SCH (07:59)
[2024-06-06] MEDS: AMLODIPINE 10 MG TAB PO SCH (08:04)
[2024-06-06] MEDS: ASPIRIN 81 MG CHEWABLE TABLET PO SCH (08:04)
[2024-06-06] MEDS: CLOPIDOGREL 75 MG TABLET PO SCH (08:05)
[2024-06-06] MEDS: SERTRALINE HCL 100 MG TAB PO SCH (08:05)
[2024-06-06] MEDS: ISOSORBIDE MONO SR 30 MG TAB PO SCH (08:05)
[2024-06-06] MEDS: FUROSEMIDE 20 MG TABLET PO SCH (08:06)
[2024-06-06] MEDS: AMIODARONE HCL 200 MG TAB PO SCH (08:07)
[2024-06-06] MEDS: carvediloL 12.5 MG TAB PO SCH (08:07)
[2024-06-06] MEDS ORDERED: HOME MED 1 EA UNK (Omeprazole [Prilosec] 40 MG Capsule.Dr) PO SCH (09:00)
[2024-06-06] MEDS ORDERED: ASPIRIN EC 81 MG TAB PO SCH (09:00)
--- NOTE | 2024-06-06 17:05 | P.CNS ---
Date of Consult: 06/06/24 Chief Complaint: Chest pain r/o History of Present Illness: Patient with PMH of atrial fibrillation, CAD s/p RCA PCI recently presented with chest pain that has been going on for few days, pressure in nature, radiating to her left arm, no other associated symptoms, no SOB,no palpitations, no syncope. Allergies tree nut Allergy (Verified 06/06/24 02:51) Anaphylaxis Pecans Allergy (Severe, Uncoded 06/06/24 02:51) Anaphylaxis Home Medications: Atorvastatin Calcium [Lipitor] 40 mg PO BEDTIME 01/03/17 Clopidogrel Bisulfate [Plavix] 75 mg PO DAILY 01/03/17 Furosemide [Lasix] 20 mg PO DAILY 01/03/17 Amiodarone HCl 200 mg PO DAILY 05/25/23 Omeprazole [Prilosec] 40 mg PO DAILY 05/25/23 Amlodipine [Norvasc*] 10 mg PO DAILY 06/05/24 Aspirin Chewable [Aspirin Chewable*] 81 mg PO DAILY 06/05/24 Isosorbide Mononitrate [Isosorbide Mononitrate ER] 30 mg PO DAILY 06/05/24 Loratadine [Claritin*] 10 mg PO DAILYPRN PRN 06/05/24 Sertraline [Zoloft*] 100 mg PO DAILY 06/05/24 carvediloL [Coreg*] 12.5 mg PO BID 06/05/24 clonazePAM [Clonazepam] 0.5 mg PO BIDP PRN 06/05/24 - Past Medical/Surgical History Diabetic: No -: Hypertension -: Acid reflux -: Hyperlipidemia -: Atrial fibrillation -: Depression/anxiety -: Coronary artery stent -: right shoulder sx - Social History Smoking Status: Unknown if ever smoked Alcohol use: No CD- Drugs: No Caffeine use: Yes Place of Residence: Home Review of Systems 10-point ROS is otherwise unremarkable Physical Examination Temp Pulse Resp BP Pulse Ox 97.8 F 60 16 134/60 92 06/06/24 12:00 06/06/24 12:00 06/06/24 12:00 06/06/24 12:00 06/06/24 12:00 General: Alert, In no apparent distress HEENT: Atraumatic, PERRLA, Mucous membr. moist/pink, EOMI, Sclerae nonicteric Neck: Supple, 2+ carotid pulse no bruit, No LAD, Without JVD or thyroid abnormality Respiratory: Clear to auscultation bilaterally, Normal air movement Cardiovascular: Regular rate/rhythm, Normal S1 S2 Gastrointestinal: Normal bowel sounds, No tenderness Musculoskeletal: No tenderness Integumentary: No rashes Neurological: Normal gait, Normal speech, Normal tone, Normal affect Lymphatics: No axilla or inguinal lymphadenopathy Laboratory Data (last 24 hrs) 06/05/24 06/05/24 06/05/24 10:24 10:24 10:24 WBC Cancelled Hgb Cancelled Hct Cancelled Plt Count Cancelled PT Cancelled INR Cancelled Sodium Cancelled Potassium Cancelled BUN Cancelled Creatinine Cancelled Glucose Cancelled - Problems (1) CAD (coronary artery disease) Current Visit: Yes Status: Acute Plan: with worsening angina, plan of coronary angiogram in am keep NPO after midnight. continue plavix and aspirin (2) Atrial fibrillation Current Visit: Yes Status: Acute Plan: continue amiodarone. hold eliquis for heart cath (3) Diastolic heart failure Current Visit: Yes Status: Acute Plan: chronic, euvolemic, continue coreg
--- NOTE | 2024-06-06 18:50 | P.PN ---
Date of Service: 06/06/24 Subjective Awake with no complaints of chest pain this AM Plan for Heart cath in the AM, NPO after midnight ROS 10 point ROS as noted above, otherwise negative Physical Exam General: Alert and Oriented x3, NAD HEENT: Atraumatic, Normocephalic, PERRLA Neck: Supple, 2+ carotid pulse no bruit Respiratory: Clear to auscultation bilaterally, symmetrical chest wall movement, on RA Cardiovascular: No edema, Normal pulses, RRR, Normal S1 S2 Capillary refill: <2 Seconds Gastrointestinal: Normal bowel sounds, Soft and benign, No tenderness Musculoskeletal: No swelling, 2 + peripheral pulses Integumentary: No rashes Neurological: Normal speech, Normal tone Vitals Reviewed Problem list Chest pain rule out in a patient with CAD with stent (2022) Atrial fibrillation Hypokalemia Acid reflux Anxiety/depression Hyperlipidemia Hypertension Assessment and Plan Chest pain rule out in a patient with CAD with stent (2022) Atrial fibrillation- Normal sinus since admission -Chest x-ray report "No acute cardiopulmonary disease." -CT dissection reports "No aortic aneurysm or dissection identified. No pulmonary embolus. Patulous appearance of the distal sigmoid with a large diverticula containing inspissated stool. Consider further evaluation with colonoscopy to evaluate the etiology for the distal sigmoid distension at this location. No evidence of diverticulitis." -Continue home medication - EKG: No obvious ST segment changes, trend - troponin 5.7, 8.4 - echocardiogram-results pending - Consult Cardiology - recommendations appreciated - S/P aspirin 324 mg PO x 1 in ED - Start daily baby aspirin and statin - Symptom control with PRN acetaminophen, nitroglycerin, morphine - continuous telemetry -TSH/FreeT4, A1C, lipid panel all WNL -NPO at midnight Hypokalemia -k 3.5 -Replacement Protocol in place Acid reflux Anxiety/depression Hyperlipidemia Hypertension -Continue home medication DVT ppx SCD/lovenox Full code LOS 24 obs Discharge Plan: Home
[2024-06-06] MEDS ORDERED: ATORVASTATIN 40 MG TAB PO SCH (21:00)
[2024-06-06] MEDS: ENOXAPARIN 40 MG/0.4 ML SQ SCH (21:05)
[2024-06-07 05:37] LABS: Anion Gap 7.2 mEq/L (5.0-15.0); Phosphorus 2.8 mg/dL (2.5-4.9); Potassium 3.2 mEq/L (3.5-5.1)
[2024-06-07] MEDS: KCL 20 MEQ/100 mL IVPB 20 MEQ/100 ML BAG IV SCH (06:01)
[2024-06-07] MEDS ORDERED: NA CHLORIDE 0.9% 500 ML ONE (08:45)
--- NOTE | 2024-06-07 08:51 | ECHO ---
HEIGHT: 5 ft 0 in WEIGHT: 188 lb 0 oz DATE OF STUDY: 06/06/[address]: Emma Peres NP 2-DIMENSIONAL: YES M.MODE: YES DOPPLER: YES COLOR FLOW: YES TDS: PORTABLE: YES DEFINITY: BUBBLE STUDY: DIAGNOSIS: CHEST PAIN CARDIAC HISTORY: CATHERIZATION: SURGERY: PROSTHETIC VALVE: PACEMAKER: MEASUREMENTS (cm) DIASTOLIC (NORMALS) SYSTOLIC (NORMALS) IVSd 0.9 (0.6-1.2) LA Diam 3.4 (1.9-4.0) LVEF 60-65% LVIDd 3.6 (3.5-5.7) LVIDs 2.3 (2.0-3.5) %FS 37% LVPWd 0.9 (0.6-1.2) Ao Diam 2.1 (2.0-3.7) 2 DIMENSIONAL ASSESSMENT: RIGHT ATRIUM: NORMAL LEFT ATRIUM: NORMAL RIGHT VENTRICLE: NORMAL LEFT VENTRICLE: NORMAL TRICUSPID VALVE: TRACE TRICUSPID REGURGITATION MITRAL VALVE: NORMAL PULMONIC VALVE: NORMAL AORTIC VALVE: NORMAL PERICARDIAL EFFUSION: NONE AORTIC ROOT: NORMAL LEFT VENTRICULAR WALL MOTION: NORMAL DOPPLER/COLOR FLOW: GRADE I DIASTOLIC DYSFUNCTION COMMENTS: 1. NORMAL LEFT VENTRICULAR SYSTOLIC FUNCTION, EJECTION FRACTION 60-65%, NORMAL WALL MOTION 2. GRADE I DIASTOLIC DYSFUNCTION TECHNOLOGIST: ZACHARIAH MATA
[2024-06-07] MEDS ORDERED: LIDOCAINE 1% 20 ML MDV ONE (09:28)
[2024-06-07] MEDS ORDERED: HEPA 1000U/500MLS 2,000 UNIT/1,000 ML BAG IV ONE (09:28)
[2024-06-07] MEDS ORDERED: FENTANYL CITR 100 MCG/2 ML ONE ×2 (09:29→11:30)
[2024-06-07] MEDS ORDERED: ATROPINE SULF 1 MG/10 ML SYR IV ONE (09:29)
[2024-06-07] MEDS ORDERED: MIDAZOLAM HCL 2 MG/2 ML INJ ONE ×2 (09:29→10:57)
[2024-06-07] MEDS ORDERED: HEPARIN 10,000 UNIT/10 ML VIAL IV ONE (09:29)
[2024-06-07] MEDS ORDERED: TICAGRELOR 90 MG TABLET PO ONE (09:29)
[2024-06-07] MEDS ORDERED: ASPIRIN 325 MG TAB ONE (09:30)
[2024-06-07] MEDS ORDERED: CLOPIDOGREL 75 MG TABLET ONE (09:30)
[2024-06-07] MEDS ORDERED: HEPA 1000U/500MLS 1,000 UNIT/500 ML BAG IV ONE (12:02)
--- NOTE | 2024-06-07 12:33 | P.PN ---
Subjective Date of Service: 06/07/24 Chief Complaint: Chest pain r/o Subjective: No new changes, No C/O voiced, Tolerating diet, Ambulating, Improving Review of Systems 10-point ROS is otherwise unremarkable Physical Examination - Vital Signs Temperature: 98.7 F Blood Pressure: 133/53 Pulse: 55 Respirations: 16 Pulse Ox (%): 93 - Physical Exam General: Alert, In no apparent distress HEENT: Atraumatic, PERRLA, EOMI Neck: Supple, JVD not distended Respiratory: Clear to auscultation bilaterally, Normal air movement Cardiovascular: Regular rate/rhythm, Normal S1 S2 Gastrointestinal: Normal bowel sounds, No tenderness Musculoskeletal: No tenderness Integumentary: No rashes Neurological: Normal speech, Normal tone, Normal affect Lymphatics: No axilla or inguinal lymphadenopathy - Studies Medications List Reviewed: Yes Assessment And Plan - Current Problems (Diagnosis) (1) CAD (coronary artery disease) Current Visit: Yes Status: Acute Plan: Coronary angiogram done today and shows ISR of RCA stent s/p PTCA continue plavix and aspirin (2) Atrial fibrillation Current Visit: Yes Status: Acute Plan: continue amiodarone. can resume Eliquis 5 mg po BID tonight (3) Diastolic heart failure Current Visit: Yes Status: Acute Plan: chronic, right heart cath shows mild elevated filling pressures give lasix 40 mg IV bid today and tomorrow, add Aldactone 25 mg daily continue coreg
--- NOTE | 2024-06-07 18:43 | P.PN ---
Date of Service: 06/07/24 Subjective Feeling well no new complaints Heart cath today, Stent to RCA ROS 10 point ROS as noted above, otherwise negative Physical Exam General: AAO x3, NAD HEENT: Atraumatic, Normocephalic, PERRLA Neck: Supple, 2+ carotid pulse no bruit Respiratory: Clear to auscultation bilaterally, symmetrical chest wall movement, on RA Cardiovascular: No edema, Normal pulses, NSR, Normal S1 S2, no murmur noted Capillary refill: <2 Seconds Gastrointestinal: Normal active bowel sounds, Soft and benign on palpation, nontender Musculoskeletal: No swelling, 2 + peripheral pulses Integumentary: No rashes Neurological: Normal speech, Normal tone Vitals Reviewed Problem list Chest pain rule out in a patient with CAD with stent (2022) S/P RCA stent Atrial fibrillation Hypokalemia Acid reflux Anxiety/depression Hyperlipidemia Hypertension Assessment and Plan Chest pain rule out in a patient with CAD with stent (2022) S/P RCA stent Atrial fibrillation- Normal sinus since admission -Chest x-ray report "No acute cardiopulmonary disease." -CT dissection reports "No aortic aneurysm or dissection identified. No pulmonary embolus. Patulous appearance of the distal sigmoid with a large diverticula containing inspissated stool. Consider further evaluation with colonoscopy to evaluate the etiology for the distal sigmoid distension at this location. No evidence of diverticulitis." -Continue home medication - EKG: No obvious ST segment changes - troponin 5.7, 8.4 - echocardiogram-EF 60-65%, Trace tricuspid regurg - Consult Cardiology - recommendations appreciated - S/P aspirin 324 mg PO x 1 in ED - Start daily baby aspirin and statin - Symptom control with PRN acetaminophen, nitroglycerin, morphine - continuous telemetry -TSH/FreeT4, A1C, lipid panel all WNL -aldactone 25 mg daily -lasix 40 mg IV BID -Continue coreg, plavix -Eliquis 5 mg PO BID Hypokalemia -k 3.2 -Replacement Protocol in place Acid reflux Anxiety/depression Hyperlipidemia Hypertension -Continue home medication DVT ppx SCD/lovenox Full code LOS 24 obs Discharge Plan: Home, likely dc tomorrow
[2024-06-07] MEDS: SPIRONOLACTONE 25 MG TABLET PO SCH (20:23)
[2024-06-07] MEDS: APIXABAN 5 MG TABLET PO SCH (20:23)
[2024-06-07] MEDS: FUROSEMIDE 40 MG/4 ML VIAL IV SCH (20:25)
--- NOTE | 2024-06-08 02:35 | OP ---
Date of Procedure: 06/07/2024 Surgeon: Valentino Diego Procedure Performed: 1.Selective coronary angiogram. 2.Percutaneous transluminal coronary angioplasty of the right coronary artery in-stent restenoses. 3.Right heart catheterization. Indication For Procedure: Acute on chronic heart failure and unstable angina. Complications: None. Estimated Blood Loss: Less than 50 cc. Sedation Time: 40 minutes with 3 of Versed and 100 of fentanyl. Access: Right common femoral artery, closed by manual compression; and right common femoral vein, cl osed by manual compression. Description Of Procedure: After risks and benefits and alternatives were explained to patient, patie nt agreed to proceed with the procedure and signed informed consent. The patient was brought back to the medical lab tech instructor, prepped and draped in sterile fashion. Time-out was performed. Sedation was administ ered. Next, the right common femoral artery access was obtained using ultrasound-guided micropunctur e technique. A 6-[place] sheath was introduced and right common femoral venous access was obtained. A 7-[place] sheath was introduced. Next, JL-4 catheter was advanced over J-wire to the selective kaur ogram of the left coronary system. That was later exchanged with a JR4 catheter for the right mcdonald ry angiogram. That catheter was later exchanged for a 3DRC, guide run-through wire, passed across th e lesions, pre-dilated the in-stent restenoses of the ostial to proximal RCA stent with an NC 3.0 mm balloon that was followed by a [place] 3.5 mm balloon at 12 atmospheres. The final angiogram showe d BESSY-3 flow. Catheter was removed over a J-wire and sheath was secured in place for manual gt hilario. Next, the Russell catheter was advanced to the RV and to the pulmonary arteries for filling press ures. At the end of procedure, both sheaths were secured in place and the patient was moved to [facility] in stable condition. Findings: 1.Left main, normal. 2.LAD, proximal diffuse 30% to 40% disease. Mild LI. 3.Left circ, mild LI. 4.RCA, has an ostial to proximal stent that looks underexpanded with mid stent portion 80% ISR. PTC A was done. Mid to distal mild luminal regularities. 5.Right heart findings are RA 14/13 with a mean of 11 mmHg. 6.RV 38/4, mean of 12 mmHg. 7.PA 86/17 with a mean of 25 mmHg. 8.Wedge of 15 mmHg. 9.Cardiac output is 5.1 L/minute by thermal. Assessment And Plan: 1.Significant in-stent restenoses of the ostial to proximal RCA stent that is underexpanded. PTCA d one. If the patient is asymptomatic, then plan for shockwave PCI to be done at [facility]. 2.Mild elevated filling pressure with normal cardiac output. 3.Aspirin 81 mg daily for life. 4.Plavix 75 mg daily for 12 months. 5.Okay to resume Eliquis tonight. 6.Continue aggressive medical treatment for CAD. 7.Continue gentle diuresis. COHEN/MODL Voice ID: [id number] Report ID: [id number]
[2024-06-08 06:21] VITALS: BMI 35.4
[2024-06-08 07:53] LABS: Absolute Monocytes 0.5 K/uL (0.1-1.3); Absolute Neutrophil 5.1 K/uL (1.8-8.0); Basophils % 0.6 % (0-1.3); Eosinophils % 0.7 % (0-4.4); Hematocrit 36.6 % (36.0-45.0); Hemoglobin 12.1 g/dL (12.0-15.0); Lymphocytes % 14.6 % (15.3-44.8); MCH 30.4 pg (27.0-35.0); MCHC 33.1 g/dL (32.0-36.0); MCV 91.7 fL (80-100); MPV 8.1 fL (7.6-11.3); Monocytes % 8.1 % (3.3-12.3); Platelets 176 thou/uL (152-406); RBC Red Blood Cell Count 3.99 M/uL (3.86-4.86); Red Cell Distribution Width 14.3 % (12.1-15.2)
[2024-06-08 08:07] LABS: Magnesium 1.9 mg/dL (1.6-2.4); Phosphorus 3.3 mg/dL (2.5-4.9)
[2024-06-08] MEDS: TICAGRELOR 90 MG TABLET PO SCH (08:55)
[2024-06-08 08:56] VITALS: BP 129/64
--- NOTE | 2024-06-08 09:07 | P.DS ---
Admission Date: 06/07/24 Discharge Date: 06/08/24 Disposition: ROUTINE DISCHARGE Discharge Condition: GOOD Reason for Admission: Chest pain r/o Brief History of Present Illness: Diagnosis Chest pain rule out in a patient with CAD with stent (2022) S/P PCI to RCA Atrial fibrillation Hypokalemia Acid reflux Anxiety/depression Hyperlipidemia Hypertension HPI 06/06/24 Dari Miguel is a 73 year old female with Pmhx acid reflux, anxiety, hyperlipidemia, CAD with stent (2022), hypertension, atrial fibrillation, depressive disorder, and anxiety who presents to the ED with worsening chest pain. She reports being in pre-op registering for a heart cath on with Dr. Coello when her chest pain began to worsen in intensity, substernal chest pain. She reports having continual chest pain since her Stent was placed last year. Initial troponin and EKG negative. Chest x-ray report "No acute cardiopulmonary disease." CT dissection reports "No aortic aneurysm or dissection identified. No pulmonary embolus. Patulous appearance of the distal sigmoid with a large diverticula containing inspissated stool. Consider further evaluation with colonoscopy to evaluate the etiology for the distal sigmoid distension at this location. No evidence of diverticulitis." Dari will be admitted to hospitalist service for further evaluation and treatment, Dr. Coello consulted. Hospital Course: Dari Miguel is a pleasant 74 year old female with a past medical history significant for acid reflux, anxiety, hyperlipidemia, CAD with stent (2022), hypertension, atrial fibrillation, depressive disorder, and anxiety who was admitted to the [facility] on 06/05/24 for chest pain. Dari presented to the ED after being at preop registration and experienced severe chest pain. She was registering for a heart cath on . During this admission, troponins and EKG remained negative, Cardiology consulted, and heart cath was performed on . Her stent to the RCA needed re-expansion and she remained one more night for further observation. She has tolerated PO diet, ambulating independently, Chest pain relieved, and hemodynamically stable for discharge. On 06/08/24, Dari was seen on morning rounds and deemed medically stable for discharge. Dari was discharged with instructions to schedule follow-up appointments with PCP and Dr. Coello. Dari was provided prescriptions for Brilinta and aldactone. Physical Exam General: Awake, alert, and oriented x3, NAD HEENT: Atraumatic, Normocephalic, PERRLA Neck: Supple, 2+ carotid pulse no bruit Respiratory: bilaterally Clear breath sounds, symmetrical chest wall movement, on RA Cardiovascular: NSR, Normal S1 S2, no murmur noted Capillary refill: <2 Seconds Gastrointestinal: Normal active bowel sounds, Soft on palpation, nontender Musculoskeletal: No swelling, 2 + peripheral pulses Integumentary: No rashes Neurological: Normal speech, Normal tone Vital Signs/Physical Exam: Temp Pulse Resp BP Pulse Ox 96.9 F 62 18 129/64 97 06/08/24 04:00 06/08/24 08:52 06/08/24 04:00 06/08/24 08:52 06/08/24 04:00 Laboratory Data at Discharge: WBC 6.70 thou/uL (4.3-10.9) 06/08/24 07:36 Hgb 12.1 g/dL (12.0-15.0) 06/08/24 07:36 Hct 36.6 % (36.0-45.0) 06/08/24 07:36 Plt Count 176 thou/uL (152-406) 06/08/24 07:36 PT 12.2 SECONDS (9.4-12.5) 06/05/24 10:35 INR 1.09 06/05/24 10:35 Sodium 140 mEq/L (136-145) 06/08/24 07:36 Potassium 3.0 mEq/L (3.5-5.1) L 06/08/24 07:36 BUN 16 mg/dL (7-18) 06/08/24 07:36 Creatinine 0.67 mg/dL (0.55-1.02) 06/08/24 07:36 Glucose 84 mg/dL (74-106) 06/08/24 07:36 Phosphorus 3.3 mg/dL (2.5-4.9) 06/08/24 07:36 Magnesium 1.9 mg/dL (1.6-2.4) 06/08/24 07:36 Triglycerides 100 mg/dL (<150) 06/06/24 04:41 Cholesterol 123 mg/dL (<200) 06/06/24 04:41 HDL Cholesterol 50 mg/dL (40-60) 06/06/24 04:41 Cholesterol/HDL Ratio 2.46 06/06/24 04:41 Home Medications: Atorvastatin Calcium [Lipitor] 40 mg PO BEDTIME 01/03/17 Furosemide [Lasix*] 20 mg PO DAILY 01/03/17 Amiodarone HCl 200 mg PO DAILY 05/25/23 Omeprazole [Prilosec] 40 mg PO DAILY 05/25/23 Amlodipine [Norvasc*] 10 mg PO DAILY 06/05/24 Aspirin Chewable [Aspirin Chewable*] 81 mg PO DAILY 06/05/24 Isosorbide Mononitrate [Isosorbide Mononitrate ER] 30 mg PO DAILY 06/05/24 Loratadine [Claritin*] 10 mg PO DAILYPRN PRN 06/05/24 Sertraline [Zoloft*] 100 mg PO DAILY 06/05/24 carvediloL [Coreg*] 12.5 mg PO BID 06/05/24 clonazePAM [Clonazepam] 0.5 mg PO BIDP PRN 06/05/24 Spironolactone [Aldactone*] 25 mg PO DAILY 30 Days #30 tab 06/08/24 Ticagrelor [Brilinta*] 90 mg PO BID 30 Days #60 tab 06/08/24 New Medications: Spironolactone [Aldactone*] 25 mg PO DAILY 30 Days #30 tab Ticagrelor [Brilinta*] 90 mg PO BID 30 Days #60 tab Physician Discharge Instructions: Dari Miguel was treated for chest pain, a heart cath was performed 06/07/24 with a re-expansion to the RCA. You will start taking brilinta in replace of plavix and that will be managed by cardiology in the future. Please follow up with Dr. Coello for continued heart management. 1. Please call and schedule a follow-up appointment with your PCP in 3-5 days - Please follow-up with your PCP for medication refills/adjustments 2. Please call and schedule a follow-up appointment with Dr. Coello in one week -He has started Brilinta 90 mg twice daily, he wants plavix stopped now that you are taking Brilinta 3. Continue heart healthy diet 4. activity restrictions, do not lift anything heavier than 10 pounds 5. Return to the ED if symptoms worsen New medications Brilinta 90 mg twice daily STOP medications Plavix will need to be stopped while taking Brilinta, do not take plavix anymore. Diet: AHA Followup: Roly Joseph MD [Primary Care Provider] - Travis Coello MD [ACTIVE - CAN ADMIT] - 1-2 Weeks
[2024-06-08] MEDS: ONDANSETRON 4 MG/2 ML VIAL IV ONE (09:47)
[2024-06-08 10:06] VITALS: O2SAT 94
[2024-06-08 10:09] VITALS: TEMP 97.8
--- NOTE | 2024-06-08 16:32 | PN ---
Date of Progress Note: 06/08/2024 Subjective: Seen at bedside, doing well. No further chest pain, status post PCI of the RCA. Review of Systems: No chest pain, shortness of breath, orthopnea, cough. No nausea, vomiting, diarrhea. All other syst ems reviewed are negative. Physical Examination: Vital Signs: Reviewed. Head and Neck: Pupils are equal, reactive to light. Intact eye movements. No JVD. No cervical lym phadenopathy. Neck is supple. Thyroid is not enlarged. Lungs: Clear to auscultation bilaterally. No rhonchi, wheezing, or crackles. No accessory muscle u se. Heart: Regular rate and rhythm. No extra sounds. Abdomen: Soft, nontender. Bowel sounds positive. No organomegaly. No masses or hernia. No rigidi ty or rebound. Extremities: No edema, clubbing, or cyanosis. Intact pulses. Skin: No rash. Neurologic: Alert, awake, and oriented x3. No acute focal deficits appreciated. Investigations: BUN 16, creatinine 0.67, and hemoglobin is 12.1. Assessment/recommendations: 1.Unstable angina, culprit was right coronary artery proximal stent in-stent restenosis status post balloon angioplasty. Given the fact that she was on Plavix, probably she is resistant to it. Discon tinue it and use Brilinta 90 mg twice a day as well as baby aspirin 81 mg daily. To be discharged on that. Follow up with me in the office in 4 weeks. 2.Atrial fibrillation, on amiodarone. Continue current management as well as anticoagulation. She will take Brilinta and Plavix and anticoagulant for a month and then drop the aspirin after that. 3.Diastolic heart failure. Appears to be euvolemic. From cardiology standpoint, patient can be released. Follow up with me or Dr. Diego in the office in 4 weeks. SR/MODL Voice ID: [id number] Report ID: [id number]
[2024-06-08] MEDS ORDERED: FUROSEMIDE 40 MG/4 ML VIAL IV SCH (18:26)
== END 2024-06-08 12:30 | disposition home or self-care (01) | DRG 251 ==
LOC: ER 10:20 → 2ND 16:06 → OBSVTOIN 06-07 13:52
PROVIDERS: ADMIT Internal Medicine; ATTEND Internal Medicine
PROC: 02703ZZ Dilation of Coronary Artery, One Artery, Percutaneous Approach (ICD-10-PCS; principal; 2024-06-07)
PROC: 4A023N6 Measurement of Cardiac Sampling and Pressure, Right Heart, Percutaneous Approach (ICD-10-PCS; 2024-06-07)
PROC: B2111ZZ Fluoroscopy of Multiple Coronary Arteries using Low Osmolar Contrast (ICD-10-PCS; 2024-06-07)
DX: T82.855A Stenosis of coronary artery stent, initial encounter (principal); I50.32 Chronic diastolic (congestive) heart failure; I25.110 Atherosclerotic heart disease of native coronary artery with unstable angina pectoris; I11.0 Hypertensive heart disease with heart failure; E87.6 Hypokalemia; F32.A Depression, unspecified; E78.5 Hyperlipidemia, unspecified; F41.9 Anxiety disorder, unspecified; I48.91 Unspecified atrial fibrillation; K21.9 Gastro-esophageal reflux disease without esophagitis; Z95.5 Presence of coronary angioplasty implant and graft; Z79.82 Long term (current) use of aspirin; Z79.02 Long term (current) use of antithrombotics/antiplatelets; Z91.018 Allergy to other foods; Z79.899 Other long term (current) drug therapy; Y83.8 Other surgical procedures as the cause of abnormal reaction of the patient, or of later complication, without mention of misadventure at the time of the procedure
CPT/HCPCS: 36415; 71045; 71275; 74175; 76937; 80048; 80061; 81001; 82947; 83036; 83735; 83880; 84100; 84439; 84443; 84484; 85025; 85347; 85610; 92920; 93005; 93306; 93460; 99152; 99153; 99285; C1725; C1893; G0378; J0461; J1650; J1940; J2001; J2250; J2405; J3010; J3480; J7030; J7040; Q9967

== ENCOUNTER 2024-07-09 17:26 | Inpatient (IN) | payer OTHER ==
--- OUTSIDE RECORDS SUMMARY | 2024-07-09 17:34 | XMS REPORT | Continuity of Care Document ---
Author Name Unknown Address [address] [facility] [address] [place] [address] [facility] thconnect Address [address] [facility] [address] [place] [address] Care Team Providers Care Straightener Name Role Phone Zoë Royal Primary Care Physician JENA JOSEPH Attending Clinician DELORIS Chowdhury Attending Clinician OBDULIO San Attending Clinician Unavailable OBDULIO JOE Attending Clinician Unavailable Obdulio Joe DO Attending Clinician [phone] Jena Joseph MD Attending Clinician +- [phone] Doctor Unassigned, [place] Attending Clinician [facility] Attending Clinician Unavailable Deloris Guillermo MD Attending Clinician +- [phone] Only, Adc Test Attending Clinician Unavailable JENA JOSEPH Admitting Clinician DELORIS Chowdhury Admitting Clinician OBDULIO San Admitting Clinician Unavailable Jena Joseph MD Admitting Clinician +- [phone] Deloris Guillermo MD Admitting Clinician +- [phone] Payers Payer Name Policy Type Policy Number Effective Date Expirati on Date Source [facility] [id number] 2021 00:00:00 [employer] [id number] 2018 00:00:00 Problems Condition Name Condition Details Condition Category Status Onset Date Resolution Date Last Treatment Date Treating Clinician Comments Source Obesity (BMI 30-39.9) Obesity (BMI 30-39.9) Disease Active 9- 00:00: 00 [facility] No known active problems No known active problems Disease [facility] Allergies, Adverse Reactions, Alerts Allergy Name Allergy Type Status Severity Reaction(s) Onset Date Inactive Date Treating Clinician Comments Source tree nuts (Not Checked) Propensi ty to adverse reaction to drug Active 8-16 00:00: 00 Candido Ford Tree Nuts Propensi ty to adverse reaction s Active Swelling 6-23 00:00: 00 [facility] TREE NUTS Food Active Swelling 6-23 00:00: 00 [facility] pecan nut Propensi ty to adverse reaction to drug Inactiv e 1-17 00:00: 00 Candido Ford Social History Social Habit Start Date Stop Date Quantity Comments Source [facility] Exposure to SARS-CoV-2 (event) Not sure [facility] Alcoholic beverage intake 2023-08-05 00:00:00 2023-08-05 00:00:00 Lifetime non-drinker (finding) [facility] History of Social function 2023-08-04 00:00:00 2023-08-04 00:00:00 [facility] Alcohol intake 2023-08-01 00:00:00 2023-08-01 00:00:00 Lifetime non-drinker (finding) [facility] Tobacco use and exposure 2023-07-28 00:00:00 2023-07-28 00:00:00 Smokeless tobacco non-user [facility] Sex assigned at 1950 00:00:00 1950 00:00:00 [facility] Smoking Status Start Date Stop Date Source Never smoked tobacco [facility] Medications Ordered Medication Name Filled Medication Name Start Date Stop Date Current Medication? Ordering Clinician Indication Dosage Frequency Signature (SIG) Comments Components Source omeprazole 40 mg capsule,del ayed release 8- 00:00: 00 Yes 1mg Candido Ford carvedilol 12.5 mg tablet 8-20 00:00: 00 Yes mg Candido Ford iopamidol (ISOVUE 370-500 mL) injection 85 mL 16 23:00: 00 06-15 23:15 :00 No [id number] 85mL 85 mL, Intravenou s, ONCE, 1 dose, On Tue06/15/24 at 1815, Routine [facility] ketorolac (TORADOL) injection 15 mg 06-15 22:00: 00 06-15 21:47 :00 No 15mg 15 mg, Slow IV Push, ONCE, 1 dose, On Tue06/15/24 at 1700, Routine [facility] dexamethaso ne sod phos PF injection 10 mg 06-15 21:15: 00 06-15 21:47 :00 No 10mg 10 mg, Slow IV Push, ONCE, 1 dose, On Tue06/15/24 at 1615, 1 mL [facility] Xarelto 20 mg tablet 16 00:00: 00 Yes mg Candido Ford spironolact one 25 mg tablet 8-09 00:00: 00 Yes mg Candido Ford Brilinta 90 mg tablet 8-09 00:00: 00 Yes mg Candido Ford sertraline 100 mg tablet 7-18 00:00: 00 Yes mg Candido Ford FUROSEMIDE 40 MG 4-22 00:00: 00 Yes [...] Yes Candido Ford AMLODIPINE BESYLATE 10 MG 2-14 00:00: 00 Yes Candido Ford TAKE 1 TABLET 3 TIMES DAILY UNTIL GONE. 2-14 00:00: 00 03-12 00:00 :00 No 500 Candido Ford TAKE 1 TABLET BY MOUTH TWICE DAILY WITH FOOD 18 00:00: 00 Yes Candido Ford NITROFURANT OIN MONO-MCR 100 MG 11-04 00:00: 00 Yes Candido Ford TAKE 1 CAPSULE TWICE DAILY. 11-04 00:00: 00 03-12 00:00 :00 No 100 Candido Ford TAKE 1 & 1/2 (ONE & ONE-HALF) TABLETS BY MOUTH ONCE DAILY - 00:00: 00 Yes Candido Ford TAKE 1 TABLET BY MOUTH ONCE DAILY NEEDED 11-03 00:00: 00 Yes Candido Fodr TAKE 1 TABLET BY MOUTH ONCE DAILY [...] Ford CLOPIDOGREL 75MG 2022-10 00:00: 00 Yes [id number] Candido Ford SERTRALINE 50MG 2022-10 00:00: 00 Yes Candido Ford INJECT 0.3ML INTRAMUSCUL BETSY DIRECTED. 2022-10 00:00: 00 03-12 00:00 :00 No 303 Candido Ford EPINEPH(E)2 P 0.3MG KIT 2022-10 00:00: 00 03-12 00:00 :00 No Candido Ford TAKE 1 TABLET BY MOUTH ONCE DAILY 2022-10 0-20 00:00: 00 Yes Candido Ford TAKE 1 TABLET BY MOUTH ONCE DAILY NEEDED 2022-10 0- 00:00: 00 Yes Candido Ford SERTRALINE 50MG 2022-10 0-10 00:00: 00 03-12 00:00 :00 No Candido Ford neomycin-po lymyxin-dex amethasone (MAXITROL) 3.5 mg/g-10,000 unit/g-0.1 % ophthalmic ointment 2022-10 0-05 13:22: 00 08-04 13:35 :45 No PRN, Starting on Meri 10 at 0822, Until Meri 08/04/23 at 0835, Routine, Intra-op [facility] sodium chloride (NS) injection 2022-10 0-05 13:21: 00 08-04 13:35 :45 No PRN, Starting on Meri 08/04/23 at 0821, Until Meri 08/04/23 at 0835, Routine, Intra-op [facility] gentamicin injection 2022-10 0-05 13:21: 00 08-04 13:35 :45 No PRN, Starting on Meri 08/04/23 at 0821, Until Meri 08/04/23 at 0835, [facility]OSTIN, [facility] dexamethas[facility] (DECADRON PHOSPHATE) injection 2022-10 0-05 13:21: 00 08-04 13:35 :45 No PRN, Starting on Meri 08/04/23 at 0821, Until Meri 08/04/23 at 0835, Routine, Intra-op [facility] ceFAZolin (ANCEF) injection 2022-10 0-05 13:21: 00 08-04 13:35 :45 No PRN, Starting on Meri 08/04/23 at 0821, Until Meri 08/04/23 at 0835, JOSTIN, Intra-op [facility] EPINEPHrine (PF) 1:1,000 (1 mg/mL) (ADRENALIN (PF)) injection 2022-10 005 13:09: 00 Yes PRN, Starting on Meri 08/04/23 at 0809, Until Discontinu ed, Routine, Intra-op [facility] chondroitin sulf-sod hyaluronate (DUOVISC VISCO ELASTIC) intraocular injection 2022-10 0-05 13:09: 00 08-04 13:35 :45 No PRN, Starting on Meri 08/04/23 at 0809, Until Meri 08/04/23 at 0835, Routine, Intra-op [facility] balanced salt soln no.2 irrig. (BSS) ophthalmic solution 2022-10 0 13:09: 00 08-04 13:35 :45 No PRN, Starting on Meri 08/04/23 at 0809, Until Meri 08/04/23 at 0835, Routine, Intra-op [facility] water for irrigation irrigation solution 2022-10 13:07: 00 08-04 13:35 :45 No PRN, Starting on Meri 08/04/23 at 0807, Until Meri 08/04/23 at 0835, Routine, Intra-op [facility] tetracaine (PONTOCAINE ) 0.5 % ophthalmic drops 2022-10 13:05: 00 08-04 13:35 :45 No PRN, Starting on Meri 08/04/23 at 0805, Until Meri 08/04/23 at 0835, Routine, Intra-op [facility] eye block syringe 11 mL 2022-10 13:04: 00 08-04 13:35 :45 No PRN, Starting on Meri 08/04/23 at 0804, Until Meri 08/04/23 at 0835, Intra-op [facility] cyclopent 1%-tropic 1%-phenyl 2.5%-ketor 0.5% (MYDRIATIC #5) ophthalmic solution syringe 0.5 mL 2022-10 11:30: 00 08-04 12:00 :00 No .5mL 0.5 mL, Right Eye, ONCE, 1 dose, On Meri 08/04/23 at 0630, Routine, DSU Pre-op [facility] omeprazole 40 mg capsule 2022-10 09:04: 07 Yes 40mg Take 1 capsule by mouth in the morning. [facility] furosemide 20 mg tablet 2022-10 09:04: 07 Yes 20mg Take 1 tablet by mouth in the morning. [facility] metoprolol succinate XL 25 mg 24 hr tablet 2022-10 09:04: 07 Yes 25mg Take 1 tablet by mouth in the morning. [facility] atorvastati n 40 mg tablet 2022-10 09:04: 07 Yes 40mg Take 1 tablet by mouth at bedtime. [facility] clopidogreL 75 mg tablet 2022-10 09:04: 07 Yes 75mg Take 1 tablet by mouth in the morning. [facility] ALPRAZolam (XANAX) 0.25 mg tablet 2022-10 09:04: 07 Yes .25mg Take 1 tablet by mouth in the morning. [facility] diphenhydrA MINE (BENADRYL) 25 mg capsule 2022-10 09:04: 07 Yes 25mg Take 1 capsule by mouth every 6 (six) hours as needed for Allergies. [facility] clonazePAM 0.5 mg tablet 2022-10 09:04: 07 Yes .5mg Take 1 tablet by mouth as needed. [facility] SERTraline 25 mg tablet 2022-10 09:04: 07 Yes 25mg Take 1 tablet by mouth at bedtime. [facility] amiodarone 200 mg tablet 2022-10 09:04: 07 Yes 200mg Take 1 tablet by mouth in the morning. [facility] Olopatadine (PATADAY ONCE DAILY RELIEF) 0.2 % ophthalmic drops 2022-10 09:04: 07 Yes 1[drp] Place 1 Drop in each eye as needed. [facility] omeprazole 40 mg capsule 2022-10 12:38: 16 Yes 40mg Take 1 capsule by mouth in the morning. [facility] furosemide 20 mg tablet 2022-10 12:38: 16 Yes 20mg Take 1 tablet by mouth in the morning. [facility] metoprolol succinate XL 25 mg 24 hr tablet 2022-10 12:38: 16 Yes 25mg Take 1 tablet by mouth in the morning. [facility] atorvastati n 40 mg tablet 2022-10 12:38: 16 Yes 40mg Take 1 tablet by mouth at bedtime. [facility] clopidogreL 75 mg tablet 2022-10 12:38: 16 Yes 75mg Take 1 tablet by mouth in the morning. [facility] ALPRAZolam (XANAX) 0.25 mg tablet 2022-10 12:38: 16 Yes .25mg Take 1 tablet by mouth in the morning. [facility] diphenhydrA MINE (BENADRYL) 25 mg capsule 2022-10 12:38: 16 Yes 25mg Take 1 capsule by mouth every 6 (six) hours as needed for Allergies. [facility] clonazePAM 0.5 mg tablet 2022-10 12:38: 16 Yes .5mg Take 1 tablet by mouth as needed. [facility] SERTraline 25 mg tablet 2022-10 12:38: 16 Yes 25mg Take 1 tablet by mouth at bedtime. [facility] amiodarone 200 mg tablet 2022-10 12:38: 16 Yes 200mg Take 1 tablet by mouth in the morning. [facility] Olopatadine (PATADAY ONCE DAILY RELIEF) 0.2 % ophthalmic drops 2022-10 12:38: 16 Yes 1[drp] Place 1 Drop in each eye as needed. [facility] neomycin-po lymyxin-dex amethasone (MAXITROL) 3.5 mg/g-10,000 unit/g-0.1 % ophthalmic ointment 07-28 13:58: 00 07-28 14:28 :03 No PRN, Starting on Meri 07/28/23 at 0858, Until Meri 07/28/23 at 0928, Routine, Intra-op [facility] sodium chloride (NS) injection 07-28 13:56: 00 Yes PRN, Starting on Meri 07/28/23 at 0856, Until Discontinu ed, Routine, Intra-op [facility] gentamicin injection 07-28 13:56: 00 07-28 14:28 :03 No PRN, Starting on Meri 07/28/23 at 0856, Until Meri 07/28/23 at 09, JOSTIN, [facility] dexamethaso ne (DECADRON PHOSPHATE) injection 07-28 13:56: 00 07-28 14:28 :03 No PRN, Starting on Meri 07/28/23 at 0856, Until Meri 07/28/23 at 09, Routine, [facility] ceFAZolin (ANCEF) injection 07-28 13:56: 00 07-28 14:28 :03 No PRN, Starting on Meri 07/28/23 at 0856, Until Meri 07/28/23 at 09, JOSTIN, Intra-op [facility] EPINEPHrine (PF) 1:1,000 (1 mg/mL) (ADRENALIN (PF)) injection 07-28 13:39: 00 07-28 14:28 :03 No PRN, Starting on Meri 07/28/23 at 0839, Until Meri 07/28/23 at 09, Routine, Intra-op [facility] chondroitin sulf-sod hyaluronate (DUOVISC VISCO ELASTIC) intraocular injection 07-28 13:39: 00 07-28 14:28 :03 No PRN, Starting on Meri 07/28/23 at 0839, Until Meri 07/28/23 at 09, Routine, Intra-op [facility] balanced salt soln no.2 irrig. (BSS) ophthalmic solution 07-28 13:39: 00 07-28 14:28 :03 No PRN, Starting on Meri 07/28/23 at 0839, Until Meri 07/28/23 at 09, Routine, [facility] for [facility] irrigation solution 07-28 13:37: 00 07-28 14:28 :03 No PRN, Starting on Meri 07/28/23 at 0837, Until Meri 07/28/23 at 0928, Routine, Intra-op [facility] tetracaine (PONTOCAINE ) 0.5 % ophthalmic drops 07-28 13:35: 00 07-28 14:28 :03 No PRN, Starting on Meri 07/28/23 at 0835, Until Meri 07/28/23 at 0928, Routine, Intra-op [facility] eye block syringe 11 mL 07-28 13:34: 00 07-28 14:28 :03 No PRN, Starting on Meri 07/28/23 at 0834, Until Meri 07/28/23 at 0928, Intra-op [facility] cyclopent 1%-tropic 1%-phenyl 2.5%-ketor 0.5% (MYDRIATIC #5) ophthalmic solution syringe 0.5 mL 07-28 12:45: 00 07-28 12:41 :00 No .5mL 0.5 mL, Left Eye, ONCE, 1 dose, On Meri 07/28/23 at 0745, Routine, DSU Pre-op [facility] lactated ringers IV infusion 1,000 mL 07-28 12:45: 00 07-28 12:55 :00 No 1000mL at 42 mL/hr, 1,000 mL, IV Infusion, ONCE, 1 dose, On Meri 07/28/23 at 0745, Routine, DSU Pre-op [facility] omeprazole 40 mg capsule 07-28 09:29: 17 Yes 40mg Take 1 capsule by mouth in the morning. [facility] furosemide 20 mg tablet 07-28 09:29: 17 Yes 20mg Take 1 tablet by mouth in the morning. [facility] metoprolol succinate XL 25 mg 24 hr tablet 07-28 09:29: 17 Yes 25mg Take 1 tablet by mouth in the morning. [facility] atorvastati n 20 mg tablet 07-28 09:29: 17 Yes 40mg Take 2 tablets by mouth at bedtime. [facility] clopidogreL 75 mg tablet 07-28 09:29: 17 Yes 75mg Take 1 tablet by mouth in the morning. [facility] ALPRAZolam (XANAX) 0.25 mg tablet 07-28 09:29: 17 Yes .25mg Take 1 tablet by mouth in the morning. [facility] diphenhydrA MINE (BENADRYL) 25 mg capsule 07-28 09:29: 17 Yes 25mg Take 1 capsule by mouth every 6 (six) hours as needed for Allergies. [facility] clonazePAM 0.5 mg tablet 07-28 09:29: 17 Yes .5mg Take 1 tablet by mouth as needed. [facility] SERTraline 25 mg tablet 07-28 09:29: 17 Yes 25mg Take 1 tablet by mouth at bedtime. [facility] amiodarone 200 mg tablet 07-28 09:29: 17 Yes 200mg Take 1 tablet by mouth in the morning. [facility] Olopatadine (PATADAY ONCE DAILY RELIEF) 0.2 % ophthalmic drops 07-28 09:29: 17 Yes 1[drp] Place 1 Drop in each eye as needed. [facility] olopatadine (PAZEO) 0.7 % Drop 07-28 09:00: 29 07-28 00:00 :00 No 1[drp] Place 1 Drop in each eye as needed (allergies ). [facility] PRED ACETATE 1% OP SELIN 07-19 00:00: 00 03-12 00:00 :00 No Candido Ford PROLENSA 0.07% YI 07-19 00:00: 00 03-12 00:00 :00 Judith Ford INSTILL 1 DROP INTO LEFT EYE THE NIGHT BEFORE AND THE MORNING OF SURGERY THEN THREE TIMES DAILY FOR 1 WEEK 07-19 00:00: 00 03-12 00:00 :00 Judith Ford OMEPRAZOLE 40MG 07-14 00:00: 00 Yes [id number] Candido Ford TAKE 1 TABLET BY MOUTH ONCE DAILY AT DINNER 07-06 00:00: 00 03-12 00:00 :00 No Candido Ford TAKE 1 TABLET BY MOUTH ONCE DAILY NEEDED - 00:00: 00 03-12 00:00 :00 No Candido Ford ATORVASTATI N 40MG 8-06 00:00: 00 03-12 00:00 :00 No [id number] Candido Ford FUROSEMIDE 20MG 0 7-24 00:00: 00 03-12 00:00 :00 No Candido Ford AMIODARONE 200MG 0 7-24 00:00: 00 03-12 00:00 :00 No Candido Ford AZITHROMYCI N 250MG - 00:00: 00 03-12 00:00 :00 No Candido Ford TAKE 10 ML EVERY 12 HOURS. - 00:00: 00 03-12 00:00 :00 No [id number] Candido Ford TAKE 2 TABLETS ON DAY 1 THEN TAKE 1 TABLET A DAY FOR 4 DAYS. -18 00:00: 00 03-12 00:00 :00 No 250 Candido Ford FUROSEMIDE 20MG 4-27 00:00: 00 03-12 00:00 :00 No Candido Ford AMIODARONE 200MG 2022-0 4-27 00:00: 00 03-12 00:00 :00 No [id number] Candido Justin Ford AMOXICILLIN 500MG 0 3-22 00:00: 00 03-12 00:00 :00 No [id number] Candido Justin Ford CLOPIDOGREL 75MG 2022-0 3-14 00:00: 00 03-12 00:00 :00 No [id number] Candido Justin Ford AMOXICILLIN 500MG 0 2-15 00:00: 00 03-12 00:00 :00 No Candido Justin Ford ATORVASTATI N 40MG 2022-0 2-14 00:00: 00 03-12 00:00 :00 No [id number] Candido Ford ATORVASTATI N 40MG -31 00:00: 00 03-12 00:00 :00 No Candido Ford BUSPIRONE 10MG - 00:00: 00 03-12 00:00 :00 No [id number] Candido Ford TAKE 1 TABLET BY MOUTH ONCE DAILY - 00:00: 00 03-12 00:00 :00 No Candido Ford TAKE 2 TABLETS ON DAY 1 THEN TAKE 1 TABLET A DAY FOR 4 DAYS. 1-24 00:00: 00 03-12 00:00 :00 No 250 Candido Ford FLUOROMETHO L 0.1% OP SELIN 2021-10 2 00:00: 00 03-12 00:00 :00 No 100 Candido Ford OMEPRAZOLE 40MG 2021-10 2- 00:00: 00 Yes Candido Ford TAKE 1 CAPSULE BY MOUTH IN THE MORNING 30 MINUTES BEFORE BREAKFAST 2021-10 00:00: 00 Yes Candido Ford CLOPIDOGREL 75MG 2021-10 2 00:00: 00 Yes Candido Ford INSTILL 1 DROP INTO EACH EYE TWICE DAILY 2021-10- 00:00: 00 03-12 00:00 :00 No Candido Ford AMIODARONE 200MG 2021-10 1- 00:00: 00 Yes Candido Ford TAKE 1 TABLET BY MOUTH ONCE DAILY 2021-10- 00:00: 00 Yes Candido Ford FUROSEMIDE 20MG 2021-10 00:00: 00 03-12 00:00 :00 No Candido Ford TIZANIDINE 2MG 2021-10 0- 00:00: 00 03-12 00:00 :00 No 2000 Candido Ford OMEPRAZOLE 40MG 07-13 00:00: 00 Yes [id number] Candido Ford TAKE 1 TABLET BY MOUTH NIGHTLY 06-16 00:00: 00 Yes 10 Candido Ford TAKE 1 TABLET BY MOUTH ONCE DAILY - 00:00: 00 Yes 40 Candido Ford FUROSEMIDE 20MG - 00:00: 00 00:00 :00 No [id number] Candido Ford amiodarone 200 mg tablet 2-0 8-10 00:00: 00 Yes 1mg Candido Anderson Logan &lt 2022-0 8-10 00:00: 00 Yes 10 Candido Justin Logan &lt 2022-0 8-10 00:00: 00 Yes Cnadido F Logan Dose Unknown 2-0 8-10 00:00: 00 Yes Candido Anderson Logan &lt 2022-0 8-10 00:00: 00 Yes 20 Candido Anderson Logan &lt 2022-0 8-10 00:00: 00 Yes 75 Candido Anderson Logan &lt 2022-0 8-10 00:00: 00 Yes 5 Candido Anderson Logan &lt 2022-0 8-10 00:00: 00 Yes 4 Candido F Logan Dose Unknown 2021-0 8-10 00:00: 00 Yes Candido Ford &lt 2022-0 7-27 00:00: 00 Yes 4 Candido Anderson Logan &lt 2022-0 7-27 00:00: 00 Yes 75 Candido Ford TAKE 1 CAPSULE BY MOUTH ONCE DAILY FOR 5 DAYS 2021-0 7-27 00:00: 00 Yes 60 Candido Anderson Logan &lt 2022-0 7-27 00:00: 00 Yes 200 Candido Ford buspirone 10 mg tablet 2021-0 7-18 00:00: 00 Yes 1mg Candido Ford &lt 2022-0 7-11 00:00: 00 Yes 4 Candido Ford BUSPIRONE HYDROCHLORI DE 10MG 2021-0 7-11 00:00: 00 03-12 00:00 :00 No [id number] Candido Ford TAKE BY MOUTH DIRECTED ON INSIDE OF PACKAGE 2021-0 6-28 00:00: 00 Yes Candido F Logan Dose Unknown 2-0 6-28 00:00: 00 Yes Candido Ford &lt 2022-0 6-27 00:00: 00 Yes Candido Justin Logan &lt 2022-0 6-27 00:00: 00 Yes Candido Ford CLOPIDOGREL 75MG 2-0 6-16 00:00: 00 Yes [id number] Candido Ford METHYLPREDN ISOLONE DOSE P 4MG DPAK 2-0 5-19 00:00: 00 Yes 4000 Candido Ford diphenoxyla te-atropine 2.5 mg-0.025 mg tablet 4-06 00:00: 00 Yes 1mg Candido Ford ondansetron HCl 4 mg tablet 4-06 00:00: 00 Yes 1mg Candido Ford TIZANIDINE HCL 2MG 0 3-19 00:00: 00 Yes 2000 Candido Ford ATORVASTATI N CALCIUM 40MG 3-17 00:00: 00 Yes [id number] Candido Ford Flonase Allergy Relief 50 mcg/actuati on nasal spray,suspe nsion 3-04 00:00: 00 Yes 2mcg/ac tuation Candido Ford Dose Unknown 3-04 00:00: 00 Yes Candido Ford Dose Unknown 3-04 00:00: 00 Yes Candido Ford Dose Unknown 3-04 00:00: 00 Yes Candido Ford Dose Unknown 3-04 00:00: 00 Yes Candido Ford Dose Unknown 3-04 00:00: 00 Yes Candido Ford USE 2 SPRAY(S) IN EACH NOSTRIL ONCE DAILY 0 3-04 00:00: 00 Yes Candido Ford buspirone 10 mg tablet 2-22 00:00: 00 Yes 1mg Candido Ford TIZANIDINE HCL 2MG 2-17 00:00: 00 Yes 1999 Candido Ford TAKE 1 TABLET BY MOUTH ONCE DAILY 2-15 00:00: 00 Yes Candido Ford clopidogrel 75 mg tablet 2-11 00:00: 00 Yes 1mg Candido Ford metoprolol tartrate 25 mg tablet 2-11 00:00: 00 Yes 1mg Candido Ford furosemide 20 mg tablet 2-11 00:00: 00 Yes 1mg Candido Ford atorvastati n 40 mg tablet 2-11 00:00: 00 Yes 1mg Candido Ford ibuprofen 400 mg tablet 0 2-11 00:00: 00 Yes 1mg Candido Ford omeprazole 40 mg capsule,del ayed release 12-11 00:00: 00 Yes 1mg Candido Ford buspirone [...] Ford duloxetine 60 mg capsule,del ayed release 11-04 00:00: 00 Yes 1mg Candido Ford Lasix 20 mg tablet 06-16 00:00: 00 Yes 1mg Candido Ford omeprazole 20 mg capsule,del ayed release 05-08 00:00: 00 Yes 1mg Candido Ford duloxetine 30 mg capsule,del ayed release 05-08 00:00: 00 Yes 1mg Candido Ford omeprazole 40 mg capsule 04-24 17:24: 56 Yes 40mg Take 40 mg by mouth daily. [facility] furosemide 20 mg tablet 04-24 17:24: 56 Yes 20mg Take 20 mg by mouth daily. [facility] metoprolol succinate XL 25 mg 24 hr tablet 04-24 17:24: 56 Yes 1{tbl} Take 1 tablet by mouth daily. [facility] atorvastati n 20 mg tablet 04-24 17:24: 56 Yes 20mg Take 20 mg by mouth at bedtime. [facility] clopidogreL 75 mg tablet 04-24 17:24: 56 Yes 75mg Take 75 mg by mouth daily. [facility] ALPRAZolam (XANAX) 0.25 mg tablet 04-24 17:24: 56 Yes .25mg Take 0.25 mg by mouth daily. [facility] diphenhydrA MINE (BENADRYL) 25 mg capsule 04-24 17:24: 56 Yes 25mg Take 25 mg by mouth every 6 (six) hours as needed for Allergies. [facility] olopatadine (PAZEO) 0.7 % Drop 04-24 17:24: 56 Yes 1[drp] Place 1 Drop in each eye as needed (allergies ). [facility] water for irrigation irrigation solution 04-24 14:24: 00 Yes PRN, Starting Meri 04/24/20 at 0924, Until Discontinu ed, Routine, Intra-op [facility] simethicone (GAS RELIEF (SIMETHICON E)) 40 mg/0.6 mL drops 04-24 14:24: 00 Yes PRN, Starting Meri 04/24/20 at 0924, Until Discontinu ed, Routine, Intra-op [facility] lactated ringers IV infusion 1,000 mL 04-24 12:45: 00 04-24 12:37 :00 No 1000mL at 20 mL/hr, 1,000 mL, IV Infusion, ONCE, 1 dose, Meri 04/24/20 at 0745, Routine, DSU Pre-op [facility] clopidogreL 75 mg tablet 04-22 19:13: 39 Yes 75mg Take 75 mg by mouth daily. [facility] ALPRAZolam (XANAX) 0.25 mg tablet 04-22 19:13: 39 Yes .25mg Take 0.25 mg by mouth daily. [facility] diphenhydrA MINE (BENADRYL) 25 mg capsule 04-22 19:13: 39 Yes 25mg Take 25 mg by mouth every 6 (six) hours as needed for Allergies. [facility] olopatadine (PAZEO) 0.7 % Drop 04-22 19:13: 39 Yes 1[drp] Place 1 Drop in each eye as needed (allergies ). [facility] atorvastati n 20 mg tablet 04-22 19:13: 38 Yes 20mg Take 20 mg by mouth at bedtime. [facility] omeprazole 40 mg capsule 04-22 19:13: 38 Yes 40mg Take 40 mg by mouth daily. [facility] furosemide 20 mg tablet 04-22 19:13: 38 Yes 20mg Take 20 mg by mouth daily. [facility] metoprolol succinate XL 25 mg 24 hr tablet 04-22 19:13: 38 Yes 1{tbl} Take 1 tablet by mouth daily. [facility] famotidine 20 mg tablet 11-18 00:00: [...] Moderna COVID-19 Vaccine 2021-10-21 00:00:00 Completed Candido Ford Influenza, seasonal, inj Influenza, seasonal, inj 2021-08-28 00:00:00 Completed Candido Ford Moderna COVID-19 Vaccine Moderna COVID-19 Vaccine 2021-01-06 00:00:00 Completed Candido Justin Logan Moderna COVID-19 Vaccine Moderna COVID-19 Vaccine 2020-12-10 00:00:00 Completed Candido Ford Vital Signs Vital Name Observation Time Observation Value Comments [facility] Systolic blood pressure 2024-06-16 02:45:00 146 mm[Hg] [facility] Diastolic blood pressure 2024-06-16 02:45:00 93 mm[Hg] [facility] Heart rate 2024-06-16 02:45:00 65 /min [facility] Body temperature 2024-06-16 02:45:00 36.83 [facility] Respiratory rate 2024-06-16 02:45:00 20 /min [facility] Oxygen saturation in Arterial blood by Pulse oximetry 2024-06-16 02:45:00 99 /min [facility] Body height 2024-06-15 21:14:00 152.4 cm [facility] Body weight 2024-06-15 21:14:00 84.369 kg [facility] BMI 2024-06-15 21:14:00 36.33 kg/m2 [facility] Heart rate 2023-08-04 13:43:00 63 /min [facility] Respiratory rate 2023-08-04 13:43:00 18 /min [facility] Oxygen saturation in Arterial blood by Pulse oximetry 2023-08-04 13:43:00 96 /min [facility] Systolic blood pressure 2023-08-04 13:42:00 171 mm[Hg] [facility] Diastolic blood pressure 2023-08-04 13:42:00 62 mm[Hg] [facility] Body temperature 2023-08-04 13:28:00 36.67 Basia [facility] Body height 2023-08-01 17:00:00 152.4 cm [facility] Body weight 2023-08-01 17:00:00 86.183 kg [facility] BMI 2023-08-01 17:00:00 37.11 kg/m2 [facility] Heart rate 2023-08-04 13:39:00 60 /min [facility] Respiratory rate 2023-08-04 13:39:00 20 /min [facility] Oxygen saturation in Arterial blood by Pulse oximetry 2023-08-04 13:39:00 97 /min [facility] Systolic blood pressure 2023-08-04 13:37:00 173 mm[Hg] [facility] Diastolic blood pressure 2023-08-04 13:37:00 53 mm[Hg] [facility] Body temperature 2023-08-04 13:28:00 36.67 Basia [facility] Body height 2023-08-01 17:00:00 152.4 cm [facility] Body weight 2023-08-01 17:00:00 86.183 kg [facility] BMI 2023-08-01 17:00:00 37.11 kg/m2 [facility] Systolic blood pressure 2023-07-28 14:15:00 193 mm[Hg] [facility] Diastolic blood pressure 2023-07-28 14:15:00 52 mm[Hg] [facility] Heart rate 2023-07-28 14:15:00 57 /min [facility] Respiratory rate 2023-07-28 14:15:00 21 /min [facility] Oxygen saturation in Arterial blood by Pulse oximetry 2023-07-28 14:15:00 97 /min [facility] Body temperature 2023-07-28 14:01:00 36.39 Basia [facility] Body height 2023-07-21 19:00:00 152.4 cm [facility] Body weight 2023-07-21 19:00:00 86.183 kg [facility] BMI 2023-07-21 19:00:00 37.11 kg/m2 [facility] Systolic blood pressure 2023-07-28 14:05:00 181 mm[Hg] [facility] Diastolic blood pressure 2023-07-28 14:05:00 70 mm[Hg] [facility] Heart rate 2023-07-28 14:05:00 58 /min [facility] Oxygen saturation in Arterial blood by Pulse oximetry 2023-07-28 14:05:00 97 /min [facility] Body temperature 2023-07-28 14:01:00 36.39 Basia [facility] Respiratory rate 2023-07-28 14:01:00 16 /min [facility] Body height 2023-07-21 19:00:00 152.4 cm [facility] Body weight 2023-07-21 19:00:00 86.183 kg [facility] BMI 2023-07-21 19:00:00 37.11 kg/m2 [facility] Systolic blood pressure 2020-04-24 15:05:00 145 mm[Hg] [facility] Diastolic blood pressure 2020-04-24 15:05:00 49 mm[Hg] [facility] Heart rate 2020-04-24 15:05:00 70 /min [facility] Body temperature 2020-04-24 15:05:00 36.94 Basia [facility] Respiratory rate 2020-04-24 15:05:00 23 /min [facility] Oxygen saturation in Arterial blood by Pulse oximetry 2020-04-24 15:05:00 97 /min [facility] Body height 2020-04-22 19:00:00 152.4 cm [facility] Body weight 2020-04-22 19:00:00 88.905 kg [facility] BMI 2020-04-22 19:00:00 38.28 kg/m2 [facility] Systolic blood pressure 2020-04-24 15:05:00 145 mm[Hg] [facility] Diastolic blood pressure 2020-04-24 15:05:00 49 mm[Hg] [facility] Heart rate 2020-04-24 15:05:00 70 /min [facility] Body temperature 2020-04-24 15:05:00 36.94 Basia [facility] Respiratory rate 2020-04-24 15:05:00 23 /min [facility] Oxygen saturation in Arterial blood by Pulse oximetry 2020-04-24 15:05:00 97 /min [facility] Body height 2020-04-22 19:00:00 152.4 cm [facility] Body weight 2020-04-22 19:00:00 88.905 kg [facility] BMI 2020-04-22 19:00:00 38.28 kg/m2 [facility] BP Systolic 2024-06-28 13:23:00 128 mm[Hg] Step hen F Logan BP Diastolic 2024-06-28 13:23:00 69 mm[Hg] Aubrey phen F Logan Weight Measured 2024-06-28 13:23:00 180.00 pounds Candido F Logan Height Measured 2024-06-28 13:23:00 60.00 inches Candido F Logan Body Temperature 2024-06-28 13:23:00 97.60 degrees Candido F Logan Heart Rate 2024-06-28 13:23:00 66.00 /min Renetta en F Logan Respiratory Rate 2024-06-28 13:23:00 Candido F Logan BP Systolic 2024-06-20 11:36:00 138 mm[Hg] Step hen F Logan BP Diastolic 2024-06-20 11:36:00 69 mm[Hg] Aubrey phen F Logan Weight Measured 2024-06-20 11:36:00 184.80 pounds Candido F Logan Height Measured 2024-06-20 11:36:00 60.00 inches Candido F Logan Body Temperature 2024-06-20 11:36:00 97.20 degrees Candido F Logan Heart Rate 2024-06-20 11:36:00 61.00 /min Renetta en F Logan Respiratory Rate 2024-06-20 11:36:00 Candido F Logan BP Systolic 2024-06-15 15:23:00 177 mm[Hg] Step hen F Logan BP Diastolic 2024-06-15 15:23:00 65 mm[Hg] Aubrey phen F Logan Weight Measured 2024-06-15 15:23:00 184.80 pounds Candido F Logan Height Measured 2024-06-15 15:23:00 60.00 inches Candido F Logan Body Temperature 2024-06-15 15:23:00 97.40 degrees Candido F Logan Heart Rate 2024-06-15 15:23:00 65.00 /min Renetta en F Logan Respiratory Rate 2024-06-15 15:23:00 18.00 /min Candido F Logan BP Systolic 2024-04-11 10:56:00 123 mm[Hg] Step hen F Logan BP Diastolic 2024-04-11 10:56:00 65 mm[Hg] Aubrey phen F Logan Weight Measured 2024-04-11 10:56:00 189.80 pounds Candido F Logan Height Measured 2024-04-11 10:56:00 60.00 inches Cnadido F Logan Body Temperature 2024-04-11 10:56:00 97.40 [...] 2021-12-11 14:12:00 192 mm[Hg] Step hen F Loagn BP Diastolic 2021-12-11 14:12:00 75 mm[Hg] Aubrey [...] Height Measured 2021-10-21 09:52:00 60.00 inches Candido F Logan Body Temperature 2021-10-21 09:52:00 97.40 degrees Candido F Logan Heart Rate 2021-10-21 09:52:00 78.00 /min Renetta en F Logan Respiratory Rate 2021-10-21 09:52:00 Candido F Logan Procedures Procedure Date / Time Performed Performing Clinician Source COMP. METABOLIC PANEL (25618) 2024-06-16 00:33:00 Obdulio Joe [facility] INFLUENZA A/B RSV COVID NAAT 2024-06-16 00:33:00 Obdulio Joe [facility] CT SOFT TISSUE NECK W CONTRAST 2024-06-15 23:01:47 Singer Obdulio [facility] CBC WITH DIFF 2024-06-15 21:45:00 Singer Obdulio [facility] RAPID STREP SCREEN FOR GROUP A 2024-06-15 21:45:00 Singer [facility] PHACOEMULSIFICATION OF CATARACT WITH INTRAOCULAR LENS IMPLANT 2023-08-04 12:52:00 Jena Joseph [facility] ASSIGNMENT OF BENEFITS 2023-08-03 15:24:21 Doctor Unassigned, [place] PHACOEMULSIFICATION OF CATARACT WITH INTRAOCULAR LENS IMPLANT 2023-07-28 13:24:00 Jena Joseph [facility] PATIENT QUESTIONNAIRE 2023-07-28 05:01:00 Doctor Unassigned, [facility] SURGERY - [facility] 2023-07-28 05:01:00 Doctor Unassigned, [place] PATIENT QUESTIONNAIRE 2023-07-28 05:01:00 Doctor Unassigned, [facility] SURGERY - [facility] 2023-07-28 05:01:00 Doctor Unassigned, [place] EGD (ENDO) 2020-04-24 14:05:27 Ashli Joseph [facility] COVID-19 (ID NOW RAPID TESTING) 2020-04-23 18:32:00 Deloris Guillermo [facility] Encounters Start Date/Time End Date/Time Encounter Type Admission Type Attending Clinicians Care Facility Care Department Encounter ID Source 2021-09-01 05:23:58 Outpatient R JENA JOSEPH OPH [id number] [facility] 2021-08-28 02:40:20 Outpatient R DELORIS MIX [facility] HU [id number] [facility] 2024-06-28 13:20:02 2024-06-28 13:20:02 Outpatient SFA S[facility] [id number] Candido Anderson Logan 2024-06-28 00:00:00 2024-06-28 00:00:00 Outpatient Visit SFA [id number] Candido Anderson Logan 2024-06-26 15:15:09 2024-06-26 15:15:09 Outpatient SFA SFA [id number] Candido Anderson Logan 2024-06-20 11:14:47 2024-06-20 11:14:47 Outpatient SFA SFA [id number] Candido Anderson Logan 2024-06-20 00:00:00 2024-06-20 00:00:00 Outpatient Visit SFA [id number] Candido Anderson Welcome 2024-06-15 16:16:00 2024-06-15 22:00:00 Emergency X OBDULIO JOE PHILLIP [facility] [id number] [facility] 2024-06-15 16:16:00 2024-06-15 22:00:00 Emergency Obdulio Joe AT [facility] 1.2.840.114 350.1.13.10 4.2.7.2.686 [id number] [facility] 2024-06-15 15:01:31 2024-06-15 15:01:31 Outpatient SFA SFA [id number] Candido Anderson Welcome 2024-06-15 00:00:00 2024-06-15 00:00:00 Outpatient Visit SFA [id number] Candido Anderson Logan 2024-04-11 10:56:04 2024-04-11 10:56:04 Outpatient SFA SFA [id number] Candido Anderson Logan 2024-04-11 00:00:00 2024-04-11 00:00:00 Outpatient Visit SFA [id number] Candido Ford 2023-12-14 11:10:17 2023-12-14 11:10:[address] [facility] [id number] Candido Ford 2023-11-28 12:25:17 2023-11-28 12:25:[address] [facility] [id number] Candido Ford 2023-11-04 13:51:30 2023-11-04 13:51:[address] [facility] [id number] Candido Ford 2023-10-05 13:46:51 2023-10-05 13:46:[address] [facility] [id number] Candido Ford 2023-09-12 09:22:24 2023-09-12 09:22:[address] [facility] [id number] Candido Ford 2023-08-10 11:38:03 2023-08-10 11:38:03 Outpatient [facility] [id number] Candido Anderson Logan 2023-08-04 06:25:00 2023-08-04 09:01:00 Hospital Encounter Jena Joseph [facility] 1..840.114 350.1.13.10 4.2.7.2.686 [id number] [facility] 2023-08-04 06:25:00 2023-08-04 09:01:00 Outpatient R JENA JOSEPH [facility] OPH [id number] [facility] 2023-08-04 08:00:00 2023-08-04 08:39:00 Surgery Jena Joseph [facility] 1..840.114 350.1.13.10 4.2.7.2.686 [id number] [facility] 2023-08-03 00:00:00 2023-08-03 00:00:00 Orders Only Doctor Unassigned, [place] [facility] 1..840.114 350.1.13.10 4.2.7.2.686 [id number] [facility] 2023-07-28 07:32:00 2023-07-28 09:20:00 Outpatient R JENA JOSEPH [facility] OPH [id number] [facility] 2023-07-28 07:32:00 2023-07-28 09:20:00 Hospital Encounter Jena Joseph [facility] 1.2.840.114 350.1.13.10 4.2.7.2.686 [id number] [facility] 2023-07-28 08:30:00 2023-07-28 09:09:00 Surgery Jena Joseph Ortiz [facility] 1.2.840.114 350.1.13.10 4.2.7.2.686 [id number] [facility] 2021-12-04 00:00:00 2021-12-04 00:00:00 Outpatient R VALENTIN [facility] [id number] [facility] 2021-08-18 11:45:00 2021-08-18 11:45:00 Outpatient JENA PIKE [facility] [id number] [facility] 2020-04-24 07:23:00 2020-04-24 10:37:00 Hospital Encounter Deloris Mix [facility] 1.2840.114 350.1.13.10 4.2.7.2.686 [id number] [facility] 2020-04-24 07:23:00 2020-04-24 10:37:00 Hospital Encounter Deloris Mix [facility] 1.2.840.114 350.1.13.10 4.2.7.2.686 [id number] 2020-04-23 13:45:00 2020-04-23 13:45:00 Outpatient R DELORIS MIX [facility] [id number] [facility] 2020-04-23 13:23:58 2020-04-23 13:38:58 Laboratory Only Only, [facility] Test Deloris Mix [facility] 1.2.840.114 350.1.13.10 4.2.7.2.686 [id number] [facility] 2020-04-23 13:23:58 2020-04-23 13:38:58 Laboratory Only Only, [facility] Test [facility] 1.2.840.114 350.1.13.10 4.2.7.2.686 [id number] Results Test Description Test Time Test Comments Results Result Co mments Source COMPREHENSIVE METABOLIC [id number] 00:00:00* Test Item Value Reference Range Interpretation Comme nts GLUCOSE (test code = 2217) 105 MG/DL BUN (test code = 2208) 10 MG/DL CREATININE (test code = 2214) 0.79 MG/DL eGFR (2020 CKD-EPI) (test co de = 24068) 77 ML/MIN/1.73 CALC BUN/CREAT (test code = 2235) 13 RATIO SODIUM (test code = 2231) 142 MEQ/L POTASSIUM (test code = 2228) 3.5 MEQ/L CHLORIDE (test code = 2215) 103 MEQ/L CARBON DIOXIDE (test code = 2206) 26 MEQ/L CALCIUM (test code = 2209) 8.8 MG/DL PROTEIN, TOTAL (test code = 2229) 6.8 G/DL ALBUMIN (test code = 2201) 4.0 G/DL CALC GLOBULIN (test code = 2240) 2.8 G/DL CALC A/G RATIO (test code = 2234) 1.4 RATIO BILIRUBIN, TOTAL (test code = 2207) 0.4 MG/DL ALKALINE PHOSPHATASE (test code = 2204) 105 U/L AST (test code = 2218) 48 U/L ALT (test code = 2219) 51 U/L Candido FordCOMPREHENSIVE METABOLIC [id number] 00:00:00* Test Item Value Reference Range Interpretation Comme nts GLUCOSE (test code = 2217) 105 MG/DL BUN (test code = 2208) 10 MG/DL CREATININE (test code = 2214) 0.79 MG/DL eGFR (2020 CKD-EPI) (test co de = 06187) 77 ML/MIN/1.73 CALC BUN/CREAT (test code = 2235) 13 RATIO SODIUM (test code = 2231) 142 MEQ/L POTASSIUM (test code = 2228) 3.5 MEQ/L CHLORIDE (test code = 2215) 103 MEQ/L CARBON DIOXIDE (test code = 2206) 26 MEQ/L CALCIUM (test code = 2209) 8.8 MG/DL PROTEIN, TOTAL (test code = 2229) 6.8 G/DL ALBUMIN (test code = 2201) 4.0 G/DL CALC GLOBULIN (test code = 2240) 2.8 G/DL CALC A/G RATIO (test code = 2234) 1.4 RATIO BILIRUBIN, TOTAL (test code = 2207) 0.4 MG/DL ALKALINE PHOSPHATASE (test code = 2204) 105 U/L AST (test code = 2218) 48 U/L ALT (test code = 2219) 51 U/L Candido FordCOMPREHENSIVE METABOLIC [id number] 00:00:00* Test Item Value Reference Range Interpretation Comme nts GLUCOSE (test code = 2217) 105 MG/DL BUN (test code = 2208) 10 MG/DL CREATININE (test code = 2214) 0.79 MG/DL eGFR (2020 CKD-EPI) (test co de = 44660) 77 ML/MIN/1.73 CALC BUN/CREAT (test code = 2235) 13 RATIO SODIUM (test code = 2231) 142 MEQ/L POTASSIUM (test code = 2228) 3.5 MEQ/L CHLORIDE (test code = 2215) 103 MEQ/L CARBON DIOXIDE (test code = 2206) 26 MEQ/L CALCIUM (test code = 2209) 8.8 MG/DL PROTEIN, TOTAL (test code = 2229) 6.8 G/DL ALBUMIN (test code = 2201) 4.0 G/DL CALC GLOBULIN (test code = 2240) 2.8 G/DL CALC A/G RATIO (test code = 2234) 1.4 RATIO BILIRUBIN, TOTAL (test code = 2207) 0.4 MG/DL ALKALINE PHOSPHATASE (test code = 2204) 105 U/L AST (test code = 2218) 48 U/L ALT (test code = 2219) 51 U/L Candido Good. Metabolic Panel (25690)2024-06-16 01:08:37* Test Item Value Reference Range Interpretation Comme nts NA (test code = 5739916549) 136 mmol/L 135-145 K (test code = 4212105662) 2.9 mmol/L 3.5-5.0 LL CL (test code = 6964354297) 100 mmol/L 98-108 CO2 TOTAL (test code = 7625995424) 25 mmol/L 23-31 AGAP (test code = 4853488181) 11 2-16 BUN (test code = 7619984607) 15 mg/dL 7-23 GLUCOSE (test code = 5271071216) 99 mg/dL 70-110 CREATININE (test code = 2160-0) 0.75 mg/dL 0.50-1.04 TOTAL BILI (test code = 9478181197) 1.0 mg/dL 0.1-1.1 CALCIUM (test code = 8742318412) 8.6 mg/dL 8.6-10.6 T PROTEIN (test code = 9716125992) 7.3 g/dL 6.3-8.2 ALBUMIN (test code = 1029650303) 3.8 g/dL 3.5-5.0 ALK PHOS (test code = 8691966118) 109 U/L 34-122 ALTv (test code = 1742-6) 52 U/L 5-35 H AST(SGOT) (test code = 6779628296) 56 U/L 13-40 H eGFR (test code = 58263-9) 82.6 mL/min/1.73m2 CKD-EPI eGFR (2020). Assuming creatinine has been stable day-to-day for at least three months, the eGFR indicates Category G2 (60 - 89 mL/min/1.73 m2) Lab Interpretation (test code = 53692-8) [facility] [id number] 23:33:05EXAM: CT SOFT TISSUE NECK W CONTRAST HISTORY: 74 years -old Female with Neck abscess, deep tissue TECHNIQUE: Spiral CT acquisition of the neck was performed after theuncomplicated administration of intravenous contrast. Coronal and sagittalreconstructions were obtained. COMPARISON: FINDINGS: The bunny opharynx, oropharynx, hypopharynx and larynx are patent withoutasymmetric soft tissue density. The trachea and cervical esophagus areunremarkable.?Streak artifact from dental amalgam limits evaluation of the oral cavity.The visual portions of the oral tongue, floor of mouth and normal. The parotid and submandibular salivary glands are unremarkable. No stone isseen along the course of the Abner or Blount duct. Multiple hypodensenodules within the thyroid gland, the largest of which measures 1.1 cm andthe right gland (series 2 image 47).?No pathologically enlarged or morphologically suspicious cervical lymphnodes are present.[facility] with [id number] 22:13:36* Test Item Value Reference Range Interpretation Comme nts WBC (test code = 6690-2) 7.83 4.30-11.10 RBC (test code = 789-8) 3.76 3.93-5.25 L HGB (test code = 718-7) 11.8 g/dL 11.6-15.0 HCT (test code = 4544-3) 36.2 % 35.7-45.2 MCV (test code = 787-2) 96.3 fL 80.6-95.5 H MCH (test code = 785-6) 31.4 pg 25.9-32.8 MCHC (test code = 786-4) 32.6 g/dL 31.6-35.1 RDW-SD (test code = 07053-9) 54.1 fL 39.0-49.9 H RDW-CV (test code = 788-0) 17.2 % 12.0-15.5 H PLT (test code = 777-3) 259 166-358 MPV (test code = 38384-8) 10.9 fL 9.5-12.9 NRBC/100 WBC (test code = 5945627588) 0.0 0.0-10.0 NRBC x10^3 (test code = 0319511758) See_Comment [Automated messa ge] The system which generated this result transmitted reference range: 10*3/?L. The reference range was not used to interpret this result as normal/abnormal. GRAN MAT (NEUT) % (test code = 770-8) 71.7 % IMM GRAN % (test code = 6035452198) 0.40 % LYMPH % (test code = 736-9) 18.9 % MONO % (test code = 5905-5) 6.6 % EOS % (test code = 713-8) 1.8 % BASO % (test code = 706-2) 0.6 % GRAN MAT x10^3(ANC) (test code = 4942560019) 5.61 10*3/uL 1.88-7.09 IMM GRAN x10^3 (test code = 4673400195) 0.03 10*3/uL 0.00-0.06 LYMPH x10^3 (test code = 731-0) 1.48 10*3/uL 1.32-3.29 MONO x10^3 (test code = 742-7) 0.52 10*3/uL 0.33-0.92 EOS x10^3 (test code = 711-2) 0.14 10*3/uL 0.03-0.39 BASO x10^3 (test code = 704-7) 0.05 10*3/uL 0.01-0.07 Lab Interpretation (test code = 53429-9) [facility] [id number] 04:51:40* Test Item Value Reference Range Interpretation Comme nts GLUCOSE (test code = 2217) 89 MG/DL 70-99 BUN (test code = 2208) 14 MG/DL 8-23 CREATININE (test code = 2214) 0.79 MG/DL 0.60-1.30 eGFR (2020 CKD-EPI) (test co de = 29689) 78 ML/MIN/1.73 >60 CALC BUN/CREAT (test code = 2235) 18 RATIO 6-28 SODIUM (test code = 2231) 142 MEQ/L 133-146 POTASSIUM (test code = 2228) 3.6 MEQ/L 3.5-5.4 CHLORIDE (test code = 2215) 103 MEQ/L 95-107 CARBON DIOXIDE (test code = 6) 27 MEQ/L 19-31 CALCIUM (test code = 2209) 8.6 MG/DL 8.5-10.5 PROTEIN, TOTAL (test code = 2228) 6.3 G/DL 6.1-8.3 ALBUMIN (test code = 220) 3.7 G/DL 3.5-5.2 CALC GLOBULIN (test code = 2240) 2.6 G/DL 1.9-3.7 CALC A/G RATIO (test code = 2234) 1.4 RATIO 1.0-2.6 BILIRUBIN, TOTAL (test code = 2206) 0.4 MG/DL <=1.2 ALKALINE PHOSPHATASE (test code = 220) 105 U/L 40-142 AST (test code = 221) 34 U/L 9-40 ALT (test code = 2219) 31 U/L 5-40 CBC W/AUTO DIFF WITH [id number] 01:47:18* Test Item Value Reference Range Interpretation [...] 0.00-0.10 ABS NUCLEATED RBCS (test code = 93834) 0.00 K/UL 0.00-0.11 UNLESS OTHER LOR[place]O INDICATED, ALL TESTING PERFORMED AT [facility] [address] [place] [id number] DRY MOP MAKER: ALONZO IBARRA M.D. CLIA NUMBER [id number] [place]. [id number] COMPREHENSIVE METABOLIC [id number] 00:00:00* Test Item Value Reference Range Interpretation Comme nts GLUCOSE (test code = 2217) 89 MG/DL BUN (test code = 2208) 14 MG/DL CREATININE (test code = 2214) 0.79 MG/DL eGFR (2020 CKD-EPI) (test co de = 75173) 78 ML/MIN/1.73 CALC BUN/CREAT (test code = [...] (test code = 2219) 31 U/L Candido FordCBC W/AUTO [id number] 00:00:00* Test Item Value Reference Range Interpretation [...] ABS NUCLEATED RBCS (test cod e = 44544) 0.00 K/UL Candido FordCOMPREHENSIVE METABOLIC [id number] 00:00:00* Test Item Value Reference Range Interpretation Comme nts GLUCOSE (test code = 2217) 89 MG/DL BUN (test code = 2208) 14 MG/DL CREATININE (test code = 2214) 0.79 MG/DL eGFR (2020 CKD-EPI) (test co de = 00716) 78 ML/MIN/1.73 CALC BUN/CREAT (test code = [...] (test code = 2219) 31 U/L Candido FordCBC W/AUTO [id number] 00:00:00* Test Item Value Reference Range Interpretation [...] ABS NUCLEATED RBCS (test cod e = 13263) 0.00 K/UL Candido FordCOMPREHENSIVE METABOLIC [id number] 00:00:00* Test Item Value Reference Range Interpretation Comme nts GLUCOSE (test code = 2217) 89 MG/DL BUN (test code = 2208) 14 MG/DL CREATININE (test code = 2214) 0.79 MG/DL eGFR (2020 CKD-EPI) (test co de = 23055) 78 ML/MIN/1.73 CALC BUN/CREAT (test code = [...] (test code = 2219) 31 [facility] [id number] 00:00:00* Test Item Value Reference Range Interpretation [...] ABS NUCLEATED RBCS (test cod e = 52912) 0.00 K/UL Candido Anderson LoganCOMPREHENSIVE METABOLIC [id number] 00:00:00* Test Item Value Reference Range Interpretation Comme nts GLUCOSE (test code = 2217) 89 MG/DL BUN (test code = 2208) 14 MG/DL CREATININE (test code = 2214) 0.79 MG/DL eGFR (2020 CKD-EPI) (test co de = 30918) 78 ML/MIN/1.73 CALC BUN/CREAT (test code = [...] (test code = 2219) 31 U/L Candido FordCBC W/AUTO [id number] 00:00:00* Test Item Value Reference Range Interpretation [...] ABS NUCLEATED RBCS (test cod e = 82407) 0.00 K/UL Candido Buck, [id number] 00:00:00* Test Item Value Reference Range Interpretation Comme nts CULTURE, URINE (test code = 06867) SPECIMEN NUMBER: [id number] Candido Buck [id number] 00:00:00* Test Item Value Reference Range Interpretation Comme nts CULTURE, URINE (test code = 65961) SPECIMEN NUMBER: [id number] Candido Buck, [id number] 00:00:00* Test Item Value Reference Range Interpretation Comme nts CULTURE, URINE (test code = 48324) SPECIMEN NUMBER: [id number] Candido Buck [id number] 00:00:00* Test Item Value Reference Range Interpretation Comme nts CULTURE, URINE (test code = 57577) SPECIMEN NUMBER: [id number] Candido FordCOMPREHENSIVE METABOLIC [id number] 06:09:45* Test Item Value Reference Range Interpretation Comme nts GLUCOSE (test code = 2216) 83 MG/DL 70-99 BUN (test code = 2207) 17 MG/DL 8-23 CREATININE (test code = 2213) 0.72 MG/DL 0.60-1.30 eGFR (2020 CKD-EPI) (test code = ) 87 ML/MIN/1.73 >60 CALC BUN/CREAT (test code = 2234) 24 RATIO 6-28 SODIUM (test code = 2230) 139 MEQ/L 133-146 POTASSIUM (test code = 2227) 3.9 MEQ/L 3.5-5.4 CHLORIDE (test code = 2214) 103 MEQ/L 95-107 CARBON DIOXIDE (test code = 2205) 24 MEQ/L 19-31 CALCIUM (test code = 2208) 8.9 MG/DL 8.5-10.5 PROTEIN, TOTAL (test code = 2228) 6.5 G/DL 6.1-8.3 ALBUMIN (test code = 2200) 4.3 G/DL 3.5-5.2 CALC GLOBULIN (test code = 2239) 2.2 G/DL 1.9-3.7 CALC A/G RATIO (test code = 2233) 2.0 RATIO 1.0-2.6 BILIRUBIN, TOTAL (test code = 2206) 0.3 MG/DL <=1.2 ALKALINE PHOSPHATASE (test code = 2203) 80 U/L 40-142 AST (test code = 2217) 19 U/L 9-40 ALT (test code = 2218) 18 U/L 5-40 UNLESS OTHERWISE INDICATED, ALL TESTING PERFORMED AT [facility] [address] [place] [address] DRY MOP MAKER: ALONZO IBARRA M.D. CLIA NUMBER [id number] [facility] [place]. [id number] CBC W/AUTO DIFF WITH [id number] 03:51:01* Test Item Value Reference Range Interpretation [...] = 1065) 0.0 /100 WBC'S See_Comment [Automated [employer] ge] The system which generated this result [...] 0.00-0.10 ABS NUCLEATED RBCS (test code = 41239) 0.00 K/UL 0.00-0.11 CBC W/AUTO [id number] 00:00:00* Test Item Value Reference Range Interpretation [...] ABS NUCLEATED RBCS (test cod e = 95591) 0.00 K/UL Candido FordCOMPREHENSIVE METABOLIC [id number] 00:00:00* Test Item Value Reference Range Interpretation Comme nts GLUCOSE (test code = 2217) 83 MG/DL BUN (test code = 2208) 17 MG/DL CREATININE (test code = 2214) 0.72 MG/DL eGFR (2020 CKD-EPI) (test co de = 85575) 87 ML/MIN/1.73 CALC BUN/CREAT (test code = [...] (test code = 2219) 18 U/L Candido FodrCBC W/AUTO [id number] 00:00:00* Test Item Value Reference Range Interpretation [...] ABS NUCLEATED RBCS (test cod e = 33815) 0.00 K/UL Candido FordCOMPREHENSIVE METABOLIC [id number] 00:00:00* Test Item Value Reference Range Interpretation Comme nts GLUCOSE (test code = 2217) 83 MG/DL BUN (test code = 2208) 17 MG/DL CREATININE (test code = 2214) 0.72 MG/DL eGFR (2020 CKD-EPI) (test co de = 30091) 87 ML/MIN/1.73 CALC BUN/CREAT (test code = [...] (test code = 2219) 18 U/L [facility] [id number] 00:00:00* Test Item Value Reference Range Interpretation [...] ABS NUCLEATED RBCS (test cod e = 66065) 0.00 K/UL Candido FordCOMPREHENSIVE METABOLIC [id number] 00:00:00* Test Item Value Reference Range Interpretation Comme nts GLUCOSE (test code = 2217) 83 MG/DL BUN (test code = 2208) 17 MG/DL CREATININE (test code = 2214) 0.72 MG/DL eGFR (2020 CKD-EPI) (test co de = 54781) 87 ML/MIN/1.73 CALC BUN/CREAT (test code = [...] (test code = 2219) 18 U/L Candido FordCBC W/AUTO [id number] 00:00:00* Test Item Value Reference Range Interpretation [...] ABS NUCLEATED RBCS (test cod e = 08226) 0.00 K/UL Candido Anderson LoganCOMPREHENSIVE METABOLIC [id number] 00:00:00* Test Item Value Reference Range Interpretation Comme nts GLUCOSE (test code = 2217) 83 MG/DL BUN (test code = 2208) 17 MG/DL CREATININE (test code = 2214) 0.72 MG/DL eGFR (2020 CKD-EPI) (test co de = 18880) 87 ML/MIN/1.73 CALC BUN/CREAT (test code = [...] (test code = 2219) 18 U/L [facility] DIFF WITH [id number] 08:35:24* Test Item Value Reference Range Interpretation [...] = 1065) 0.0 /100 WBC'S See_Comment [Automated [employer] ge] The system which generated this result [...] 0.00-0.10 ABS NUCLEATED RBCS (test code = 01607) 0.00 K/UL 0.00-0.11 COMPREHENSIVE METABOLIC [id number] 06:57:11* Test Item Value Reference Range Interpretation Comme nts GLUCOSE (test code = 2217) 92 MG/DL 70-99 BUN (test code = 2208) 10 MG/DL 8-23 CREATININE (test code = 2214) 0.63 MG/DL 0.60-1.30 eGFR (2020 CKD-EPI) (test code = ) 94 ML/MIN/1.73 >60 CALC BUN/CREAT (test code = 2234) 16 RATIO 6-28 SODIUM (test code = 2230) 139 MEQ/L 133-146 POTASSIUM (test code = 2227) 3.5 MEQ/L 3.5-5.4 CHLORIDE (test code = 2214) 101 MEQ/L 95-107 CARBON DIOXIDE (test code = 2205) 25 MEQ/L 19-31 CALCIUM (test code = 2208) 9.1 MG/DL 8.5-10.5 PROTEIN, TOTAL (test code = 2228) 6.7 G/DL 6.1-8.3 ALBUMIN (test code = 2200) 4.1 G/DL 3.5-5.2 CALC GLOBULIN (test code = 2239) 2.6 G/DL 1.9-3.7 CALC A/G RATIO (test code = 2233) 1.6 RATIO 1.0-2.6 BILIRUBIN, TOTAL (test code = 2206) 0.7 MG/DL See_Comment [Automated me ssage] The system which generated this result transmitted reference range: <=1.2. The reference range was not used to interpret this result as normal/abnormal. ALKALINE PHOSPHATASE (test code = 2203) 111 U/L 40-142 AST (test code = 2217) 27 U/L 9-40 ALT (test code = 2218) 19 U/L 5-40 UNLESS OTHERWISE INDICATED, ALL TESTING PERFORMED [facility] [address] [place] [address] DRY MOP MAKER: LAWRENCE GLORIA M.D. CLIA NUMBER [id number] [facility] [place]. [id number] CBC W/AUTO [id number] 00:00:00* Test Item Value Reference Range Interpretation [...] ABS NUCLEATED RBCS (test cod e = 79705) 0.00 K/UL Candido FordCOMPREHENSIVE METABOLIC [id number] 00:00:00* Test Item Value Reference Range Interpretation Comme nts GLUCOSE (test code = 2217) 92 MG/DL BUN (test code = 2208) 10 MG/DL CREATININE (test code = 2214) 0.63 MG/DL eGFR (2020 CKD-EPI) (test co de = 63859) 94 ML/MIN/1.73 CALC BUN/CREAT (test code = [...] (test code = 2219) 19 U/L Candido FordCBC W/AUTO [id number] 00:00:00* Test Item Value Reference Range Interpretation [...] ABS NUCLEATED RBCS (test cod e = 40743) 0.00 K/UL Candido FordCOMPREHENSIVE METABOLIC [id number] 00:00:00* Test Item Value Reference Range Interpretation Comme nts GLUCOSE (test code = 2217) 92 MG/DL BUN (test code = 2208) 10 MG/DL CREATININE (test code = 2214) 0.63 MG/DL eGFR (2020 CKD-EPI) (test co de = 26042) 94 ML/MIN/1.73 CALC BUN/CREAT (test code = [...] code = 2219) 19 U/L [facility] [id number] 00:00:00* Test Item Value Reference Range Interpretation [...] ABS NUCLEATED RBCS (test cod e = 88776) 0.00 K/UL Candido FordCOMPREHENSIVE METABOLIC [id number] 00:00:00* Test Item Value Reference Range Interpretation Comme nts GLUCOSE (test code = 2217) 92 MG/DL BUN (test code = 2208) 10 MG/DL CREATININE (test code = 2214) 0.63 MG/DL eGFR (2020 CKD-EPI) (test co de = 61863) 94 ML/MIN/1.73 CALC BUN/CREAT (test code = [...] (test code = 2219) 19 U/L Candido FordCBC W/AUTO [id number] 00:00:00* Test Item Value Reference Range Interpretation [...] ABS NUCLEATED RBCS (test cod e = 61092) 0.00 K/UL Candido Anderson LoganCOMPREHENSIVE METABOLIC [id number] 00:00:00* Test Item Value Reference Range Interpretation Comme nts GLUCOSE (test code = 2217) 92 MG/DL BUN (test code = 2208) 10 MG/DL CREATININE (test code = 2214) 0.63 MG/DL eGFR (2020 CKD-EPI) (test co de = 09152) 94 ML/MIN/1.73 CALC BUN/CREAT (test code = [...] (test code = 2219) 19 U/L Candido FordLIPID [id number] 03:34:36* Test Item Value Reference Range Interpretation Comme nts CHOLESTEROL (test code = 2210) 162 MG/DL <200 TRIGLYCERIDES (test code = 2232) 129 MG/DL <150 HDL CHOLESTEROL (test code = 0) 43 MG/DL >39 CALC LDL CHOL (test code = 2236) 96 MG/DL <100 NOTE: CALCULATED LDL IS BASED ON NIMO-HUGO METHOD WHICHINCLUDES ADJUSTABLE TRIGLYCERIDE:VLDL CHOLESTEROL RATIO.THIS FACTOR VARIES BY MEASURED TRIGLYCERIDE AND NON-HDLCHOLESTEROL CONCENTRATIONS WITH INCREASED CALCULATED LDL SEENIN HIGHER TRIGLYCERIDE OR LOWER NON-HDL SPECIMENS. FOR MOREINFORMATION, SEE CLIENT ANNOUNCEMENT AT [email or web address] RISK RATIO LDL/HDL (test code = 2237) 2.23 RATIO <3.22 COMPREHENSIVE METABOLIC [id number] 03:34:36* Test Item Value Reference Range Interpretation Comme nts GLUCOSE (test code = 221) 98 MG/DL 70-99 BUN (test code = 2207) 11 MG/DL 8-23 CREATININE (test code = 221) 0.52 MG/DL 0.60-1.30 L EFFECTIVE 2020, [facility] HAS IMPLEMENTED THE NKF-ASN RECOMMENDED KD-EPI EGFR REFIT CALCULATION THAT DOES NOT INCLUDE A COEFFICIENT FORRACE. FOR MORE INFORMATION, SEE ANNOUNCEMENT [email or web address] eGFR (2020 CKD-EPI) (test code = 26415) 98 ML/MIN/1.73 >60 CALC BUN/CREAT (test code = 2234) 21 RATIO 6-28 SODIUM (test code = 2230) 142 MEQ/L 133-146 POTASSIUM (test code = 2227) 3.8 MEQ/L 3.5-5.4 CHLORIDE (test code = 221) 105 MEQ/L 95-107 CARBON DIOXIDE (test code = 220) 27 MEQ/L 19-31 CALCIUM (test code = 220) 8.9 MG/DL 8.5-10.5 PROTEIN, TOTAL (test code = 2228) 6.4 G/DL 6.1-8.3 ALBUMIN (test code = 2200) 4.0 G/DL 3.5-5.2 CALC GLOBULIN (test code = 2240) 2.4 G/DL 1.9-3.7 CALC A/G RATIO (test code = 223) 1.7 RATIO 1.0-2.6 BILIRUBIN, TOTAL (test code = 2206) 0.4 MG/DL See_Comment [Automated me ssage] The system which generated this result transmitted reference range: <=1.2. The reference range was not used to interpret this result as normal/abnormal. ALKALINE PHOSPHATASE (test code = 2204) 123 U/L 40-142 AST (test code = 2218) 17 U/L 9-40 ALT (test code = 2219) 15 U/L 5-40 UNLESS OTHERWISE INDICATED, ALL TESTING PERFORMED [facility] [employer] [employer] [address] [place] [address] DRY MOP MAKER: LAWRENCE GLORIA M.D. CLIA NUMBER [id number] [facility] [place]. [id number] LIPID [id number] 00:00:00* Test Item Value Reference Range Interpretation Comme nts CHOLESTEROL (test code = 2210) 162 MG/DL TRIGLYCERIDES (test code = 2232) 129 MG/DL HDL CHOLESTEROL (test code = 2220) 43 MG/DL CALC LDL CHOL (test code = 2237) 96 MG/DL RISK RATIO LDL/HDL (test cod e = 2238) 2.23 RATIO Candido Justin LoganCOMPREHENSIVE METABOLIC [id number] 00:00:00* Test Item Value Reference Range Interpretation Comme nts GLUCOSE (test code = 2217) 98 MG/DL BUN (test code = 2208) 11 MG/DL CREATININE (test code = 2214) 0.52 MG/DL eGFR (2020 CKD-EPI) (test co de = 93674) 98 ML/MIN/1.73 CALC BUN/CREAT (test code = [...] code = 2219) 15 U/L Candido Anderson AustinLIPID [id number] 00:00:00* Test Item Value Reference Range Interpretation Comme nts CHOLESTEROL (test code = 2210) 162 MG/DL TRIGLYCERIDES (test code = 2232) 129 MG/DL HDL CHOLESTEROL (test code = 2220) 43 MG/DL CALC LDL CHOL (test code = 2237) 96 MG/DL RISK RATIO LDL/HDL (test cod e = 2238) 2.23 RATIO Candido Anderson AustinCOMPREHENSIVE METABOLIC [id number] 00:00:00* Test Item Value Reference Range Interpretation Comme nts GLUCOSE (test code = 2217) 98 MG/DL BUN (test code = 2208) 11 MG/DL CREATININE (test code = 2214) 0.52 MG/DL eGFR (2020 CKD-EPI) (test co de = 87227) 98 ML/MIN/1.73 CALC BUN/CREAT (test code = [...] code = 2219) 15 U/L Candido Anderson AustinLIPID [id number] 00:00:00* Test Item Value Reference Range Interpretation Comme nts CHOLESTEROL (test code = 2210) 162 MG/DL TRIGLYCERIDES (test code = 2232) 129 MG/DL HDL CHOLESTEROL (test code = 2220) 43 MG/DL CALC LDL CHOL (test code = 2237) 96 MG/DL RISK RATIO LDL/HDL (test cod e = 2238) 2.23 RATIO Candido Anderson AustinCOMPREHENSIVE METABOLIC [id number] 00:00:00* Test Item Value Reference Range Interpretation Comme nts GLUCOSE (test code = 2217) 98 MG/DL BUN (test code = 2208) 11 MG/DL CREATININE (test code = 2214) 0.52 MG/DL eGFR (2020 CKD-EPI) (test co de = 63555) 98 ML/MIN/1.73 CALC BUN/CREAT (test code = [...] code = 2219) 15 U/L Candido Anderson AustinLIPID [id number] 00:00:00* Test Item Value Reference Range Interpretation Comme nts CHOLESTEROL (test code = 2210) 162 MG/DL TRIGLYCERIDES (test code = 2232) 129 MG/DL HDL CHOLESTEROL (test code = 2220) 43 MG/DL CALC LDL CHOL (test code = 2237) 96 MG/DL RISK RATIO LDL/HDL (test cod e = 2238) 2.23 RATIO Candido Anderson AustinCOMPREHENSIVE METABOLIC [id number] 00:00:00* Test Item Value Reference Range Interpretation Comme nts GLUCOSE (test code = 2217) 98 MG/DL BUN (test code = 2208) 11 MG/DL CREATININE (test code = 2214) 0.52 MG/DL eGFR (2020 CKD-EPI) (test co de = 92843) 98 ML/MIN/1.73 CALC BUN/CREAT (test code = [...] (test code = 2219) 15 U/L Candido FordCOVID-19 (ID NOW RAPID TESTING)2020-04-23 19:24:00* Test Item Value Reference Range Interpretation Comme nts SARS-CoV-2 Rapid ID NOW (test code = 68735-7) Not Detected Not Detected NIRMAL (test code = NIRMAL) ID NOW COVID-19 As say is an isothermal nucleic acid amplification test intended for the qualitative detection of nucleic acid from SARS-CoV-2 viral RNA in nasopharyngeal (SALES DIRECTOR) specimens. It is used under Emergency Use [...] clinically indicated. Lab Interpretation (test code = 84096-1) Normal [facility] Notes Date/Time Note Provider Source Candido Quevedo [facility]2024-08-21 00:00:00 Candido Quevedo [facility]2024-08-16 21:59:33 Pt given printed and verbal discharge instructions regarding pharyngitis. Pt verbalized understanding of instructions, pt awake alert oriented, resp reg unlabored, skin w/d, color appropriate for race, moves all ext well,pt encouraged to follow up with pcp. Advised to seek medical attention for new/prolonged/worsening of symptoms, Symptoms increased difficulty breathing No adverse reaction to meds given in ER noted upon discharge PIV d'cd, dressing to site, catheter in tact. Awake, alert oriented, resp reg unlabored, skin w/d, pt leaving ambulatory without assist, in no apparent distress, [facility]ito Knight [id number] 16:11:38 Pt came in walking states" I have a heart catheterization done on 06/07/2024, I visited Dr. Diego today, he check my throat and told me there is no swelling and told me to continue taking the medicine, however I have problem swallowing and my throat hurts, and my coughing does not stop" Notice that everytime she cough she is catching her breath [facility]anna Medeiros [id number] 00:00:00 [facility]2024-06-12 00:00:00 [facility]
[2024-07-09] MEDS ORDERED: propofoL 1,000 MG/100 ML VIAL IV ONE ×2 (17:36→22:19)
[2024-07-09 17:56] LABS: Absolute Lymphocytes (CBC) 5.4 K/uL (0.7-4.9); Absolute Monocytes 0.3 K/uL (0.1-1.3); Basophils % 0.1 % (0-1.3); Eosinophils % 0.4 % (0-4.4); Hematocrit 32.6 % (36.0-45.0); Hemoglobin 11.1 g/dL (12.0-15.0); Lymphocytes % 61.9 % (15.3-44.8); MCH 31.1 pg (27.0-35.0); MCHC 33.9 g/dL (32.0-36.0); MCV 91.7 fL (80-100); MPV 8.1 fL (7.6-11.3); Neutrophils % 33.6 % (41.7-73.7); Nucleated Red Blood Cells % 0.1 % (0-0); Platelets 349 thou/uL (152-406); RBC Red Blood Cell Count 3.55 M/uL (3.86-4.86)
[2024-07-09 18:13] LABS: Arterial Blood Carboxyhemoglob 0.6 % (0-1.5); Blood Gas Oxyhemoglobin 96.6 % (94-97); Blood Gas THB 10.9 g/dl (12-18); Blood O2 Saturation 99.2 % (92-98.5)
--- NOTE | 2024-07-09 18:30 | ER ---
Nurse's Notes [facility] Name: Dari Miguel Age: 74 yrs Sex: Female : 1950 Arrival Date: 07/09/2024 Time: 17:26 Bed 2 Private MD: Diagnosis: Anaphylaxis, airway compromise, intubation by physician Presentation: 07/09 17:18 Chief complaint: EMS states: ALLERGIC REACTION WHILE EATING AT MARCIN'S SON GAVE EPI PEN. db PT FOUND BY EMS SLUMPED OVER SWOLLEN FACE WITH DIFFICULTY BREATHING. . HX OF PEANUT ALLERGY. EMS GAVE 2 ROUNDS EPI 0.3 MG IM, 25 MG IV BENADRYL, 25 MG IM BENADRYL, 125 MG IV SOLUMEDROL, 4MG ZOFRAN IV AND BREATHING TREATMENT. PT ARRIVED TO ED IN DISTRESSED UNABLE TO TALK. Coronavirus screen: At this time, unable to obtain information related to travel outside the [place] At this time, the client does not indicate any symptoms associated with coronavirus-19. Ebola Screen: Unable to complete the Ebola screening because: CRITICAL. Initial Sepsis Screen: Does the patient meet any 2 criteria?. Initial Sepsis Screen: Does the patient have a suspected source of infection? No. Patient's initial sepsis screen is negative. Risk Assessment: Do you want to hurt yourself or someone else? Patient reports no desire to harm self or others. Onset of symptoms was July 09, 2024. Care prior to arrival: Medication(s) given: IV initiated. 20 GA, in the right antecubital area, Med neb given. 17:18 Method Of Arrival: EMS: [facility] db 17:18 Acuity: ANISHA 1 db 17:20 Note PATIENT TRANSFERRED TO ROOM 2 FROM ROOM 19 FOR PLAN FOR INTUBATION. db Triage Assessment: 17:18 General: Appears distressed, uncomfortable, Behavior is listless, restless. Pain: db Unable to use pain scale. CRITICAL. Neuro: Level of Consciousness is awake, alert, Oriented to none. Respiratory: Reports UNABLE TO BREATH Airway is patent Respiratory pattern is regular, symmetrical, Onset: The symptoms/episode began/occurred just prior to arrival, the patient has severe shortness of breath. Historical: - Allergies: 17:18 Peanut; db 17:18 PECANS; db - PMHx: 17:18 acid reflux; Anxiety; Atrial fibrillation; depressive disorder; Hyperlipidemia; db Hyperlipidemia; Hypertension; - Immunization history:: Adult Immunizations unknown. - Infectious Disease History:: Denies. - Social history:: Smoking status: unknown. Screenin:28 [facility] ED Fall Risk Assessment (Adult) History of falling in the last 3 months, ko1 including since admission No falls in past 3 months (0 pts) Confusion or Disorientation No (0 pts) Intoxicated or Sedated No (0 pts) Impaired Gait No (0 pts) Mobility Assist Device Used No (0 pt) Altered Elimination No (0 pt) Score/Fall Risk Level 0 - 2 = Low Risk Oriented to surroundings, Maintained a safe environment, Educated pt \T\ family on fall prevention, incl call for assistance when getting out of bed, Assessed \T\ reinforced patient's understanding of fall precautions, Provided non-skid footwear, Hourly rounding (assess needs \T\ fall precautionary measures) done. 17:28 Abuse screen: Denies threats or abuse. Denies injuries from another. Nutritional ko1 screening: No deficits noted. Tuberculosis screening: No symptoms or risk factors identified. Assessment: 17:28 Reassessment: PT DISTRESSED. RT, PHYSICIAN AND STAFF AT BEDSIDE FOR INTUBATION. db 17:29 Reassessment: 20 MG ETOMIDATE GIVEN. db 17:30 Reassessment: 80 MG ROCURONIUM GIVEN IVP. db 17:30 Cardiovascular: Rhythm is regular. Respiratory: Respiratory: Airway is compromised ko1 Trachea midline Respiratory effort is labored, Breath sounds are diminished bilaterally. 17:34 Reassessment: PT INTUBATED. + COLOR CHANGE. ET TUBE , 23 AT THE TEETH. PLACED ON db VENTILATOR BY RT. 18:00 Respiratory: Ventilator assessment: ET Tube: 7.5 23 cm at gum line. Ventilator Mode: ko1 Assist Control (AC) Tidal Volume: 400 Respiratory Rate: 16 FiO2: 30% PEEP: 5 HOB > 30 degrees. Patient repositioned to supine position. 19:00 Reassessment: Pt remains intubated with angio edema still present. jb4 20:00 Reassessment: Patient appears in no apparent distress at this time. No changes from jb4 previously documented assessment. Patient and/or family updated on plan of care and expected duration. Pain level reassessed. Vital Signs: 17:18 Pulse 76; Resp 28; Pulse Ox 97% on Nebulizer Mask; db 17:34 BP 164 / 96; Pulse 77; Resp 26; Pulse Ox 100% on ETT ambu; db 17:52 BP 121 / 53; Pulse 73; Resp 16; Pulse Ox 100% ; dd2 18:00 BP 85 / 46; Pulse 64; Resp 16; Pulse Ox 100% ; dd2 18:05 BP 77 / 45; Pulse 64; Resp 16; Pulse Ox 100% ; dd2 18:20 BP 208 / 84; Pulse 73; Resp 16; Pulse Ox 100% ; dd2 18:25 BP 203 / 73; Pulse 72; Resp 16; Pulse Ox 100% ; dd2 18:30 BP 193 / 76; Pulse 71; Resp 16; Pulse Ox 100% ; dd2 18:35 BP 198 / 74; Pulse 72; Resp 16; Pulse Ox 100% ; dd2 18:40 BP 199 / 69; Pulse 72; Resp 16; Pulse Ox 100% ; dd2 18:45 BP 192 / 70; Pulse 69; Resp 16; Pulse Ox 100% ; dd2 18:47 Weight 89.54 kg; dd2 18:50 BP 235 / 83; Pulse 85; Resp 16; Pulse Ox 100% ; dd2 18:50 BP 157 / 58; Pulse 66; Resp 16; Pulse Ox 100% ; dd2 19:15 BP 167 / 55; Pulse 69; Resp 99; Pulse Ox 19% on ETT vent; FiO2 30 %; jb4 19:45 BP 151 / 54; Pulse 66; Resp 19; Pulse Ox 99% on ETT vent; FiO2 30 %; jb4 20:15 BP 119 / 78; Pulse 72; Resp 22; Pulse Ox 100% on ETT vent; FiO2 30 %; jb4 20:45 BP 122 / 72; Pulse 68; Resp 18; Pulse Ox 100% on ETT vent; FiO2 30 %; jb4 21:13 BP 142 / 54; Pulse 68; Resp 15; Pulse Ox 100% on ETT vent; FiO2 30 %; jb4 21:43 BP 102 / 50; Pulse 61; Resp 18; Pulse Ox 99% ; FiO2 30 %; jb4 17:18 UNABLE TO OBTAIN INITIAL BP db ED Course: 17:28 Patient arrived in ED. bd 17:28 Inserted saline lock: 22 gauge in left wrist, using aseptic technique. Flushed with 10 zm mL NS. 17:28 Initial lab(s) drawn, by me, sent to lab. zm 17:28 Patient has correct armband on for positive identification. Allergy band placed. Placed ko1 in gown. Bed in low position. Call light in reach. Side rails up X2. Provided Education on: jintubation. Client placed on continuous cardiac and pulse oximetry monitoring. NIBP monitoring applied. residential monitor on. Door closed. Noise minimized. Lights dimmed. Warm blanket given. Pillow given. 17:34 Assisted provider with intubation using via oral route. ET tube secured at 23cm at the db teeth. Set up intubation tray. Intubated by Lori Root MD Placement verified by CO2 detector w/ + color change, auscultating bilateral breath sounds, Patient tolerated well. 17:35 Lori Root MD is Attending Physician. sp3 17:35 Report given to AREA RN ULICES AND BEBE. db 17:46 Basic Metabolic Panel Sent. zm 17:46 CBC with Diff Sent. zm 17:46 LFT's Sent. zm 17:46 Magnesium Sent. zm 17:46 PT-INR Sent. zm 17:46 NT PRO-BNP Sent. zm 17:46 Troponin HS Sent. zm 17:49 Triage completed. db 17:50 Arm band placed on Patient placed in an exam room. db 18:00 EKG done, by ED staff, reviewed by Lori Root MD. Palomino cath inserted, using sterile ko1 technique, 16 Fr., by ED staff, balloon inflated, to gravity drainage, Patient tolerated well. 18:10 XRAY Chest (1 view) In Process Unspecified. EDMS 18:23 MACARIO GRIJALVA, BENIGNO is Primary Nurse. dd2 18:28 Kwan Mendez MD is Hospitalizing Provider. sp3 19:21 CXR XRAY In Process Unspecified. EDMS 23:01 Patient admitted, IV remains in place. jb4 Administered Medications: 17:29 Drug: Etomidate IVP 20 mg IVP once Route: IVP; Site: right antecubital; dd2 17:44 Follow up: Response: No adverse reaction dd2 17:30 Drug: Rocuronium IVP 80 mg IVP once Route: IVP; Site: right antecubital; dd2 17:45 Follow up: Response: No adverse reaction dd2 17:55 Drug: Propofol IVP 40 mg IVP once; Document RASS score. Route: IVP; Site: right dd2 antecubital; 17:55 Follow up: Response: RASS: Deep sedation (-4) dd2 18:10 Follow up: Response: No adverse reaction dd2 17:55 Drug: Propofol IV 5 mcg/kg/min IV at calculated rate See Administration Instructions; dd2 Standard concentration 1000 mg / 100 mL; Recommended max rate 50 mcg/kg/min; Titrate 2 mcg/kg/min every 5 minutes to achieve goal (see titration policy); Goal parameter RASS score 0 to -2 Route: IV; Rate: calculated rate; Site: right antecubital; 17:55 Follow up: Response: RASS: Deep sedation (-4) dd2 18:10 Follow up: Response: No adverse reaction dd2 18:20 Follow up: Response: RASS: Deep sedation (-4); Rate change 12 mcg/kg/min dd2 18:25 Follow up: Response: RASS: Deep sedation (-4); Rate change 14 mcg/kg/min dd2 18:30 Follow up: Response: RASS: Deep sedation (-4); Rate change 16 mcg/kg/min dd2 18:35 Follow up: Response: RASS: Deep sedation (-4); Rate change 18 mcg/kg/min dd2 18:40 Follow up: Response: RASS: Deep sedation (-4); Rate change 20 mcg/kg/min dd2 20:20 Follow up: Rate change 20 mcg/kg/min jb4 21:05 Follow up: Rate change 25 mcg/kg/min jb4 22:20 Follow up: Rate change 30 mcg/kg/min; IV Status: Infusion continued upon admission jb4 22:30 Drug: Midazolam IVP or IV 2 mg IVP once Route: IVP; Site: left hand; jb4 22:59 Follow up: Response: No adverse reaction; Marked relief of symptoms; RASS: Moderate jb4 sedation (-3) 22:30 Drug: fentaNYL (PF) IVP 25 mcg IVP once Route: IVP; Site: left hand; jb4 22:58 Follow up: Response: No adverse reaction; Marked relief of symptoms; RASS: Moderate jb4 sedation (-3) Outcome: 18:29 Decision to Hospitalize by Provider. sp3 23:01 Admitted to ICU accompanied by nurse, via stretcher, room 3, with oxygen, on monitor, jb4 with chart, Report called to BENIGNO Camp 23:01 Condition: improved 23:01 Discharge instructions given to family, Instructed on the need for admit, Demonstrated understanding of instructions, 23:02 Patient left the ED. jb4 Signatures: Dispatcher [employer] EDMS Stephanie Johnson James RN RN jb4 Lori Root MD MD sp3 Glo Reddy Kathy, RN RN ko1 Stephanie Cobb RN RN db MACARIO GRIJALVA RN RN dd2 Corrections: (The following items were deleted from the chart) 18:07 18:05 [facility] ED Fall Risk Assessment (Adult) History of falling in the last 3 months, ko1 including since admission No falls in past 3 months (0 pts) Confusion or Disorientation No (0 pts) Intoxicated or Sedated No (0 pts) Impaired Gait No (0 pts) Mobility Assist Device Used No (0 pt) Altered Elimination No (0 pt) Score/Fall Risk Level 0 - 2 = Low Risk Oriented to surroundings, Maintained a safe environment, Educated pt \T\ family on fall prevention, incl call for assistance when getting out of bed, Assessed \T\ reinforced patient's understanding of fall precautions, Provided non-skid footwear, Hourly rounding (assess needs \T\ fall precautionary measures) done, ko1 18:50 18:48 Propofol IV 447.7 mcg/min IV at calculated rate in right antecubital dd2 dd2 18:50 18:48 Propofol IVP 40 mg IVP in right antecubital dd2 dd2 21:25 21:13 BP 142 / 54; Pulse 68bpm; Resp 15bpm; Pulse Ox 100% ET / Ventilator FiO2 100%; [id number]
--- NOTE | 2024-07-09 18:30 | EDPHYS ---
Physician Documentation [facility] Name: Dari Miguel Age: 74 yrs Sex: Female : 1950 Arrival Date: 07/09/2024 Time: 17:26 Bed 2 Private MD: ED Physician Lori Root HPI: 07/09 18:19 This 74 yrs old Female presents to ER via EMS with complaints of Respiratory sp3 Distress, Allergic Reaction. 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 Multiple rounds of epinephrine were administered prior to arrival coupled with a total of 75 mg of oral and IV combined Benadryl. History, physical and ROS severely limited secondary to patient distress. Limited history from EMS and physician medical staff services coordinator who was on the call presented to me upon arrival. Patient was immediately placed in a trauma room and critical care process started including intubation. Please see [facility] for further notes regarding this.. Historical: - Allergies: 17:18 Peanut; db 17:18 PECANS; db - PMHx: 17:18 acid reflux; Anxiety; Atrial fibrillation; depressive disorder; Hyperlipidemia; db Hyperlipidemia; Hypertension; - Immunization history:: Adult Immunizations unknown. - Infectious Disease History:: Denies. - Social history:: Smoking status: unknown. ROS: 18:20 Unable to obtain ROS due to patient distress, sp3 Exam: 18:20 Constitutional: The patient appears Patient arrived in distress with swollen neck and sp3 difficulty breathing coupled with extremely hoarse voice. Decision was made after discussing this briefly with the patient on intubation for temporary airway control until swelling subsides. Patient gave verbal consent prior to family arriving. Patient was immediately placed in trauma room and intubation process started. Grossly remainder of exam although limited nature demonstrated no significant abnormality including no systemic hives, decrease in air movement, abdominal distention, or any other abnormality or bleeding. 18:20 Unable to obtain exam due to patient distress, 18:30 ECG was reviewed by the Attending Physician. EKG demonstrates normal sinus rhythm at 70 sp3 bpm with normal intervals, normal QRS, normal axis, nonspecific diffuse ST/T changes without evidence of acute ischemia. Vital Signs: 17:18 Pulse 76; Resp 28; Pulse Ox 97% on Nebulizer Mask; db 17:34 BP 164 / 96; Pulse 77; Resp 26; Pulse Ox 100% on ETT ambu; db 17:52 BP 121 / 53; Pulse 73; Resp 16; Pulse Ox 100% ; dd2 18:00 BP 85 / 46; Pulse 64; Resp 16; Pulse Ox 100% ; dd2 18:05 BP 77 / 45; Pulse 64; Resp 16; Pulse Ox 100% ; dd2 18:20 BP 208 / 84; Pulse 73; Resp 16; Pulse Ox 100% ; dd2 18:25 BP 203 / 73; Pulse 72; Resp 16; Pulse Ox 100% ; dd2 18:30 BP 193 / 76; Pulse 71; Resp 16; Pulse Ox 100% ; dd2 18:35 BP 198 / 74; Pulse 72; Resp 16; Pulse Ox 100% ; dd2 18:40 BP 199 / 69; Pulse 72; Resp 16; Pulse Ox 100% ; dd2 18:45 BP 192 / 70; Pulse 69; Resp 16; Pulse Ox 100% ; dd2 18:47 Weight 89.54 kg; dd2 18:50 BP 235 / 83; Pulse 85; Resp 16; Pulse Ox 100% ; dd2 18:50 BP 157 / 58; Pulse 66; Resp 16; Pulse Ox 100% ; dd2 19:15 BP 167 / 55; Pulse 69; Resp 99; Pulse Ox 19% on ETT vent; FiO2 30 %; jb4 19:45 BP 151 / 54; Pulse 66; Resp 19; Pulse Ox 99% on ETT vent; FiO2 30 %; jb4 20:15 BP 119 / 78; Pulse 72; Resp 22; Pulse Ox 100% on ETT vent; FiO2 30 %; jb4 20:45 BP 122 / 72; Pulse 68; Resp 18; Pulse Ox 100% on ETT vent; FiO2 30 %; jb4 21:13 BP 142 / 54; Pulse 68; Resp 15; Pulse Ox 100% on ETT vent; FiO2 30 %; jb4 21:43 BP 102 / 50; Pulse 61; Resp 18; Pulse Ox 99% ; FiO2 30 %; jb4 17:18 UNABLE TO OBTAIN INITIAL BP db Procedures: 18:27 Intubation: Ventilated with 100% NRB prior to procedure. using [place] scope on second sp3 attempt with 7.5 mm ETT. Successful on second attempt. Ventilated with Ambu bag. Cricoid pressure applied during procedure. Tube secured with ETT mejia Placement verified by CXR, CO2 detector with (+) color change, auscultating bilateral breath sounds, O2 saturation after procedure was 100 %. Patient tolerated well. MDM: 17:35 Patient medically screened. sp3 18:25 Data reviewed: vital signs, nurses notes, EMS record, lab test result(s), radiologic sp3 studies. ED course: Patient intubated on second attempt after primary temp with 4 oh Mac blade and 7.5 ET tube unsuccessful due to extreme edema in the oropharynx. [place] scope then used and 7.5 tube was passed barely through the cords after light pressure with subsequent CO2 color change and air exchange. Patient placed on monitor, ventilator and I discussed all of this with the family who is now at bedside. Remainder of workup pending. No further medications are to be given due to the unknown quantities and amount of medicines given prehospital, understandably so. Patient on propofol and we will add Pepcid as well.. 07/09 17:40 Order name: Basic Metabolic Panel; Complete Time: 18:33 [facility] 07/09 17:40 Order name: CBC with Diff; Complete Time: 19:54 [facility] 07/09 17:40 Order name: LFT's; Complete Time: 18:33 [facility] 07/09 17:40 Order name: Magnesium; Complete Time: 18:33 [facility] 07/09 17:40 Order name: NT PRO-BNP; Complete Time: 18:33 [facility] 07/09 17:40 Order name: PT-INR; Complete Time: 18:30 [facility] 07/09 17:40 Order name: Troponin HS; Complete Time: 18:33 [facility] 07/09 17:43 Order name: ABG; Complete Time: 18:30 3 07/09 19:44 Order name: Manual Differential; Complete Time: 19:54 [facility] 07/09 20:42 Order name: Comprehensive Metabolic Panel [facility] 07/09 20:42 Order name: Comprehensive Metabolic Panel [facility] 07/09 20:42 Order name: Comprehensive Metabolic Panel [facility] 07/09 20:42 Order name: Comprehensive Metabolic Panel [facility] 07/09 20:42 Order name: Comprehensive Metabolic Panel [facility] 07/09 20:42 Order name: Lipid Profile [facility] 07/09 20:42 Order name: Lipid Profile [facility] 07/09 20:42 Order name: Magnesium [facility] 07/09 20:42 Order name: Magnesium [facility] 07/09 20:42 Order name: Magnesium [facility] 07/09 20:42 Order name: Magnesium [facility] 07/09 20:42 Order name: Troponin High Sensitivity [facility] 07/09 20:42 Order name: Troponin High Sensitivity [facility] 07/09 20:42 Order name: Troponin High Sensitivity [facility] 07/09 20:42 Order name: ABG Arterial Blood Gas [facility] 07/09 17:40 Order name: XRAY Chest (1 view); Complete Time: 18:40 sp3 07/09 18:46 Order name: CXR XRAY; Complete Time: 19:54 sp3 07/09 20:42 Order name: Abdomen 1 View (KUB) [facility] 07/09 17:40 Order name: EKG; Complete Time: 17:40 sp3 07/09 20:42 Order name: CONS Physician Consult [facility] 07/09 17:40 Order name: Cardiac monitoring; Complete Time: 18:19 sp3 07/09 17:40 Order name: EKG - Nurse/Tech; Complete Time: 18:21 sp3 07/09 17:40 Order name: IV Saline Lock; Complete Time: 17:46 sp3 07/09 17:40 Order name: Labs collected and sent; Complete Time: 17:46 sp3 07/09 17:40 Order name: O2 Per Protocol; Complete Time: 18:19 sp3 07/09 17:40 Order name: O2 Sat Monitoring; Complete Time: 18:19 sp3 07/09 18:45 Order name: Misc. Order: Pull back ETT 2 cm (I discussed with resp); Complete Time: sp3 18:48 Administered Medications: 17:29 Drug: Etomidate IVP 20 mg IVP once Route: IVP; Site: right antecubital; dd2 17:44 Follow up: Response: No adverse reaction dd2 17:30 Drug: Rocuronium IVP 80 mg IVP once Route: IVP; Site: right antecubital; dd2 17:45 Follow up: Response: No adverse reaction dd2 17:55 Drug: Propofol IVP 40 mg IVP once; Document RASS score. Route: IVP; Site: right dd2 antecubital; 17:55 Follow up: Response: RASS: Deep sedation (-4) dd2 18:10 Follow up: Response: No adverse reaction dd2 17:55 Drug: Propofol IV 5 mcg/kg/min IV at calculated rate See Administration Instructions; dd2 Standard concentration 1000 mg / 100 mL; Recommended max rate 50 mcg/kg/min; Titrate 2 mcg/kg/min every 5 minutes to achieve goal (see titration policy); Goal parameter RASS score 0 to -2 Route: IV; Rate: calculated rate; Site: right antecubital; 17:55 Follow up: Response: RASS: Deep sedation (-4) dd2 18:10 Follow up: Response: No adverse reaction dd2 18:20 Follow up: Response: RASS: Deep sedation (-4); Rate change 12 mcg/kg/min dd2 18:25 Follow up: Response: RASS: Deep sedation (-4); Rate change 14 mcg/kg/min dd2 18:30 Follow up: Response: RASS: Deep sedation (-4); Rate change 16 mcg/kg/min dd2 18:35 Follow up: Response: RASS: Deep sedation (-4); Rate change 18 mcg/kg/min dd2 18:40 Follow up: Response: RASS: Deep sedation (-4); Rate change 20 mcg/kg/min dd2 20:20 Follow up: Rate change 20 mcg/kg/min jb4 21:05 Follow up: Rate change 25 mcg/kg/min jb4 22:20 Follow up: Rate change 30 mcg/kg/min; IV Status: Infusion continued upon admission jb4 22:30 Drug: Midazolam IVP or IV 2 mg IVP once Route: IVP; Site: left hand; jb4 22:59 Follow up: Response: No adverse reaction; Marked relief of symptoms; RASS: Moderate jb4 sedation (-3) 22:30 Drug: fentaNYL (PF) IVP 25 mcg IVP once Route: IVP; Site: left hand; jb4 22:58 Follow up: Response: No adverse reaction; Marked relief of symptoms; RASS: Moderate jb4 sedation (-3) Disposition Summary: 07/09/24 18:29 Hospitalization Ordered Notes: Hospitalization Status: Inpatient Admission sp3 Provider: Kwan Mendez Location: Intensive Care Unit sp3 Condition: Critical sp3 Problem: an acute exacerbation sp3 Symptoms: have worsened sp3 Bed/Room Type: Standard sp3 Room Assignment: 3-(07/09/24 20:56) fernanda Diagnosis - Anaphylaxis, airway compromise, intubation by physician sp3 Forms: - Medication Reconciliation Form sp3 - SBAR form sp3 - Leadership Thank You Letter sp3 Critical care time excluding procedures: 18:28 Critical care time: Bedside Care: 15 minutes, Consultation: 10 minutes, Family sp3 Intervention: 10 minutes. Total time: 35 minutes Signatures: Dispatcher [employer] EDRosemary Camarillo RN RN Armando Landeros RN RN jb4 Lori Root MD MD sp3 Indira Sanchez RN RN ko1 Stephanie Cobb RN MACARIO Cheng RN RN dd2 Corrections: (The following items were deleted from the chart) 20:56 18:29 sp3 fernanda
[2024-07-09 18:32] LABS: Albumin 2.9 g/dL (3.4-5.0); Albumin/Globulin Ratio 0.9 (1.1-1.8); Anion Gap 10.7 mEq/L (5.0-15.0); Bilirubin Direct 0.2 mg/dL (0-0.2); Bilirubin Indirect, Calculated 0.3 mg/dL (0.2-0.8); Bilirubin Total 0.5 mg/dL (0.2-1.0); Globulin 3.2 g/dL (2.3-3.5); Magnesium 1.7 mg/dL (1.6-2.4); Potassium 2.7 mEq/L (3.5-5.1); Protein, Total 6.1 g/dL (6.4-8.2); Troponin High Sensitivity 7.5 pg/mL (<58.9)
--- NOTE | 2024-07-09 18:39 | RAD REPORT ---
EXAM DESCRIPTION: [place] Single View07/09/2024 6:08 pm CLINICAL HISTORY: Device placement endotracheal tube placement IMPRESSION: An endotracheal tube has been inserted into the right mainstem bronchus
[2024-07-09 19:43] LABS: Differential Total Cells Count 100; Lymphocytes 59 % (15-42); Monocytes 4 % (0-10); Platelet Estimate ADEQ; Segmented Neutrophils 37 % (40-80)
[2024-07-09 19:44] LABS: Blood Morphology Comment NOT SEEN (NOT SEEN)
--- NOTE | 2024-07-09 19:49 | RAD REPORT ---
EXAM DESCRIPTION: [place] Single View07/09/2024 7:19 pm CLINICAL HISTORY: Device placement endotracheal tube placement IMPRESSION: An endotracheal tube has been retracted. The tip lies 5 millimeters above the rahat
--- NOTE | 2024-07-09 20:25 | P.HP ---
Certification for Inpatient With expected LOS: >2 Midnights Patient will require the following post-hospital care: None Practitioner: I am a practitioner with admitting privileges, knowledge of patient current condition, hospital course, and medical plan of care. Services: Services provided to patient in accordance with Admission requirements found in Title 42 Section 412.3 of the Code of Federal Regulations Patient History Date of Service: 07/09/24 Reason for admission: Difficulty breathing History of Present Illness: 74-year-old female with past medical history of HTN/atrial fibrillation, CAD status post recent PCI to the right coronary artery 1 month ago;depression/anxiety, history of allergy to peanuts; who was eating at [employer] earlier this afternoon and developed sudden facial redness, swelling as well as difficulty with breathing. Son has given her a dose of EpiPen but symptoms continue to worsen. EMS were called. She received 2 more rounds of Ep iPen as well as 2 doses of 25 mg Benadryl and 125 mg Solu-Medrol but symptoms still continue to worsen. Patient was brought to the emergency room and was noted to be having worsening stridor. She was intubated by the ER physician. Intubation was described as difficult as uvula and trachea wall was edematous. Postintubation patient have about 20 cc of bloody sputum aspirated. She is doing well on vent now. ABG was within expected range and vent settings reduced now. History obtained from ER physician and ER nurse since discussion. Family not at bedside. She has been admitted for acute anaphylaxis with respiratory failure. EKG shows normal sinus rhythm with no ST segment changes. CBC was unremarkable. BMP shows potassium of 2.7, proBNP of 1155, troponin was negative at 7.5 Allergies tree nut Allergy (Verified 06/06/24 02:51) Anaphylaxis Pecans Allergy (Severe, Uncoded 06/06/24 02:51) Anaphylaxis Home Medications: Atorvastatin Calcium [Lipitor] 40 mg PO BEDTIME 01/03/17 Furosemide [Lasix*] 20 mg PO DAILY 01/03/17 Amiodarone HCl 200 mg PO DAILY 05/25/23 Omeprazole [Prilosec] 40 mg PO DAILY 05/25/23 Amlodipine [Norvasc*] 10 mg PO DAILY 06/05/24 Aspirin Chewable [Aspirin Chewable*] 81 mg PO DAILY 06/05/24 Isosorbide Mononitrate [Isosorbide Mononitrate ER] 30 mg PO DAILY 06/05/24 Loratadine [Claritin*] 10 mg PO DAILYPRN PRN 06/05/24 Sertraline [Zoloft*] 100 mg PO DAILY 06/05/24 carvediloL [Coreg*] 12.5 mg PO BID 06/05/24 clonazePAM [Clonazepam] 0.5 mg PO BIDP PRN 06/05/24 Spironolactone [Aldactone*] 25 mg PO DAILY 30 Days #30 tab 06/08/24 Ticagrelor [Brilinta*] 90 mg PO BID 30 Days #60 tab 06/08/24 - Past Medical/Surgical History Diabetic: No -: Hypertension -: Acid reflux -: Hyperlipidemia -: Atrial fibrillation -: Depression/anxiety -: Coronary artery stent -: right shoulder sx - Social History Smoking Status: Unknown if ever smoked Smoking therapy provided: No Patient receptive to therapy: No Alcohol use: No CD- Drugs: No Caffeine use: Yes Place of Residence: Home Physical Examination - Vital Signs Pulse: 71 Pulse Ox (%): 100 - Physical Exam General: Obese, Other (Sedated, orally tube, on vent, ) HEENT: Atraumatic, Normocephalic, PERRLA, Other (Notable tongue edema) Neck: Supple, 2+ carotid pulse no bruit, JVD not distended Cardiovascular: Normal pulses, Regular rate/rhythm, Normal S1 S2 Gastrointestinal: Normal bowel sounds, Soft and benign, Non-distended, No tenderness Musculoskeletal: No clubbing, No swelling Integumentary: No breakdown, No significant lesion, No tenderness/swelling, No erythema Neurological: Normal strength at 5/5 x4 extr, Sensation intact, Cranial nerves 3-12 intact, Other (Sedated) Urinary: [place] catheter - Studies Laboratory Data (last 24 hrs) 07/09/24 07/09/24 07/09/24 17:43 17:43 17:43 WBC 8.80 Hgb 11.1 L Hct 32.6 L Plt Count 349 PT 22.0 H INR 2.00 Sodium 141 Potassium 2.7 L BUN 12 Creatinine 0.97 Glucose 154 H Magnesium 1.7 Total Bilirubin 0.5 AST 56 H ALT 61 H Alkaline Phosphatase 100 Assessment and Plan - Problems (Diagnosis) (1) Anaphylaxis Current Visit: Yes Status: Acute (2) Atrial fibrillation Current Visit: No Status: Acute (3) CAD (coronary artery disease) Current Visit: No Status: Acute (4) Diastolic heart failure Current Visit: No Status: Acute - Plan Impression Acute anaphylaxisdue to recent food ingestion-unclear if containing peanuts Acute respiratory failuredue to airway edema History of CAD status post recent PCI Hypertension Atrial fibrillation Plan Acute anaphylaxiscontinue IV Benadryl and Solu-Medrol Q's 6 for now Monitor tongue edema Follow vent setting as well as peak airway flow Pulmonary consult in a.m. Acute respiratory failureon vent, follow pulmonary Add propofol for sedation Daily ABGs Adjust vent setting, on minimal FiO2 of 30 with PEEP of 5 now. Possible extubation in a.m. History of A-fibnot on any anticoagulation, subcutaneous Lovenox for now Resume amiodarone in a.m. Currently in sinus rhythm Hypertensioncontrolled DVT prophylaxisLovenox Advance directivefull code Dispositionpossible hospital stay for 24 to 48 hours - Advance Directives Does patient have a Living Will: No Does patient have a Durable POA for Healthcare: No - Code Status/Comfort Care Code Status: Full Code Physician Review: Patient Assessed, Agree with Above Assessment and Plan Time Spent Managing Pts Care (In Minutes): 70
[2024-07-09] MEDS: FUROSEMIDE 40 MG/4 ML VIAL IV ONE (20:33)
[2024-07-09] MEDS ORDERED: guaiFENesin 100 MG/5 ML UCUP PO PRN (20:33)
[2024-07-09] MEDS ORDERED: DIPHENHYDRAMINE 50 MG/ML VIAL IV PRN (20:34)
[2024-07-09] MEDS: POTASSIUM CL 40 MEQ in NA CHLORIDE 0.9% 500 ML IV SCH (21:00)
[2024-07-09] MEDS ORDERED: ROCURONIUM 50 MG/5 ML VIAL IV ONE (21:00)
[2024-07-09] MEDS ORDERED: ETOMIDATE 20 MG/10 ML VIAL IV ONE (21:00)
[2024-07-09] MEDS: NS KCL 20MEQ 20 MEQ/1,000 ML BAG IV SCH (21:00)
[2024-07-09] MEDS ORDERED: MIDAZOLAM HCL 2 MG/2 ML INJ ONE (22:20)
[2024-07-09] MEDS ORDERED: FENTANYL CITR 100 MCG/2 ML ONE (22:20)
[2024-07-09] MEDS ORDERED: HALOPERIDOL LACT 5 MG/ML INJ IV PRN (23:21)
[2024-07-09] MEDS ORDERED: NA CHLORIDE 0.9% 250 ML IV PRN (23:21)
[2024-07-10] MEDS: Ringers Lactate 1,000 ML IV SCH (00:17)
[2024-07-10] MEDS: LORazepam 2 MG/ML VIAL IV PRN (00:18)
[2024-07-10] MEDS: METHYLPREDNISOLONE 125 MG INJ IV SCH ×2 (00:19→16:08)
[2024-07-10] MEDS: KCL 20 MEQ/100 mL IVPB 100 ML IV SCH (00:20)
[2024-07-10] MEDS: FAMOTIDINE 20 MG/2 ML VIAL IV SCH (00:20)
[2024-07-10] MEDS: FUROSEMIDE 40 MG/4 ML VIAL IV ONE (00:25)
[2024-07-10] MEDS: MIDAZOLAM HCL 2 MG/2 ML INJ IV PRN (00:40)
[2024-07-10] MEDS: IPRATROPIUM BROM 0.5MG/2.5ML NEB SCH (01:55)
[2024-07-10] MEDS: propofoL 1,000 MG/100 ML VIAL IV SCH (03:19)
[2024-07-10 06:07] LABS: Albumin 2.9 g/dL (3.4-5.0); Albumin/Globulin Ratio 0.9 (1.1-1.8); Anion Gap 8.8 mEq/L (5.0-15.0); Bilirubin Total 0.3 mg/dL (0.2-1.0); Globulin 3.1 g/dL (2.3-3.5); Magnesium 1.8 mg/dL (1.6-2.4); Potassium 2.8 mEq/L (3.5-5.1); Troponin High Sensitivity 8.9 pg/mL (<58.9)
[2024-07-10] MEDS ORDERED: KCL 20 MEQ/100 mL IVPB 20 MEQ/100 ML BAG IV SCH (08:00)
[2024-07-10] MEDS: ENOXAPARIN 40 MG/0.4 ML SQ SCH (08:29)
[2024-07-10] MEDS: MAGNESIUM SULFATE 1 gm IVPB 1 GM/100 ML BAG IV ONE (08:29)
[2024-07-10] MEDS: POTASSIUM PHOS 30 MM in NA CHLORIDE 0.9% 500 ML IV SCH (08:29)
--- NOTE | 2024-07-10 09:26 | P.PN ---
Subjective Date of Service: 07/10/24 Chief Complaint: Difficulty breathing Pt is intubated and sedated. No bloody output from the ET tube. Waiting for NG tube placement. Pulm is managing. PEEF is 5 and Fio2 is 30%. No other complaints. Review of Systems is unable to be obtained Physical Examination - Vital Signs Temperature: 97.9 F Blood Pressure: 122/46 Pulse: 58 Respirations: 16 Pulse Ox (%): 97 - Physical Exam General: In no apparent distress, Unresponsive HEENT: Atraumatic, Normocephalic Neck: Supple, 2+ carotid pulse no bruit, JVD not distended Respiratory: Clear to auscultation bilaterally, Normal air movement Cardiovascular: No edema, Normal pulses, Regular rate/rhythm Capillary refill: <2 Seconds Gastrointestinal: Normal bowel sounds, Soft and benign, Non-distended Musculoskeletal: No clubbing, No swelling, No contractures Integumentary: No rashes, No breakdown, No significant lesion Neurological: Normal tone, Other (sedated) Lymphatics: No axilla or inguinal lymphadenopathy - Studies Laboratory Data (last 24 hrs) 07/09/24 07/09/24 07/09/24 17:43 17:43 17:43 WBC 8.80 Hgb 11.1 L Hct 32.6 L Plt Count 349 PT 22.0 H INR 2.00 Sodium 141 Potassium 2.7 L BUN 12 Creatinine 0.97 Glucose 154 H Magnesium 1.7 Total Bilirubin 0.5 AST 56 H ALT 61 H Alkaline Phosphatase 100 Assessment And Plan - Plan Acute anaphylaxis: Pt is allergic to peanut. She had the episode after eating at a restaurant and she received 3 doses of Epipen. Will continue solumedrol and benadryl. The facial swelling is improving. Pt is intubated. Pulm is managing vent. Acute respiratory failure: Pulm is managing vent, PEEP is 5 and Fio2 is 30%. Sedated with propofol. Hypokalemia: K is 2.8. Will replete and monitor. Hypomagnesemia: Mag is 1.8. Will replete and monitor. History of A-fib: Continue telemetry, amiodarone when able to swallow. No anticoagulation due to bleeding in ET tube. Currently in NSR. Hypertension: Monitor BP. DVT ppx: Lovenox Code: full code Dispo: Pending hospital course. Physician Review: Patient Assessed, Agree with Above Assessment and Plan
[2024-07-10 10:15] LABS: Arterial Blood Carboxyhemoglob 0.8 % (0-1.5); Blood Gas Oxyhemoglobin 95.2 % (94-97); Blood Gas THB 10.4 g/dl (12-18); Blood O2 Saturation 97.3 % (92-98.5)
[2024-07-10] MEDS: DEXMEDETOMIDINE HCL 200 MCG in NA CHLORIDE 0.9% 98 ML IV SCH (10:35)
[2024-07-10] MEDS: FENTANYL CITR 100 MCG/2 ML IV PRN (11:30)
--- NOTE | 2024-07-10 11:32 | P.CNS ---
Date of Consult: 07/10/24 Reason for Consult: Anaphylactic shock Chief Complaint: Difficulty breathing History of Present Illness: Patient is 74 years of age admitted with anaphylactic shock secondary to allergy to peanuts plaint of sudden onset of facial redness swelling difficulty br eathing apparently she did not take her EpiPen with her at this time patient was admitted intubated currently her lips and tongue are swollen twice stable Allergies tree nut Allergy (Verified 06/06/24 02:51) Anaphylaxis Pecans Allergy (Severe, Uncoded 06/06/24 02:51) Anaphylaxis Home Medications: Atorvastatin Calcium [Lipitor] 40 mg PO BEDTIME 01/03/17 Furosemide [Lasix*] 20 mg PO DAILY 01/03/17 Amiodarone HCl 200 mg PO DAILY 05/25/23 Omeprazole [Prilosec] 40 mg PO DAILY 05/25/23 Amlodipine [Norvasc*] 10 mg PO DAILY 06/05/24 Aspirin Chewable [Aspirin Chewable*] 81 mg PO DAILY 06/05/24 Isosorbide Mononitrate [Isosorbide Mononitrate ER] 30 mg PO DAILY 06/05/24 Loratadine [Claritin*] 10 mg PO DAILYPRN PRN 06/05/24 Sertraline [Zoloft*] 100 mg PO DAILY 06/05/24 carvediloL [Coreg*] 12.5 mg PO BID 06/05/24 clonazePAM [Clonazepam] 0.5 mg PO BIDP PRN 06/05/24 Spironolactone [Aldactone*] 25 mg PO DAILY 30 Days #30 tab 06/08/24 Ticagrelor [Brilinta*] 90 mg PO BID 30 Days #60 tab 06/08/24 - Past Medical/Surgical History Diabetic: No -: Hypertension -: Acid reflux -: Hyperlipidemia -: Atrial fibrillation -: Depression/anxiety -: Coronary artery stent -: right shoulder sx - Social History Smoking Status: Unknown if ever smoked Alcohol use: No CD- Drugs: No Caffeine use: Yes Place of Residence: Home Review of Systems is unable to be obtained Physical Examination Temp Pulse Resp BP Pulse Ox 97.9 F 64 15 149/110 H 99 07/10/24 09:26 07/10/24 11:00 07/10/24 11:00 07/10/24 11:00 07/10/24 11:00 General: Unresponsive Neck: Other (Lips and tongue are swollen) Respiratory: Clear to auscultation bilaterally Cardiovascular: No edema, Regular rate/rhythm, Normal S1 S2 Gastrointestinal: Normal bowel sounds, Soft and benign Laboratory Data (last 24 hrs) 07/09/24 07/09/24 07/09/24 17:43 17:43 17:43 WBC 8.80 Hgb 11.1 L Hct 32.6 L Plt Count 349 PT 22.0 H INR 2.00 Sodium 141 Potassium 2.7 L BUN 12 Creatinine 0.97 Glucose 154 H Magnesium 1.7 Total Bilirubin 0.5 AST 56 H ALT 61 H Alkaline Phosphatase 100 - Problems (1) Anaphylactic shock due to peanuts Current Visit: Yes Status: Acute Plan: Patient is 74 years of age admitted with anaphylactic shock secondary to peanut use possible continue with steroids Benadryl initially satisfactory endotracheal tube position is also satisfactory to her for 1 or 2 days the swelling has decreased labs show mild hypokalemia
--- NOTE | 2024-07-10 11:57 | RAD REPORT ---
EXAMINATION: ONE VIEW CHEST XR CLINICAL INDICATION: Female, 74 years old. . TECHNIQUE: EXAMINATION: ONE VIEW CHEST XR CLINICAL INDICATION: Female, 74 years old. . TECHNIQUE: 1 View, AP supine, X-ray of the chest was performed. [id number]. COMPARISON: July 09, 2024 FINDINGS: Endotracheal tube has its tip at the level of the aortic arch. Nasogastric tube within the stomach Heart remains enlarged Mild bilateral pulmonary opacities.
--- NOTE | 2024-07-10 11:59 | RAD REPORT ---
Exam: NG tube CLINICAL HISTORY: Device placement nasogastric tube placement FINDINGS: Tip of a nasogastric tube lies at the junction of the distal stomach/proximal duodenum.
--- NOTE | 2024-07-10 16:54 | EKG ---
Test Date: 2024-07-09 Test Time: 17:44:29 Hand Paint Mixer: RAFA MEASUREMENT RESULTS: Intervals: Rate: 65 UT: 186 QRSD: 98 QT: 516 QTc: 536 [place]: P: 53 UT: 186 QRS: 63 T: 74 INTERPRETIVE STATEMENTS: Normal sinus rhythm Nonspecific ST abnormality Prolonged QT Abnormal ECG Compared to ECG 06/05/2024 10:28:40 Prolonged QT interval now present ST (T wave) deviation still present Electronically Signed On 07-10-24 16:52:40 CDT by Travis Coello
[2024-07-10] MEDS: ALBUTEROL 2.5 MG/3 ML NEB SOL NEB SCH (20:49)
[2024-07-11 06:06] LABS: Albumin 2.6 g/dL (3.4-5.0); Albumin/Globulin Ratio 0.8 (1.1-1.8); Bilirubin Total 0.3 mg/dL (0.2-1.0); Globulin 3.2 g/dL (2.3-3.5); Protein, Total 5.8 g/dL (6.4-8.2)
[2024-07-11] MEDS ORDERED: KCL 20 MEQ/100 mL IVPB 20 MEQ/100 ML BAG IV ONE (07:00)
--- NOTE | 2024-07-11 08:31 | RAD REPORT ---
EXAM DESCRIPTION: RAD - Chest Single View - 07/11/2024 6:15 am CLINICAL HISTORY: On VENT Chest pain. COMPARISON: <Comparisons> FINDINGS: Portable technique limits examination quality. There is mild subsegmental atelectasis in the right mid lung in the left lung base. Endotracheal tube has its tip to the level of the superior aortic arch. Enteric tube descends into the stomach. The he art is upper limit normal in size.
[2024-07-11] MEDS: POTASSIUM CL 40 MEQ in NA CHLORIDE 0.9% 500 ML IV SCH (08:36)
[2024-07-11] MEDS: POTASSIUM 25 MEQ EFFERV TAB PO ONE (08:44)
--- NOTE | 2024-07-11 10:22 | P.PN ---
Subjective Date of Service: 07/11/24 Chief Complaint: Difficulty breathing Pt is intubated. She responds to touch. No bloody output from the ET tube. Waiting for ENT eval. Pulm wants to extubate her under anesthesia incase she still has angioedema. NG tube placement. Pulm is managing. PEEF is 5 and Fio2 is 30%. No other complaints. Review of Systems is unable to be obtained Physical Examination - Vital Signs Temperature: 98.2 F Blood Pressure: 158/49 Pulse: 54 Respirations: 16 Pulse Ox (%): 95 - Physical Exam General: In no apparent distress, Unresponsive HEENT: Atraumatic, Normocephalic, PERRLA Neck: Supple, 2+ carotid pulse no bruit, JVD not distended Respiratory: Clear to auscultation bilaterally, Normal air movement Cardiovascular: No edema, Normal pulses, Regular rate/rhythm, Normal S1 S2 Capillary refill: <2 Seconds Gastrointestinal: Normal bowel sounds, Soft and benign, Non-distended Musculoskeletal: No clubbing, No swelling, No contractures Integumentary: No rashes, No breakdown, No significant lesion Neurological: Normal gait, Normal speech, Normal strength at 5/5 x4 extr Lymphatics: No axilla or inguinal lymphadenopathy Assessment And Plan - Plan Acute anaphylaxis: Pt is allergic to peanut. She had the episode after eating at a restaurant and she received 3 doses of Epipen. Will continue solumedrol and benadryl. The facial swelling is improving. Pt is intubated. Pulm is managing vent. Will extubate under anesthesia in case she still has angioedema. Waiting for ENT eval. Acute respiratory failure: Pulm is managing vent, PEEP is 5 and Fio2 is 30%. Se dated with propofol. Hypokalemia: K is 3.0 <- 2.8. Will replete and monitor. Hypomagnesemia: Mag is 2.4 <- 1.8. Will monitor. History of A-fib: Continue telemetry, amiodarone when able to swallow. No anticoagulation due to bleeding in ET tube. Currently in NSR. Hypertension: Monitor BP. DVT ppx: Lovenox Code: full code Dispo: Pending hospital course. Physician Review: Patient Assessed, Agree with Above Assessment and Plan
--- NOTE | 2024-07-11 11:38 | P.PN ---
Subjective Date of Service: 07/11/24 Chief Complaint: Respiratory failure angioedema Subjective: Improving (Patient is improving facial swelling is decreased more alert and responsive hemodynamically stable) Review of Systems is unable to be obtained Physical Examination - Vital Signs Temperature: 98.2 F Blood Pressure: 158/49 Pulse: 54 Respirations: 16 Pulse Ox (%): 95 - Physical Exam General: Alert, Cooperative Respiratory: Clear to auscultation bilaterally Cardiovascular: No edema, Regular rate/rhythm, Normal S1 S2 Assessment And Plan - Current Problems (Diagnosis) (1) Anaphylactic shock due to peanuts Current Visit: Yes Status: Acute Plan: Patient admitted admitted with anaphylactic shock the second time patient has been intubated hemodynamically stable labs chemistries all reviewed facial swelling is decreased consult ENT plan to extubate in the OR replace potassium Qualifiers: Encounter type: subsequent encounter Qualified Code(s): T78.01XD - Anaphylactic reaction due to peanuts, subsequent encounter Physician Review: Patient Assessed, Agree with Above Assessment and Plan
[2024-07-11 18:13] VITALS: BMI 38.5
--- NOTE | 2024-07-11 18:20 | P.CNS ---
Date of Consult: 07/11/24 Reason for Consult: airway evaluation Chief Complaint: Respiratory failure angioedema History of Present Illness: Patient admitted with anaphylatic reaction and airway obstruction with difficult intubation in the ER about 48 hours ago. Now with improvement in tongue swelling but clinical concern for airway given initial clinical presentation. Primary team requesting airway evaluation. Allergies peanut Allergy (Severe, Verified 07/10/24 18:12) Anaphylaxis tree nut Allergy (Severe, Verified 07/10/24 18:12) Anaphylaxis Pecans Allergy (Severe, Uncoded 06/06/24 02:51) Anaphylaxis Home Medications: Atorvastatin Calcium [Lipitor] 40 mg PO BEDTIME 01/03/17 Furosemide [Lasix*] 40 mg PO DAILY 01/03/17 Amiodarone HCl 200 mg PO DAILY 05/25/23 Omeprazole [Prilosec] 40 mg PO DAILY 05/25/23 Isosorbide Mononitrate [Isosorbide Mononitrate ER] 30 mg PO DAILY 06/05/24 Sertraline [Zoloft*] 100 mg PO DAILY 06/05/24 carvediloL [Coreg*] 12.5 mg PO BID 06/05/24 clonazePAM [Clonazepam] 0.5 mg PO BIDP PRN 06/05/24 Ticagrelor [Brilinta*] 90 mg PO BID 30 Days #60 tab 06/08/24 Rivaroxaban [Xarelto] 20 mg PO DAILY 07/11/24 - Past Medical/Surgical History Diabetic: No -: Hypertension -: Acid reflux -: Hyperlipidemia -: Atrial fibrillation -: Depression/anxiety -: Coronary artery stent -: right shoulder sx - Social History Smoking Status: Unknown if ever smoked Alcohol use: No CD- Drugs: No Caffeine use: Yes Place of Residence: Home Physical Examination Temp Pulse Resp BP Pulse Ox 97.3 F 56 16 162/50 H 98 07/11/24 16:00 07/11/24 18:00 07/11/24 18:00 07/11/24 18:00 07/11/24 18:00 General: Other (intubated) HEENT: Atraumatic, Normocephalic, Other (tongue completely in mouth) Conclusions/Impression: Respiratory failure, acute. Airway obstruction. Anaphylaxis. NPO at midnight. OR on 729 for direct laryngoscopy, possible tracheostomy if unable to tolerate extubation.
[2024-07-11] MEDS: HYDRALAZINE HCL 20 MG/ML VIAL IV PRN (20:48)
[2024-07-11 21:51] LABS: Magnesium 2.2 mg/dL (1.6-2.4)
[2024-07-12 00:05] LABS: Potassium 4.1 mEq/L (3.5-5.1)
[2024-07-12 05:17] LABS: Absolute Lymphocytes (CBC) 0.4 K/uL (0.7-4.9); Absolute Monocytes 0.4 K/uL (0.1-1.3); Absolute Neutrophil 10.9 K/uL (1.8-8.0); Basophils % 0.3 % (0-1.3); Hematocrit 29.9 % (36.0-45.0); Hemoglobin 9.8 g/dL (12.0-15.0); Lymphocytes % 3.7 % (15.3-44.8); MCH 30.1 pg (27.0-35.0); MCHC 32.6 g/dL (32.0-36.0); MCV 92.2 fL (80-100); MPV 8.7 fL (7.6-11.3); Monocytes % 3.1 % (3.3-12.3); Platelets 216 thou/uL (152-406); RBC Red Blood Cell Count 3.24 M/uL (3.86-4.86); Red Cell Distribution Width 15.1 % (12.1-15.2)
[2024-07-12 05:24] LABS: Neutrophils % 92.9 % (41.7-73.7)
[2024-07-12 05:34] LABS: Albumin 2.2 g/dL (3.4-5.0); Albumin/Globulin Ratio 0.6 (1.1-1.8); Anion Gap 8.9 mEq/L (5.0-15.0); Bilirubin Total 0.3 mg/dL (0.2-1.0); Globulin 3.4 g/dL (2.3-3.5); Potassium 3.9 mEq/L (3.5-5.1); Protein, Total 5.6 g/dL (6.4-8.2)
[2024-07-12] MEDS: EPINEPHRINE 1 MG/ML VIAL ONE (06:45)
[2024-07-12] MEDS: LIDOCAINE HCL/EPINEPHRINE 20 ML MDV ONE (06:45)
[2024-07-12] MEDS ORDERED: FENTANYL CITR 100 MCG/2 ML ONE (06:51)
[2024-07-12] MEDS ORDERED: MIDAZOLAM HCL 2 MG/2 ML INJ ONE (06:51)
[2024-07-12] MEDS ORDERED: ROCURONIUM 50 MG/5 ML VIAL IV ONE (06:51)
[2024-07-12] MEDS ORDERED: propofoL 200 MG/20 ML VIAL IV ONE (07:07)
[2024-07-12] MEDS: EPINEPHRINE INH 0.5 ML VIAL IH ONE (07:53)
[2024-07-12] MEDS: ALBUTEROL 2.5 MG/3 ML NEB SOL ONE (08:05)
[2024-07-12] MEDS: Ringers Lactate 1,000 ML IV ONE (08:25)
--- NOTE | 2024-07-12 08:53 | P.OP ---
Client Experience Manager: NONE,NONE Preoperative diagnosis: anaphylaxis, airway obstruction, acute respiratory failure Postoperative diagnosis: same Primary procedure: direct laryngoscopy, extubation Anesthesia: general Estimated blood loss: nil Specimen: none Findings: mild ecchymosis of posterior pharygeal wall Operative Technique: The patient was positioned on ICU bed with shoulder roll and neck extension. She was given medications including propofol and fentanyl and dexamethasone by anesthesia to allow relaxation and exam. After effect, the oral cavity was suctions and examined including palpation of the tongue and base of tone which were soft and pliable. The Ambrosio laryngoscope was used to perform a direct laryngoscopy which was mildly difficult due to patient anatomy including short neck and small jaw and small mouth opening and relative size of tongue. The glottis was visualized with existing endotracheal tube in place. There was copious purulent secretions in the pharynx which I suspect is from a sinus infection, due at least in part to indwelling of right NGT. After suctioning, the laryngeal anatomy appeared appropriate to consider extubat ion. In conjunction with the anesthesia team, we brought the GlideScope in to place and the CRN-A performed laryngoscopy with GlideScope and concurred that access and visualization was acceptable for extubation and the endotrachel tube was removed under GlideScope visualization. The larynx and glottic opening was adequate to allow ventilation. Bag mask ventilation was then performed for several minutes while the sedation was wearing off. She was noted to have some lower airway tightness and was treated with racemic epinephrine nebulizer and albuterol nebulizer. The patient was directly observed for about 25 minutes in the OR following extubation until she was ventilating spontaneously and hold oxygen saturations >90% with non- rebreather face mask oxygen supplementation. She was felt to be safe from a airway and respiratory standpoint to be transferred and monitored in the PACU and will be transferred back to the ICU when deemed stable and appropriate by the PACU team. Complications: None Implants: none Fluids & blood products: 1L LR Transferred to: Recovery Room Condition: Fair
--- NOTE | 2024-07-12 11:02 | P.PN ---
Subjective Date of Service: 07/12/24 Chief Complaint: Respiratory failure angioedema Pt was extubated in the OR this am by ENT. She is using 4L BNC. The angioedema has improved. No other complaints. Review of Systems General: Unremarkable Eyes: Unremarkable ENT: Unremarkable Respiratory: Unremarkable Cardiovascular: Unremarkable Gastrointestinal: Unremarkable Genitourinary: Unremarkable Musculoskeletal: Unremarkable Integumentary: Unremarkable Neurological: Unremarkable Lymphatics: Unremarkable Physical Examination - Vital Signs Temperature: 98.3 F Blood Pressure: 138/57 Pulse: 90 Respirations: 28 Pulse Ox (%): 97 - Physical Exam General: Alert, In no apparent distress, Oriented x3 HEENT: Atraumatic, Normocephalic, PERRLA Neck: Supple, 2+ carotid pulse no bruit, JVD not distended Respiratory: Clear to auscultation bilaterally, Normal air movement Cardiovascular: No edema, Normal pulses, Regular rate/rhythm, Normal S1 S2 Capillary refill: <2 Seconds Gastrointestinal: Normal bowel sounds, Soft and benign, Non-distended Musculoskeletal: No clubbing, No swelling, No contractures Integumentary: No rashes, No breakdown, No significant lesion Neurological: Normal gait, Normal speech, Normal strength at 5/5 x4 extr Lymphatics: No axilla or inguinal lymphadenopathy Assessment And Plan - Plan Acute anaphylaxis: Pt is allergic to peanut. She had the episode after eating at a restaurant and she received 3 doses of Epipen. Will continue solumedrol and benadryl. The facial swelling has resolved. Pt was extubated this am in the OR by ENT. Pt is using 4L BNC. Acute respiratory failure: Pulm is following. Pt was extubated this am in the OR by ENT. Pt is using 4L BNC. Hypokalemia: K is 3.2 <- 3.0 <- 2.8. Will replete and monitor. Hypomagnesemia: Mag is 2.4 <- 1.8. Will monitor. History of A-fib: Continue telemetry, amiodarone when able to swallow. No anticoagulation due to bleeding in ET tube. Currently in NSR. Hypertension: Monitor BP. DVT ppx: Lovenox Code: full code Dispo: Pending hospital course. Physician Review: Patient Assessed, Agree with Above Assessment and Plan
--- NOTE | 2024-07-12 11:57 | P.PN ---
Subjective Date of Service: 07/12/24 Chief Complaint: Respiratory failure angioedema Subjective: Improving (Patient is doing well extubated complaining of a sore throat) Review of Systems General: Weakness ENT: Throat Pain Respiratory: Cough Physical Examination - Vital Signs Temperature: 98.3 F Blood Pressure: 138/57 Pulse: 90 Respirations: 28 Pulse Ox (%): 97 - Physical Exam General: Alert, Oriented x3 Respiratory: Clear to auscultation bilaterally Cardiovascular: No edema, Regular rate/rhythm Assessment And Plan - Current Problems (Diagnosis) (1) Anaphylactic shock due to peanuts Current Visit: Yes Status: Acute Plan: Patient was extubated this morning complaining of a sore throat otherwise stable chemistries reviewed reduce dose of Solu-Medrol Magic mouthwash labs reviewed stable for transfer Qualifiers: Encounter type: subsequent encounter Qualified Code(s): T78.01XD - Anaphylactic reaction due to peanuts, subsequent encounter Physician Review: Patient Assessed, Agree with Above Assessment and Plan
[2024-07-12] MEDS: DEXMEDETOMIDINE HCL 200 MCG in NA CHLORIDE 0.9% 98 ML IV SCH (15:20)
[2024-07-12] MEDS ORDERED: NA CHLORIDE 0.9% 490 ML with DEXMEDETOMIDINE HCL 1,000 MCG IV SCH ×4 (17:00→18:00)
[2024-07-12] MEDS ORDERED: NA CHLORIDE 0.9% IV SCH (18:00)
[2024-07-12] MEDS ORDERED: DEXMEDETOMIDINE HCL IV SCH (18:00)
[2024-07-12] MEDS: Levofloxacin500mg IV 500 MG/100 ML BAG IV SCH (18:23)
[2024-07-12] MEDS ORDERED: METHYLPREDNISOLONE 40 MG INJ IV SCH (21:00)
[2024-07-13] MEDS: LORazepam 2 MG/ML VIAL IV PRN (00:23)
[2024-07-13] MEDS: HALOPERIDOL LACT 5 MG/ML INJ IV ONE (02:29)
[2024-07-13 05:35] LABS: Absolute Monocytes 0.7 K/uL (0.1-1.3); Absolute Neutrophil 9.8 K/uL (1.8-8.0); Basophils % 0.1 % (0-1.3); Hematocrit 30.3 % (36.0-45.0); Lymphocytes % 8.8 % (15.3-44.8); MCH 30.4 pg (27.0-35.0); MCHC 33.1 g/dL (32.0-36.0); MCV 91.8 fL (80-100); MPV 8.1 fL (7.6-11.3); Monocytes % 6.4 % (3.3-12.3); Neutrophils % 84.7 % (41.7-73.7); Platelets 202 thou/uL (152-406); RBC Red Blood Cell Count 3.31 M/uL (3.86-4.86); Red Cell Distribution Width 15.2 % (12.1-15.2)
[2024-07-13 05:49] LABS: Albumin 2.5 g/dL (3.4-5.0); Albumin/Globulin Ratio 0.8 (1.1-1.8); Anion Gap 9.2 mEq/L (5.0-15.0); Bilirubin Total 0.5 mg/dL (0.2-1.0); Potassium 3.2 mEq/L (3.5-5.1); Protein, Total 5.5 g/dL (6.4-8.2)
[2024-07-13] MEDS: FLUTICASONE 50MCG NASAL SPRAY NAS SCH (07:39)
--- NOTE | 2024-07-13 10:59 | P.PN ---
Subjective Date of Service: 07/13/24 Chief Complaint: Respiratory failure angioedema Pt was extubated in the OR on 07/12/24 by ENT. She is using 2L BNC. The angioedema has improved. She is confused and moving around in bed. We started precedex and prn haldol. No other complaints. Review of Systems is unable to be obtained Physical Examination - Vital Signs Temperature: 98.0 F Blood Pressure: 174/53 Pulse: 92 Respirations: 28 Pulse Ox (%): 96 - Physical Exam General: In no apparent distress, Confused HEENT: Atraumatic, Normocephalic, PERRLA Neck: Supple, 2+ carotid pulse no bruit, JVD not distended Respiratory: Clear to auscultation bilaterally, Normal air movement Cardiovascular: No edema, Normal pulses, Regular rate/rhythm, Normal S1 S2 Capillary refill: <2 Seconds Gastrointestinal: Normal bowel sounds, Soft and benign, Non-distended Musculoskeletal: No clubbing, No swelling, No contractures Integumentary: No rashes, No breakdown, No significant lesion Neurological: Normal gait, Normal speech, Normal strength at 5/5 x4 extr Lymphatics: No axilla or inguinal lymphadenopathy Assessment And Plan - Plan Acute anaphylaxis: Pt is allergic to peanut. She had the episode after eating at a restaurant and she received 3 doses of Epipen. Will continue levaquin, solumedrol and benadryl. The facial swelling has resolved. Pt was extubated on 07/12/24 in the OR by ENT. Pt is using 2L BNC. Disorientation: Likely due to medical problems / ICU delirium. Will continue precedex/ prn haldol. Acute respiratory failure: Pulm is following. Pt was extubated this am in the OR by ENT. Pt is using 2L BNC. Hypokalemia: K is 3.2 <- 3.0 <- 2.8. Will replete and monitor. Hypomagnesemia: Mag is 2.4 <- 1.8. Will monitor. History of A-fib: Continue telemetry, amiodarone when able to swallow. No anticoagulation due to bleeding in ET tube. Currently in NSR. Hypertension: Monitor BP. DVT ppx: Lovenox Code: full code Dispo: Pending hospital course. Physician Review: Patient Assessed, Agree with Above Assessment and Plan
[2024-07-13] MEDS: ALBUTEROL 2.5 MG/3 ML NEB SOL NEB SCH (13:10)
[2024-07-13] MEDS: THIAMINE 200 MG/2 ML INJ IVP SCH (13:48)
[2024-07-13] MEDS: KCL 20 MEQ/100 mL IVPB 20 MEQ/100 ML BAG IV SCH (13:48)
[2024-07-13] MEDS ORDERED: ZIPRASIDONE MESYLA 20 MG/VIAL IM PRN (18:44)
[2024-07-13] MEDS ORDERED: WATER FOR INJ,STERILE 10 ML IM PRN (18:44)
[2024-07-13] MEDS: carvediloL 12.5 MG TAB PO SCH (21:15)
[2024-07-13] MEDS: ATORVASTATIN 40 MG TAB PO SCH (21:15)
[2024-07-13] MEDS: clonazePAM 0.5 MG TAB PO PRN (21:30)
[2024-07-13] MEDS: TICAGRELOR 90 MG TABLET PO SCH (21:30)
[2024-07-14 05:53] LABS: Absolute Eosinophils 0.2 K/uL (0-0.5); Absolute Lymphocytes (CBC) 0.8 K/uL (0.7-4.9); Absolute Monocytes 0.6 K/uL (0.1-1.3); Absolute Neutrophil 6.1 K/uL (1.8-8.0); Basophils % 0.2 % (0-1.3); Eosinophils % 2.1 % (0-4.4); Hematocrit 30.5 % (36.0-45.0); Hemoglobin 10.3 g/dL (12.0-15.0); Lymphocytes % 10.4 % (15.3-44.8); MCHC 33.9 g/dL (32.0-36.0); MCV 91.5 fL (80-100); Monocytes % 7.3 % (3.3-12.3); Nucleated Red Blood Cells % 0.1 % (0-0); Platelets 213 thou/uL (152-406); RBC Red Blood Cell Count 3.33 M/uL (3.86-4.86)
[2024-07-14 06:05] LABS: Anion Gap 9.5 mEq/L (5.0-15.0); Potassium 3.5 mEq/L (3.5-5.1)
[2024-07-14] MEDS: POTASSIUM CL SA 10 MEQ TAB PO ONE (06:46)
[2024-07-14] MEDS: FUROSEMIDE 20 MG TABLET PO SCH (09:03)
[2024-07-14] MEDS: RIVAROXABAN 20 MG TABLET PO SCH (09:04)
[2024-07-14] MEDS: AMIODARONE HCL 200 MG TAB PO SCH (09:04)
[2024-07-14] MEDS: ISOSORBIDE MONO SR 30 MG TAB PO SCH (09:04)
[2024-07-14] MEDS: SERTRALINE HCL 100 MG TAB PO SCH (09:06)
--- NOTE | 2024-07-14 09:39 | P.PN ---
Subjective Date of Service: 07/14/24 Chief Complaint: Respiratory failure angioedema Pt was extubated in the OR on 07/12/24 by ENT. She is using 2L BNC. The angioedema improved. She is AAOx1 and sitting on a chair. Will consult PT. No other complaints. Review of Systems General: Unremarkable Eyes: Unremarkable ENT: Unremarkable Respiratory: Unremarkable Cardiovascular: Unremarkable Gastrointestinal: Unremarkable Genitourinary: Unremarkable Musculoskeletal: Unremarkable Integumentary: Unremarkable Neurological: Confusion Lymphatics: Unremarkable Physical Examination - Vital Signs Temperature: 97.8 F Blood Pressure: 158/58 Pulse: 85 Respirations: 24 Pulse Ox (%): 95 - Physical Exam General: Alert, In no apparent distress, Oriented x1 HEENT: Atraumatic, Normocephalic, PERRLA Neck: Supple, 2+ carotid pulse no bruit Respiratory: Clear to auscultation bilaterally, Normal air movement Cardiovascular: No edema, Normal pulses, Regular rate/rhythm, Normal S1 S2 Capillary refill: <2 Seconds Gastrointestinal: Normal bowel sounds, Soft and benign, Non-distended Musculoskeletal: No clubbing, No swelling, No contractures, No erythema Integumentary: No rashes, No breakdown, No significant lesion, No tenderness/swelling Neurological: Normal gait, Normal speech, Normal strength at 5/5 x4 extr, Normal tone, Sensation intact Lymphatics: No axilla or inguinal lymphadenopathy Assessment And Plan - Plan Acute anaphylaxis: Pt is allergic to peanut. She had the episode after eating at a restaurant and she received 3 doses of Epipen. Will continue levaquin, solumedrol and benadryl. The facial swelling has resolved. Pt was extubated on 07/12/24 in the OR by ENT. Pt is using 2L BNC. Disorientation: Likely due to medical problems / ICU delirium. Will continue precedex/ prn haldol. Acute respiratory failure: Pulm is following. Pt was extubated this am in the OR by ENT. Pt is using 2L BNC. Hypokalemia: K is 3.5 <- 3.2 <- 3.0 <- 2.8. Will replete and monitor. Hypomagnesemia: resolved. Mag is 2.4 <- 1.8. Will monitor. History of A-fib: Continue telemetry, amiodarone when able to swallow. No anticoagulation due to bleeding in ET tube. Currently in NSR. Hypertension: Continue coreg. Deconditioning: Will consult PT DVT ppx: Lovenox Code: full code Dispo: Pending hospital course. Ok to downgrade to med/surg. Physician Review: Patient Assessed, Agree with Above Assessment and Plan
[2024-07-14] MEDS ORDERED: ALBUTEROL 2.5 MG/3 ML NEB SOL NEB PRN (10:21)
--- NOTE | 2024-07-14 10:24 | P.PN ---
Subjective Date of Service: 07/14/24 Chief Complaint: Delirium Subjective: Improving (Is improving doing much better she is better than yesterday more oriented week) Review of Systems Unremarkable General: Weakness Physical Examination - Vital Signs Temperature: 97.8 F Blood Pressure: 158/58 Pulse: 85 Respirations: 24 Pulse Ox (%): 95 - Physical Exam General: Alert, Oriented x2 Respiratory: Clear to auscultation bilaterally Cardiovascular: No edema, Regular rate/rhythm, Normal S1 S2 Assessment And Plan - Current Problems (Diagnosis) (1) Anaphylactic shock due to peanuts Current Visit: Yes Status: Resolved Plan: Patient was extubated this morning complaining of a sore throat otherwise stable chemistries reviewed reduce dose of Solu-Medrol Magic mouthwash labs reviewed stable for transfer Qualifiers: Encounter type: subsequent encounter Qualified Code(s): T78.01XD - Anaphylactic reaction due to peanuts, subsequent encounter (2) Delirium Current Visit: Yes Status: Acute Plan: Patient is doing better delirium is improving to p.o. Augmentin and underlying sinusitis as per ENT labs chemistries all reviewed hemoglobin is stable count is normal call therapy discharge planning Physician Review: Patient Assessed, Agree with Above Assessment and Plan
--- NOTE | 2024-07-14 19:40 | RAD REPORT ---
EXAM DESCRIPTION: RAD - Chest Single View - 07/13/2024 1:06 am CLINICAL HISTORY: 74 years Female, Chest pain COMPARISON: Chest radiograph dated 07/11/2024 IMPRESSION: Chronic lung changes. No focal consolidation. Left lung base atelectasis or scarring No pleural effusion. No pneumothorax. Cardiomediastinal silhouette is within normal limits. No acute osseous abnormality. Electronically signed by: Miller Lancaster DO 07/13/2024 01:41 AM CDT RP 9 Due to temporary technical issues with the PACS/Fluency reporting system, reports are being signed by the in house radiologists without review as a courtesy to insure prompt reporting. The interpreting radiologist is fully responsible for the content of the report.
[2024-07-14] MEDS: AMOX/K CLAV 500 MG TAB PO SCH (20:17)
[2024-07-14] MEDS: THIAMINE HCL 100 MG TABLET PO SCH (20:17)
[2024-07-15 08:06] LABS: Absolute Eosinophils 0.2 K/uL (0-0.5); Absolute Lymphocytes (CBC) 0.8 K/uL (0.7-4.9); Absolute Monocytes 0.7 K/uL (0.1-1.3); Absolute Neutrophil 6.4 K/uL (1.8-8.0); Basophils % 0.2 % (0-1.3); Eosinophils % 2.9 % (0-4.4); Hematocrit 32.8 % (36.0-45.0); Hemoglobin 10.8 g/dL (12.0-15.0); Lymphocytes % 9.3 % (15.3-44.8); MCH 30.7 pg (27.0-35.0); MCV 92.8 fL (80-100); MPV 8.4 fL (7.6-11.3); Monocytes % 8.8 % (3.3-12.3); Neutrophils % 78.8 % (41.7-73.7); Platelets 187 thou/uL (152-406); RBC Red Blood Cell Count 3.54 M/uL (3.86-4.86); Red Cell Distribution Width 14.7 % (12.1-15.2)
--- NOTE | 2024-07-15 08:07 | P.PN ---
Subjective Date of Service: 07/15/24 Chief Complaint: Delirium Pt is resting comfortably in bed. she is eager to go home. Pt was extubated in the OR on 07/12/24 by ENT. She is using 2L BNC. The angioedema improved. She is AAOx1 and sitting on a chair. Consulted PT. Ok to downgrade pt. No other complaints. Review of Systems General: Unremarkable Eyes: Unremarkable ENT: Unremarkable Respiratory: Unremarkable Cardiovascular: Unremarkable Gastrointestinal: Unremarkable Genitourinary: Unremarkable Musculoskeletal: Unremarkable Integumentary: Unremarkable Neurological: Confusion Lymphatics: Unremarkable Physical Examination - Vital Signs Temperature: 97.1 F Blood Pressure: 155/52 Pulse: 70 Respirations: 20 Pulse Ox (%): 95 - Physical Exam General: Alert, In no apparent distress, Oriented x2 HEENT: Atraumatic, Normocephalic, PERRLA Neck: Supple, 2+ carotid pulse no bruit, JVD not distended Respiratory: Clear to auscultation bilaterally, Normal air movement Cardiovascular: No edema, Normal pulses, Regular rate/rhythm, Normal S1 S2 Capillary refill: <2 Seconds Gastrointestinal: Normal bowel sounds, Soft and benign, Non-distended Musculoskeletal: No clubbing, No swelling, No contractures Integumentary: No rashes, No breakdown, No significant lesion Neurological: Normal gait, Normal speech, Normal strength at 5/5 x4 extr, Normal tone Lymphatics: No axilla or inguinal lymphadenopathy Assessment And Plan - Plan Acute anaphylaxis: Pt is allergic to peanut. She had the episode after eating at a restaurant and she received 3 doses of Epipen. Will continue levaquin, solumedrol and benadryl. The facial swelling has resolved. Pt was extubated on 07/12/24 in the OR by ENT. Pt is using 2L BNC. Disorientation: Likely due to medical problems / ICU delirium. Will continue precedex/ prn haldol. Acute respiratory failure: Pulm is following. Pt was extubated this am in the OR by ENT. Pt is using 2L BNC. Hypokalemia: K is 3.1 <- 3.5 <- 3.2 <- 3.0 <- 2.8. Will replete and monitor. Hypomagnesemia: resolved. Mag is 2.4 <- 1.8. Will monitor. History of A-fib: Continue telemetry, amiodarone when able to swallow. No anticoagulation due to bleeding in ET tube. Currently in NSR. Hypertension: Continue coreg. Deconditioning: Will consult PT DVT ppx: Lovenox Code: full code Dispo: Pending hospital course. Ok to downgrade to med/surg. Physician Review: Patient Assessed, Agree with Above Assessment and Plan
[2024-07-15 08:15] LABS: Albumin 2.3 g/dL (3.4-5.0); Albumin/Globulin Ratio 0.7 (1.1-1.8); Anion Gap 13.1 mEq/L (5.0-15.0); Bilirubin Total 0.9 mg/dL (0.2-1.0); Globulin 3.1 g/dL (2.3-3.5); Potassium 3.1 mEq/L (3.5-5.1); Protein, Total 5.4 g/dL (6.4-8.2)
[2024-07-15] MEDS: MAGIC MOUTHWASH 180 ML BTL PO PRN (10:31)
[2024-07-15] MEDS: POTASSIUM CL SA 10 MEQ TAB PO SCH (10:34)
[2024-07-15] MEDS: KCL 20 MEQ/100 mL IVPB 20 MEQ/100 ML BAG IV SCH (11:17)
[2024-07-15] MEDS: POTASSIUM 25 MEQ EFFERV TAB PO ONE ×2 (14:12→20:28)
[2024-07-16 06:41] LABS: Absolute Eosinophils 0.3 K/uL (0-0.5); Absolute Monocytes 0.8 K/uL (0.1-1.3); Absolute Neutrophil 5.7 K/uL (1.8-8.0); Basophils % 0.4 % (0-1.3); Eosinophils % 3.5 % (0-4.4); Hematocrit 31.2 % (36.0-45.0); Hemoglobin 10.2 g/dL (12.0-15.0); Lymphocytes % 12.9 % (15.3-44.8); MCH 29.9 pg (27.0-35.0); MCHC 32.6 g/dL (32.0-36.0); MCV 91.6 fL (80-100); MPV 8.6 fL (7.6-11.3); Neutrophils % 73.2 % (41.7-73.7); Nucleated Red Blood Cells % 0.1 % (0-0); Platelets 203 thou/uL (152-406); Red Cell Distribution Width 14.7 % (12.1-15.2)
[2024-07-16 06:48] LABS: Albumin 2.4 g/dL (3.4-5.0); Albumin/Globulin Ratio 0.8 (1.1-1.8); Anion Gap 12.3 mEq/L (5.0-15.0); Bilirubin Total 0.7 mg/dL (0.2-1.0); Globulin 3.2 g/dL (2.3-3.5); Potassium 4.3 mEq/L (3.5-5.1); Protein, Total 5.6 g/dL (6.4-8.2)
--- NOTE | 2024-07-16 09:13 | P.PN ---
Subjective Date of Service: 07/16/24 Chief Complaint: Delirium Pt is resting comfortably in bed. She is eager to go home. Pt was extubated in the OR on 07/12/24 by ENT. She is oxygenating well on room air. Consulted PT. Off 2L BNC. The angioedema improved. She is AAOx2 and sitting in bed. Ok to downgrade pt. No other complaints. Review of Systems General: Unremarkable Eyes: Unremarkable ENT: Unremarkable Respiratory: Unremarkable Cardiovascular: Unremarkable Gastrointestinal: Unremarkable Genitourinary: Unremarkable Musculoskeletal: Unremarkable Integumentary: Unremarkable Neurological: Unremarkable Lymphatics: Unremarkable Physical Examination - Vital Signs Temperature: 97.8 F Blood Pressure: 154/53 Pulse: 81 Respirations: 14 Pulse Ox (%): 96 - Physical Exam General: Alert, In no apparent distress, Oriented x3 HEENT: Atraumatic, Normocephalic, PERRLA Neck: Supple, 2+ carotid pulse no bruit, JVD not distended Respiratory: Clear to auscultation bilaterally, Normal air movement Cardiovascular: No edema, Normal pulses, Regular rate/rhythm, Normal S1 S2 Capillary refill: <2 Seconds Gastrointestinal: Normal bowel sounds, Soft and benign, Non-distended Musculoskeletal: No clubbing, No swelling, No contractures Integumentary: No rashes, No breakdown, No significant lesion Neurological: Normal gait, Normal speech, Normal strength at 5/5 x4 extr Lymphatics: No axilla or inguinal lymphadenopathy Assessment And Plan - Plan Acute anaphylaxis: Pt is allergic to peanut. She had the episode after eating at a restaurant and she received 3 doses of Epipen. Will continue levaquin, solumedrol and benadryl. The facial swelling has resolved. Pt was extubated on 07/12/24 in the OR by ENT. Pt is off 2L BNC. Oxygenating well on room air. Disorientation: improved. Likely due to medical problems / ICU delirium. Will continue precedex/ prn haldol. Acute respiratory failure: Pulm is following. Pt was extubated on 07/12/24 in the OR by ENT. Pt is off 2L BNC. Hypokalemia: K is 4.3 <- 3.1 <- 3.5 <- 3.2 <- 3.0 <- 2.8. Will replete and monitor. Hypomagnesemia: resolved. Mag is 2.4 <- 1.8. Will monitor. History of A-fib: Continue telemetry, amiodarone when able to swallow. No anticoagulation due to bleeding in ET tube. Currently in NSR. Hypertension: Continue coreg. Deconditioning: Consulted PT DVT ppx: Lovenox Code: full code Dispo: Pending hospital course. Ok to downgrade to med/surg. Physician Review: Patient Assessed, Agree with Above Assessment and Plan
[2024-07-16 16:14] VITALS: BP 147/51; TEMP 97.3
[2024-07-16 16:40] VITALS: O2SAT 98
--- NOTE | 2024-07-16 17:23 | P.DS ---
Admission Date: 07/09/24 Discharge Date: 07/16/24 Disposition: DC HOME/HOME HEALTH CARE Discharge Condition: GOOD Reason for Admission: Delirium Brief History of Present Illness: 74-year-old female with past medical history of HTN/atrial fibrillation, CAD status post recent PCI to the right coronary artery 1 month ago;depression/anxiety, history of allergy to peanuts; who was eating at [employer] earlier this afternoon and developed sudden facial redness, swelling as well as difficulty with breathing. Son has given her a dose of EpiPen but symptoms continue to worsen. EMS were called. She received 2 more rounds of EpiPen as well as 2 doses of 25 mg Benadryl and 125 mg Solu-Medrol but symptoms still continue to worsen. Patient was brought to the emergency room and was noted to be having worsening stridor. She was intubated by the ER physician. Intubation was described as difficult as uvula and trachea wall was edematous. Postintubation patient have about 20 cc of bloody sputum aspirated. She is doing well on vent now. ABG was within expected range and vent settings reduced now. History obtained from ER physician and ER nurse since discussion. Family not at bedside. She has been admitted for acute anaphylaxis with respiratory failure. EKG shows normal sinus rhythm with no ST segment changes. CBC was unremarkable. BMP shows potassium of 2.7, proBNP of 1155, troponin was negative at 7.5 Hospital Course: Pt is a 74yo female with past medical history of HTN/atrial fibrillation, CAD status post recent PCI to the right coronary artery 1 month ago, depression/anxiety, and peanut allergy who presented with sudden facial redness, swelling as well as difficulty with breathing after eating at a restaurant. Family members suspected allergic reaction to peanut and gave 3 doses of Epipen, benadryl and solumedrol prior to admission in the ER. On admission, pt had strider and she was intubated to protect her air. It was difficult intubation due to edematous uvula and trachea. Post-intubation patient had about 20 cc of bloody sputum aspirated. We held anticoagulant and consulted Pulm for vent management. Pt was later extubated by the ENT in the OR and she oxygenated well on 4L BNC. We gave Augementin for tonsilitis. Pt was weaned off oxygen and ICU delirium resolved. She worked well with PT who recommended home health with PT. We repleted deficient electrolytes and continued home med for other chronic medical problems. Pt was in NAD prior to discharge. Vital Signs/Physical Exam: Temp Pulse Resp BP Pulse Ox 97.3 F 79 22 H 147/51 H 96 07/16/24 16:00 07/16/24 16:00 07/16/24 16:00 07/16/24 16:00 07/16/24 16:00 Laboratory Data at Discharge: WBC 7.70 thou/uL (4.3-10.9) 07/16/24 05:41 Hgb 10.2 g/dL (12.0-15.0) L 07/16/24 05:41 Hct 31.2 % (36.0-45.0) L 07/16/24 05:41 Plt Count 203 thou/uL (152-406) 07/16/24 05:41 PT 22.0 SECONDS (9.4-12.5) H 07/09/24 17:43 INR 2.00 07/09/24 17:43 Sodium 140 mEq/L (136-145) 07/16/24 05:41 Potassium 4.3 mEq/L (3.5-5.1) D 07/16/24 05:41 BUN 15 mg/dL (7-18) 07/16/24 05:41 Creatinine 0.51 mg/dL (0.55-1.02) L 07/16/24 05:41 Glucose 76 mg/dL (74-106) 07/16/24 05:41 Phosphorus 2.8 mg/dL (2.5-4.9) 07/11/24 05:12 Magnesium 2.2 mg/dL (1.6-2.4) 07/11/24 21:10 Total Bilirubin 0.7 mg/dL (0.2-1.0) 07/16/24 05:41 AST 107 U/L (15-37) H 07/16/24 05:41 ALT 111 U/L (13-56) H 07/16/24 05:41 Alkaline Phosphatase 77 U/L (45-117) 07/16/24 05:41 Triglycerides 80 mg/dL (<150) 07/10/24 05:13 Cholesterol 121 mg/dL (<200) 07/10/24 05:13 HDL Cholesterol 51 mg/dL (40-60) 07/10/24 05:13 Cholesterol/HDL Ratio 2.37 07/10/24 05:13 Home Medications: Atorvastatin Calcium [Lipitor] 40 mg PO BEDTIME 01/03/17 Furosemide [Lasix*] 40 mg PO DAILY 01/03/17 Amiodarone HCl 200 mg PO DAILY 05/25/23 Omeprazole [Prilosec] 40 mg PO DAILY 05/25/23 Isosorbide Mononitrate [Isosorbide Mononitrate ER] 30 mg PO DAILY 06/05/24 Sertraline [Zoloft*] 100 mg PO DAILY 06/05/24 carvediloL [Coreg*] 12.5 mg PO BID 06/05/24 clonazePAM [Clonazepam] 0.5 mg PO BIDP PRN 06/05/24 Ticagrelor [Brilinta*] 90 mg PO BID 30 Days #60 tab 06/08/24 Rivaroxaban [Xarelto] 20 mg PO DAILY 07/11/24 Amox/Clavulanate [Augmentin 500-125 mg Tab*] 500 mg PO BID 3 Days #6 tab 07/16/24 New Medications: Amox/Clavulanate [Augmentin 500-125 mg Tab*] 500 mg PO BID 3 Days #6 tab Physician Discharge Instructions: Continue ad spencer activity as tolerated. Take augmentin for 3 more days. Continue other home meds. Follow up with PCP within 1 - 2 weeks. Continue home health with Physical therapy. Diet: AHA Activity: Ad spencer Followup: Roly Joseph MD [Primary Care Provider] -
--- NOTE | 2024-07-17 17:03 | EKG ---
Test Date: 2024-07-13 Test Time: 00:57:37 Sorority Supervisor: [place] MEASUREMENT RESULTS: Intervals: Rate: 103 CA: 168 QRSD: 88 QT: 356 QTc: 466 [place]: P: 77 CA: 168 QRS: 54 T: 77 INTERPRETIVE STATEMENTS: Sinus tachycardia ST abnormality, possible digitalis effect Abnormal ECG Compared to ECG 07/09/2024 17:44:29 Sinus rhythm no longer present Prolonged QT interval no longer present ST (T wave) deviation still present Electronically Signed On 07-17-24 16:56:52 CDT by Travis Coello
== END 2024-07-16 19:30 | disposition home or self-care (01) | DRG 208 ==
LOC: ER 17:26 → ERHOLD 20:36 → 3RD-ICU 22:12
PROVIDERS: ADMIT Internal Medicine; ATTEND Hospitalist
PROC: 5A1945Z Respiratory Ventilation, 24-96 Consecutive Hours (ICD-10-PCS; principal; 2024-07-09)
PROC: 0BH18EZ Insertion of Endotracheal Airway into Trachea, Via Natural or Artificial Opening Endoscopic (ICD-10-PCS; 2024-07-09)
PROC: 4A033R1 Measurement of Arterial Saturation, Peripheral, Percutaneous Approach (ICD-10-PCS; 2024-07-09)
PROC: 0CJS8ZZ Inspection of Larynx, Via Natural or Artificial Opening Endoscopic (ICD-10-PCS; 2024-07-12)
PROC: 0DH67UZ Insertion of Feeding Device into Stomach, Via Natural or Artificial Opening (ICD-10-PCS; 2024-07-12)
DX: J96.00 Acute respiratory failure, unspecified whether with hypoxia or hypercapnia (principal); I50.31 Acute diastolic (congestive) heart failure; T78.01XA Anaphylactic reaction due to peanuts, initial encounter; F05 Delirium due to known physiological condition; I11.0 Hypertensive heart disease with heart failure; T78.3XXA Angioneurotic edema, initial encounter; I48.91 Unspecified atrial fibrillation; E78.5 Hyperlipidemia, unspecified; E83.42 Hypomagnesemia; E87.6 Hypokalemia; K21.9 Gastro-esophageal reflux disease without esophagitis; I25.10 Atherosclerotic heart disease of native coronary artery without angina pectoris; R58 Hemorrhage, not elsewhere classified; Z78.1 Physical restraint status; Z95.1 Presence of aortocoronary bypass graft; Z79.82 Long term (current) use of aspirin; Z79.01 Long term (current) use of anticoagulants; Z79.02 Long term (current) use of antithrombotics/antiplatelets; Z91.010 Allergy to peanuts; Z79.899 Other long term (current) drug therapy
CPT/HCPCS: 31500; 36415; 36600; 51702; 71045; 74018; 80048; 80053; 80061; 80076; 82805; 82947; 83735; 83880; 84100; 84132; 84484; 85025; 85610; 92526; 92610; 93005; 94002; 94003; 94760; 97116; 97163; 97530; 99291; J0171; J0360; J1200; J1630; J1650; J1940; J2250; J2704; J2919; J3010; J3411; J3475; J3480; J7040; J7050; J7120; J7613; J7644

== ENCOUNTER 2024-11-02 07:31 | Day surgery (SDC) | payer OTHER ==
[2024-10-29 13:59] LABS: Absolute Eosinophils 0.1 K/uL (0-0.5); Absolute Lymphocytes (CBC) 1.3 K/uL (0.7-4.9); Absolute Monocytes 0.5 K/uL (0.1-1.3); Absolute Neutrophil 4.5 K/uL (1.8-8.0); Basophils % 0.7 % (0-1.3); Eosinophils % 1.1 % (0-4.4); Hematocrit 33.9 % (36.0-45.0); Hemoglobin 10.9 g/dL (12.0-15.0); Lymphocytes % 20.2 % (15.3-44.8); MCHC 32.2 g/dL (32.0-36.0); MCV 90.2 fL (80-100); MPV 8.9 fL (7.6-11.3); Monocytes % 7.4 % (3.3-12.3); Neutrophils % 70.6 % (41.7-73.7); Platelets 257 thou/uL (152-406); RBC Red Blood Cell Count 3.76 M/uL (3.86-4.86); Red Cell Distribution Width 17.2 % (12.1-15.2)
[2024-10-29 14:05] LABS: PT Prothrombin Time 12.1 SECONDS (9.4-12.5); PTT, Activated Partial Thromb 30.2 SECONDS (24.3-36.9); Protime INR 1.08
[2024-10-29 14:10] LABS: Anion Gap 6.7 mEq/L (5.0-15.0); Potassium 3.7 mEq/L (3.5-5.1)
[2024-11-02] MEDS ORDERED: Xeomin 100 Unit Vial IM ONE (07:32)
[2024-11-02] MEDS: Ringers Lactate 1,000 ML IV ONE (08:00)
[2024-11-02] MEDS ORDERED: FENTANYL CITR 100 MCG/2 ML ONE (09:42)
[2024-11-02] MEDS ORDERED: MIDAZOLAM HCL 2 MG/2 ML INJ ONE (09:42)
[2024-11-02] MEDS ORDERED: propofoL 200 MG/20 ML VIAL IV ONE ×2 (09:42→10:43)
[2024-11-02] MEDS ORDERED: LIDOCAINE 2% MPF 5 ML VIAL ONE (09:43)
[2024-11-02] MEDS ORDERED: ONDANSETRON 4 MG/2 ML VIAL ONE (09:44)
[2024-11-02] MEDS ORDERED: LIDOCAINE HCL/EPINEPHRINE 20 ML MDV ONE (11:02)
[2024-11-02] MEDS ORDERED: EPINEPHRINE 1 MG/ML VIAL ONE (11:02)
[2024-11-02] MEDS: Xeomin 100 Unit Vial IM ONE (11:51)
[2024-11-02] MEDS ORDERED: SUCCINYLCHOLINE 20 MG/ML (10 ML) IV ONE (12:20)
--- NOTE | 2024-11-02 12:48 | P.OP ---
Shoulder Joiner: NONE,NONE Preoperative diagnosis: cricopharyngeal spasm, dysphagia Postoperative diagnosis: same Primary procedure: rigid esophagoscopy with submucosal injection Anesthesia: general Estimated blood loss: nil Specimen: none Findings: promiment cricopharyngeal bar Operative Technique: The patient was brought to the operating room placed under general anesthesia via oral endotracheal tube. A tooth guard was placed and the rigid esophagoscope was passed through the oral cavity past the palate and base of tongue. The arytenoids and endotracheal tube was visualized and the tip of the esophagoscope was passed posteriorly to the structures and into the esophageal introitus. The cricopharyngeal bar was visualized. The scope was judiciously passed around the cricopharyngeal bar to the length of the cervical esophagoscope. Secretions were suctioned. There was no evidence of significant mucosal abnormality noted. The esophagoscope was removed and the injection was prepared Xeomin 100 units was reconstituted with 1.4 mL of sterile saline resulting in a solution of 7 units per 0.1 mL. This was loaded into a side kick needle along with a syringe. The rigid esophagus scope was again used to perform complete esophagoscopy and positioned at the cricopharyngeal bar. The needle was advanced through the esophagus scope and 4 injections of 0.1 mL each were placed into the cricopharyngeal bar submucosally. This resulted in a total dose of 28 units of Xeomin. The needle was removed and the esophagoscope was removed. The rubber tooth guard was removed and the patient was returned to care of anesthesia for awakening extubation in the operating room which proceeded without difficulty. Complications: None Fluids & blood products: see anesthesia record Transferred to: Recovery Room Condition: Good
[2024-11-02 13:25] VITALS: BP 129/85; TEMP 97.5; O2SAT 99
[2024-11-02] MEDS: ACETAMINOPHEN 325 MG TABLET ONE (13:35)
== END 2024-11-02 14:15 | disposition home or self-care (01) ==
LOC: OR 07:31
PROVIDERS: ATTEND Otolaryngology
PROC: 3E0D7GC Introduction of Other Therapeutic Substance into Mouth and Pharynx, Via Natural or Artificial Opening (ICD-10-PCS; principal; 2024-11-02 09:00)
DX: J39.2 Other diseases of pharynx (principal); R13.10 Dysphagia, unspecified
CPT/HCPCS: 85025; 80048; 36415; 85610; 85730; 43192; J2704; J2003; J2250; J3010; J2405; J0588; J7120; J0171